=== PATIENT | female | born 1950 | race Caucasian/White ===

== ENCOUNTER 2020-12-26 09:36 | Outpatient (CLI) | payer MEDICARE, OTHER, SELFPAY ==
--- NOTE | ~2020-12-26 | NM_ITS ---
EXAMINATION: NM stress w perf spect multi DATE: 12/26/2020 13:14 INDICATION: Atypical chest pain. TECHNIQUE: Rest images were obtained following intravenous administration of 11.22 mCi Tc99m tetrofos min (Myoview). The patient performed an exercise activity. At peak exercise, 33.1 mCi Tc99m tetrofosm in (Myoview) was administered intravenously, and stress images were obtained. Data was reconstructed into short axis and horizontal and vertical long axis SPECT images. Gated SPECT images were also obta ined. COMPARISON: None. FINDINGS: There is no definite reversible or fixed perfusion abnormality to suggest ischemia or infar ction. There is no segmental wall motion abnormality. Left ventricular ejection fraction measures > 70%. IMPRESSION: 1. No definite ischemia or infarct. 2. Normal left ventricular ejection fraction measuring >70%. Reviewed, dictated and finalized at location B.
--- NOTE | 2020-12-26 10:55 | EST_ITS ---
Patient Info Name: Terri Zheng Age: 70 years : 1950 Gender: Female Ht: 68 in Wt: 195 lbs BSA: 2.08 m2 HR: 67 bpm BP: 150 / 78 mmHg Heart Rhythm: Sinus Rhythm Exam Date: 12/26/2020 11:11 AM Exam Location: [facility] Stress Patient Status: Outpatient Admit Date: 12/26/2020 Staff Ordering Physician: Skinny Zarate DO Attending Provider: Skinny Zarate DO Exercise Technologist: Nando Cartagena RDCS, RT Exercise Physician: Turner Tomlinson DO Exam Type: CA stress test treadmill w NM Study Info Indications - ATYPICAL CHEST PAIN, [place] A nuclear stress test was performed. Summary 1. 1. Negative Phil exercise stress test for ischemic ST changes by ECG criteria. 2. 2. Reduced functional capacity, achieving 4.7 METs of workload. 3. 3. Baseline hypertension with hypertensive response to exercise. 4. 4. Rapid HR response to exercise. 5. 5. Appropriate HR recovery at 1 minute post exercise. 6. 6. Nuclear scan to follow and will be reported separately. Please correlate with it. 7. 7. Patient informed of the above results. Protocol: Phil Stress ECG Details Stage: REST Duration (min): 4 min : 56 sec Speed (mph): 0.0 Grade (%): 0 HR (bpm): 67 SBP (mmHg): 150 DBP (mmHg): 78 METS: --- Stage: REST Duration (min): 5 min : 16 sec Speed (mph): 0.0 Grade (%): 0 HR (bpm): 74 SBP (mmHg): 150 DBP (mmHg): 78 METS: --- Stage: STAGE 1 Duration (min): 1 min : 0 sec Speed (mph): 1.7 Grade (%): 10 HR (bpm): 118 SBP (mmHg): 150 DBP (mmHg): 78 METS: --- Stage: STAGE 1 Duration (min): 2 min : 0 sec Speed (mph): 1.7 Grade (%): 10 HR (bpm): 136 SBP (mmHg): 150 DBP (mmHg): 78 METS: --- Stage: STAGE 1 Duration (min): 2 min : 59 sec Speed (mph): 1.7 Grade (%): 10 HR (bpm): 143 SBP (mmHg): 204 DBP (mmHg): 103 METS: --- Stage: RECOVERY Duration (min): 1 min : 0 sec Speed (mph): 0.0 Grade (%): 0 HR (bpm): 109 SBP (mmHg): 204 DBP (mmHg): 103 METS: --- Stage: RECOVERY Duration (min): 2 min : 0 sec Speed (mph): 0.0 Grade (%): 0 HR (bpm): 88 SBP (mmHg): 204 DBP (mmHg): 103 METS: --- Stage: RECOVERY Duration (min): 2 min : 13 sec Speed (mph): 0.0 Grade (%): 0 HR (bpm): 78 SBP (mmHg): 204 DBP (mmHg): 103 METS: --- Rest HR: 74 bpm Peak HR: 161 bpm Rest Sys BP: 150 mmHg Peak Sys BP: 204 mmHg Max Pred HR: 150 bpm % Max Pred HR: 107 % Target HR: 128 bpm Max RPP: 32,844 bpm*mmHg Jenkins Score: -7 Termination Reason: Reached target heart rate or workload Cardiac Symptoms: Shortness of breath Max ST Seg Deviation: -2 mm Total Time: 2 min : 59 sec Rest Odonnell BP: 78 mmHg Peak Odonnell BP: 103 mmHg Angina Score: None Total METS: 4.7 Resting ECG Sinus rhythm. Stress ECG No ST changes. Arrhythmias None. Report Signatures
== END 2020-12-26 09:37 | disposition home or self-care (01) ==
LOC: ANHCARD 09:39
PROVIDERS: PCP Internal Medicine; Visit Provider Internal Medicine
DX: R07.89 Other chest pain (principal); R06.00 Dyspnea, unspecified
CPT/HCPCS: 78452; 93017; A9502

== ENCOUNTER 2021-01-28 07:32 | Outpatient (CLI) | payer MEDICARE, OTHER, SELFPAY ==
--- NOTE | 2021-01-28 07:55 | ECHO_ITS ---
Patient Info Name: Terri Zheng Age: 70 years : 1950 Gender: Female Ht: 68 in Wt: 195 lbs BSA: 2.08 m2 HR: 70 bpm BP: 163 / 90 mmHg Heart Rhythm: Sinus Rhythm Exam Date: 01/28/2021 8:09 AM Exam Location: [facility] Pulmonary Patient Status: Outpatient Admit Date: 01/28/2021 Staff Ordering Physician: Turner Tomlinson DO [employer] Aide: Nickie Duran RDCS Attending Provider: Turner Tomlinson DO Exam Type: CA echo doppler color flow Study Info Indications R06.00 - Dyspnea, unspecified Complete two-dimensional, color flow and Doppler transthoracic echocardiogram is performed. Summary 1. Complete two-dimensional, color flow and Doppler transthoracic echocardiogram is performed. 2. Left ventricular chamber dimension is normal. 3. Left ventricular systolic function is normal, estimated at 60-65%. 4. The left ventricular diastolic function is grade I diastolic dysfunction. 5. E/e' 11 is mildly elevated. 6. There is trace tricuspid valve regurgitation. 7. No pulmonary hypertension, estimated pulmonary arterial systolic pressure is 27 mmHg. Left Ventricle E/e' 11 is mildly elevated. Left ventricular chamber dimension is normal. Left ventricular systolic function is normal, estimated at 60-65%. The left ventricular diastolic function is grade I diastolic dysfunction. Right Ventricle Right ventricular chamber dimension is normal. Right ventricular systolic function is normal. Left Atria Left atrial chamber dimension is normal. Right Atria Right atrial chamber dimension is normal. Aortic Valve The aortic valve is trileaflet. There is no aortic valve stenosis. There is no aortic valve regurgitation. Pulmonic Valve There is no pulmonic regurgitation. Mitral Valve There is no mitral valve stenosis. There is no mitral valve regurgitation. Tricuspid Valve There is trace tricuspid valve regurgitation. No pulmonary hypertension, estimated pulmonary arterial systolic pressure is 27 mmHg. Pericardium/Pleural There is no pericardial effusion. Inferior Vena Cava Normal inferior vena cava with >50% collapse upon inspiration consistent with normal right atrial pressure, 5 mmHg. Aorta The aortic root size at the sinus of Valsalva is normal. Left Ventricular Outflow Tract Name Value Normal LVOT 2D LVOT Diameter 1.9 cm LVOT Doppler LVOT Peak Gradient 4 mmHg LVOT Mean Gradient 2 mmHg LVOT VTI 26 cm LVOT VTI/AV VTI Ratio 0.8 LVOT Stroke Volume 73 ml LVOT CO 4.1 l/min LVOT CI 2.0 l/min/m2 Pulmonic Valve Name Value Normal RVOT Doppler RVOT Peak Gradient 1 mmHg PV Doppler
== END 2021-01-28 07:33 | disposition home or self-care (01) ==
LOC: ANHCARD 07:34
PROVIDERS: PCP Internal Medicine; Visit Provider Internal Medicine Cardiovascular Disease
DX: R06.00 Dyspnea, unspecified (principal)
CPT/HCPCS: 93306

== ENCOUNTER 2021-07-08 09:58 | Outpatient (CLI) | payer MEDICARE, OTHER, SELFPAY ==
--- NOTE | 2021-07-08 | ECG_ITS ---
Measurements Intervals [place] Rate: 53 P: 67 TX: 158 QRS: 20 QRSD: 90 T: 36 QT: 436 QTc: 410 Interpretive Statements SINUS BRADYCARDIA BORDERLINE ECG Electronically Signed On 07-08-2021 11:02:05 CDT by Turner Tomlinson D.O.
--- NOTE | ~2021-07-08 | XR_ITS ---
EXAMINATION: XR chest 2V DATE: 07/08/2021 11:06 INDICATION: Fatigue and chest pain TECHNIQUE: PA and lateral views of the chest are obtained. COMPARISON: 02/01/2019 FINDINGS: The lungs are free of acute opacities. There is no pleural effusion or pneumothorax. The ca rdiomediastinal silhouette is normal. There is moderate thoracic spondylosis. An old healed fracture of the left proximal humerus is noted. Surgical clips in the right upper quadrant are likely from nancy or cholecystectomy. IMPRESSION: 1. No acute cardiopulmonary abnormality. Reviewed, dictated and finalized at location B.
[2021-07-08 10:31] LABS: Basophils Absolute Auto 0.1 K/mm3 (0.0-0.1); Basophils Percent Auto 1.5 % (0.2-1.2); Eosinophils Absolute Auto 0.1 K/mm3 (0-0.3); Eosinophils Percent Auto 3.9 % (0-4.4); Hematocrit 42.7 % (37.0-47.0); Immature Granulocyte Absolute 0.01 K/mm3 (0.00-0.031); Immature Granulocyte Percent A 0.3 % (0-0.5); Lymphocytes Absolute Auto 0.84 K/mm3 (0.9-3.2); Lymphocytes Percent Auto 25.3 % (18.3-44.2); Mean Corpuscular HGB Conc 32.8 g/dl (32-36); Mean Corpuscular Hemoglobin 30.6 pg (26-34); Mean Corpuscular Volume 93.2 fl (80-100); Mean Platelet Volume 9.2 fl (7.4-10.4); Monocytes Absolute Auto 0.4 K/mm3 (0.1-0.6); Monocytes Percent Auto 12.3 % (2.6-8.5); Neutrophils Absolute Auto 1.9 K/mm3 (1.3-6.7); Neutrophils Percent Auto 56.7 % (45.5-73.1); Platelet Count Result 216 k/mm3 (150-375); Red Blood Count 4.58 M/mm3 (4.2-5.4); Red Cell Distribution Width 11.7 % (11.5-14.5); White Blood Count 3.3 K/mm3 (4.5-10.0)
[2021-07-08 12:48] LABS: INR 0.9; Prothrombin Time 12.1 Seconds (11.1-14.7)
[2021-07-08 12:49] LABS: Partial Thromboplastin Time 29.2 SECONDS (22.3-36.8)
[2021-07-08 14:24] LABS: Alanine Aminotransferase 16 U/L (4-35); Albumin Level 4.5 g/dL (3.5-5.1); Alkaline Phosphatase 90 U/L (38-126); Anion Gap 8 mmol/L (8-16); Aspartate Amino Transferase 34 U/L (14-36); Bilirubin,Total 0.8 mg/dL (0.2-1.3); Blood Urea Nitrogen 17 mg/dL (7-17); Calcium 9.7 mg/dL (8.4-10.2); Carbon Dioxide 32 mmol/L (22-30); Chloride 100 mmol/L (98-107); Estimated Glomerular Filt Rate > 60; Glucose 110 mg/dL (65-110); Potassium 3.2 mmol/L (3.4-5.0); Sodium 140 mmol/L (137-145)
== END 2021-07-08 09:59 | disposition home or self-care (01) ==
PROVIDERS: PCP Internal Medicine
DX: Z01.818 Encounter for other preprocedural examination (principal); Z79.01 Long term (current) use of anticoagulants
CPT/HCPCS: 36415; 71046; 80053; 85025; 85610; 85730; 93005

== ENCOUNTER 2022-10-06 09:26 | Outpatient (CLI) | payer MEDICARE, OTHER, SELFPAY ==
--- NOTE | 2022-10-06 10:56 | ECG_ITS ---
Measurements Intervals [place] Rate: 66 P: 51 WI: 150 QRS: 16 QRSD: 84 T: 34 QT: 400 QTc: 421 Interpretive Statements SINUS RHYTHM ATRIAL PREMATURE COMPLEX BASELINE ARTIFACT- I, III, AVR, AVL, AVF, V1-V6 BORDERLINE ECG COMPARED TO ECG 07/08/2021 10:44:37 SINUS RHYTHM NOW PRESENT Electronically Signed On 10-06-2022 12:06:57 INSURANCE AUDITOR by Turner Tomlinson D.O.
[2022-10-06 11:59] LABS: Basophils Absolute Auto 0.1 K/mm3 (0.0-0.1); Basophils Percent Auto 1.1 % (0.2-1.2); Eosinophils Absolute Auto 0.1 K/mm3 (0-0.3); Hematocrit 44.1 % (37.0-47.0); Lymphocytes Absolute Auto 1.03 K/mm3 (0.9-3.2); Lymphocytes Percent Auto 23.6 % (18.3-44.2); Mean Corpuscular HGB Conc 31.7 g/dl (32-36); Mean Corpuscular Hemoglobin 30.2 pg (26-34); Mean Corpuscular Volume 95.2 fl (80-100); Mean Platelet Volume 10.1 fl (7.4-10.4); Monocytes Absolute Auto 0.5 K/mm3 (0.1-0.6); Monocytes Percent Auto 11.5 % (2.6-8.5); Neutrophils Absolute Auto 2.7 K/mm3 (1.3-6.7); Neutrophils Percent Auto 60.8 % (45.5-73.1); Platelet Count Result 266 k/mm3 (150-375); Red Blood Count 4.63 M/mm3 (4.2-5.4); Red Cell Distribution Width 12.2 % (11.5-14.5); White Blood Count 4.4 K/mm3 (4.5-10.0)
[2022-10-06 12:07] LABS: Urine Cotinine NEGATIVE
[2022-10-06 12:10] LABS: Albumin Level 4.3 g/dL (3.5-5.1); Anion Gap 6 mmol/L (8-16); Blood Urea Nitrogen 21 mg/dL (7-17); Calcium 9.4 mg/dL (8.4-10.2); Carbon Dioxide 32 mmol/L (22-30); Chloride 101 mmol/L (98-107); Estimated Glomerular Filt Rate > 60; Glucose 95 mg/dL (65-110); Potassium 4.7 mmol/L (3.4-5.0); Sodium 139 mmol/L (137-145)
[2022-10-06 12:13] LABS: Hemoglobin A1C 5.3 % (<5.7)
== END 2022-10-06 09:27 | disposition home or self-care (01) ==
LOC: ANHSURGERY 09:34
PROVIDERS: PCP Internal Medicine; Visit Provider Orthopaedic Surgery
DX: M17.12 Unilateral primary osteoarthritis, left knee (principal); Z01.818 Encounter for other preprocedural examination; R94.31 Abnormal electrocardiogram [ECG] [EKG]
CPT/HCPCS: 80048; 80307; 82040; 83036; 85025; 87081; 93005

== ENCOUNTER 2022-10-22 01:25 | Day surgery (SDC) | payer MEDICARE, OTHER, SELFPAY ==
[2022-10-06 09:56] VITALS: BMI 31.5
--- NOTE | 2022-10-06 10:29 | PC.NURSE ---
Addendum entered by Meseret Edmonds RN 10/06/22 10:35: TOTAL JOINT CLASS 10/08/22 AT 10 AM Original Note: Report to the Outpatient Waiting Room, entrance under the green pavilion located off [address], at time _1000 on date _10/22/22 . Planned Procedure Time: __1200 . Time changes happen often and if your time is changed the preop area will call you the afternoon before. - You and your visitor will be asked to self-screen and do not enter if you have any COVID symptoms. - Only one visitor is requested with a max of two and NO children visitors are allowed at this time. - The patient visitor may be requested to leave or wait in car when not with patient due to distancing restrictions. - A mask is optional within the hospital at this time. Patients may have clear liquids (water, carbonated beverages, clear teas, apple juice) until 3 hours prior to surgery with a maximum of 20 ounces. - No food from midnight until time of surgery - Infants may have breast milk until 4 hours before surgery, formula 6 hours prior to surgery. - Children will be allowed to drink immediately following surgery. If applicable, please bring a bottle or sippy cup to assist with drinking. Juice, water, soda, and popsicles are readily available. For infants on formula, please bring formula the day of surgery. Pacifiers are allowed. Take the following medications with a SIP of water the morning of surgery: ___NONE DO NOT STOP ANY OF YOUR OTHER PRESCRIPTION MEDICATIONS PRIOR TO SURGERY ?EXCEPT THE FOLLOWING Medications to discontinue per physician _ASPIRIN AND NAPROXEN 7 DAYS PRE OP PER DR MIMS .LAST DOSE 10/14/22. ALL VITAMINS AND SUPPLEMENTS 3 DAYS PRE OP. LAST DOSE 10/18/22 Please no make-up, nail central african, hairspray, perfume, deodorant, or body powder the day of surgery. No jewelry (including any body piercings) or valuables the day of surgery, leave them at home. Please take a shower or bath the night before, or the morning of, surgery with an antibacterial soap. Wear comfortable, loose fitting clothing. Children are encouraged to wear pajamas. - Jewelry must be removed prior to entering the operating room. Rings and piercings that are not removed may be cut off. - The hospital will not accept responsibility for valuables. - Please leave all valuables, including medications, at home the day of surgery. If you are going home after surgery, a licensed backhaul driver must drive you home. - NO public transportation without another adult if you receive anesthesia. - We recommend that an adult stay with you for 24 hours following discharge. - We also recommend that you do not drive, make important decision, drink alcoholic beverages, or take any drugs that were not prescribed by your health care provider for at least 24 hours after your discharge time. Follow any additional instructions given to you from your surgeon. If you or anyone in your household have experienced Covid symptoms in the past week, please notify your surgeon or the nurse liaison at the phone number below for possible testing. VERBAL AND WRITTEN instructions given to __PATIENT AND SPOUSE AL and asked if any additional questions and then verbalized understanding. Patient advised to call surgeon office or pre surgery nurse liaison [phone] if any additional questions.
[2022-10-06 10:49] VITALS: BP 132/73; PULSE 67; RESP 18; TEMP 37.3; O2SAT 99
--- NOTE | 2022-10-20 12:32 | PM.IMHP ---
H&P: HPI History of Present Illness Date/Time: 10/20/22 12:32 Chief Complaint: Left knee DJD Narrative: 71-year-old female who presents today for left total knee arthroplasty. She had her right knee replaced in 2019. She is very happy with the results. 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 He has been treating this nonsurgically at this point she is having symptoms on regular basis. She feels this point she is ready proceed with total knee arthroplasty. Review of Systems Review of Systems: All systems reviewed & are unremarkable except as noted in HPI and below PMFSH Past Medical History Medical History Drop foot gait Neuropathy Surgical History Surgical History (Updated 10/22/22 @ 11:33 by Braden Patel MD) History of total knee arthroplasty Family History Family History Father Family history of malignant neoplasm Patient's father is Mother Family history of malignant neoplasm Patient's mother is Other Depression Family history of alcoholism Family history of atrial fibrillation Family history of chronic obstructive pulmonary disease Family history of congestive heart failure Family history of elevated blood lipids Family history of lung disease Family history of malignant neoplasm of breast in first degree relative Family history of mental disorder Family history of obesity Hypertension Social History Social History Years smoked: 2 Smoking status: Former smoker Tobacco type: cigarettes Second hand tobacco smoke exposure: No Smoking end date: 09/07/74 Additional smoking assessment comments: DENIES ANY FORM OF TOBACCO USE Alcohol intake: current Lack of Transportation: No Lack of Food: Never True Current Housing: I Have Housing Concerned About Future Housing: No Difficulty Paying Gas/Electric Bills: No Difficulty Paying for Meds: No Currently Unemployed: No Education: Master's Degree or Higher Difficulty w/ Childcare or Family Care: No Living arrangements: with family Spiritual care concerns: No Meds Home Medications and Allergies Home Medications Medication Instructions Recorded Confirmed Type ascorbic acid (vitamin C) 1,000 mg 1 gm PO DAILY 12/20/19 10/22/22 History tablet glucosamine [id number] 1 tablet PO DAILY 12/20/19 10/22/22 History miles 1,500 mg-400 unit-100 mg tablet (Osteo Bi-Flex (5-Loxin)) diphenhydramine HCl 25 mg tablet 25 mg PO QID PRN Allergy Symptoms 06/20/20 10/22/22 History (Benadryl Allergy) aspirin 325 mg tablet 325 mg PO DAILY PRN Pain 01/08/21 10/22/22 History famotidine 20 mg tablet (Pepcid) 20 mg PO DAILY PRN Heartburn 01/08/21 10/22/22 History naproxen sodium 220 mg capsule 220 mg PO BID PRN Pain 01/08/21 10/22/22 History (Aleve) indapamide 1.25 mg tablet 1.25 mg PO DAILY #90 tabs 08/09/22 10/22/22 Rx olmesartan 20 mg tablet 20 mg PO DAILY #90 tabs 08/25/22 10/22/22 Rx alpha lipoic acid 600 mg tablet 1,200 mg PO DAILY 10/06/22 10/22/22 History zvma-dwoxmcebv-slpjfjbcdneyi-aldioxa 1 ea topical PRN PRN FUNGAL 10/06/22 10/22/22 History topical powder ergocalciferol (vitamin D2) 1,250 1,250 mcg PO WEEKLY #13 caps 10/21/22 10/22/22 Rx mcg (50,000 unit) capsule (Vitamin D2) simvastatin 40 mg tablet 40 mg PO DAILY #90 tabs 10/21/22 10/22/22 Rx Allergies Allergy/AdvReac Type Severity Reaction Status Date / Time amlodipine Allergy Mild headache Verified 10/06/22 09:57 and tachycardia lisinopril Allergy Mild Cough Verified 10/06/22 09:57 nickel AdvReac Severe RASH Verified 10/22/22 09:52 omega-3 acid ethyl esters AdvReac Severe HEADACHES Verified 10/22/22 09:52 watermelon AdvReac Severe HEADACHES Verified 10/22/22 09:52 guaifen
[2022-10-22] VITALS (12 sets, daily range): BP systolic 122–135; BP diastolic 56–66; PULSE 71–104; RESP 12–20; TEMP 36.2–37.4; O2SAT 94–100
--- NOTE | ~2022-10-22 | XR_ITS ---
EXAMINATION: XR knee LT 2V DATE: 10/22/2022 15:55 INDICATION: Left knee arthroplasty. Postop. TECHNIQUE: 2 views of left knee were obtained. COMPARISON: None. FINDINGS: There is a total left knee arthroplasty without patellar resurfacing in near-anatomic align ment. No fracture. There are tiny osteophytes of the patella. There is gas in the knee joint and soft tissues, consistent with recent surgery. IMPRESSION: 1. Total left knee arthroplasty in near-anatomic alignment. Reviewed, dictated and finalized at location A. OR [employer] DIRECT[employer]
[2022-10-22] MEDS: ACETAMINOPHEN 500 MG TABLET 1000 MG PO ×2 (10:13→17:46)
[2022-10-22] MEDS: LACTATED RINGERS 1,000 ML 30 ML IV CONT ×2 (10:20→15:55)
--- NOTE | 2022-10-22 11:33 | WPDANESEPPF ---
Anes - Initial Pre Proc Eval Procedure: Operation Date: 10/22/22 12:00 Proposed Procedures p Left Total Knee Arthroplasty - Sarabjit Sims MD Date/Time: 10/22/22 11:33 Surgeon: Sarabjit Sims MD Pre Op Diagnosis: O.A. Lt Knee Patient Data Age: 71 Gender: F Height: 1.73 m Weight: 92 kg Last Vital Signs Temp 36.5 C 10/22/22 09:48 Pulse 71 10/22/22 09:48 Resp 20 10/22/22 09:48 BP 128/62 10/22/22 09:48 Pulse Ox 100 10/22/22 09:48 O2 Del Method Room Air 10/22/22 09:48 Allergies Allergy/AdvReac Type Severity Reaction Status Date / Time amlodipine Allergy Mild headache Verified 10/06/22 09:57 and tachycardia lisinopril Allergy Mild Cough Verified 10/06/22 09:57 nickel AdvReac Severe RASH Verified 10/22/22 09:52 omega-3 acid ethyl esters AdvReac Severe HEADACHES Verified 10/22/22 09:52 watermelon AdvReac Severe HEADACHES Verified 10/22/22 09:52 guaifenesin AdvReac Intermediate GETS Verified 10/06/22 09:57 SEVERELY DEPRESSED hydrocodone AdvReac Intermediate Hallucinati Verified 10/06/22 09:57 ng morphine AdvReac Intermediate Hallucinati Verified 10/06/22 09:57 ng erythritol AdvReac Mild Diarrhea Verified 10/22/22 09:52 spironolactone AdvReac Mild Leg pain Verified 10/22/22 09:52 CARDAMOM Allergy Severe THROAT Uncoded 10/06/22 09:57 SWELLING. Home Medications Medication Instructions Recorded Confirmed Type ascorbic acid (vitamin C) 1,000 mg 1 gm PO DAILY 12/20/19 10/22/22 History tablet glucosamine [id number] 1 tablet PO DAILY 12/20/19 10/22/22 History miles 1,500 mg-400 unit-100 mg tablet (Osteo Bi-Flex (5-Loxin)) diphenhydramine HCl 25 mg tablet 25 mg PO QID PRN Allergy Symptoms 06/20/20 10/22/22 History (Benadryl Allergy) aspirin 325 mg tablet 325 mg PO DAILY PRN Pain 01/08/21 10/22/22 History famotidine 20 mg tablet (Pepcid) 20 mg PO DAILY PRN Heartburn 01/08/21 10/22/22 History naproxen sodium 220 mg capsule 220 mg PO BID PRN Pain 01/08/21 10/22/22 History (Aleve) indapamide 1.25 mg tablet 1.25 mg PO DAILY #90 tabs 08/09/22 10/22/22 Rx olmesartan 20 mg tablet 20 mg PO DAILY #90 tabs 08/25/22 10/22/22 Rx alpha lipoic acid 600 mg tablet 1,200 mg PO DAILY 10/06/22 10/22/22 History ishj-biituhwtz-qwaztoboyiddc-aldioxa 1 ea topical PRN PRN FUNGAL 10/06/22 10/22/22 History topical powder ergocalciferol (vitamin D2) 1,250 1,250 mcg PO WEEKLY #13 caps 10/21/22 10/22/22 Rx mcg (50,000 unit) capsule (Vitamin D2) simvastatin 40 mg tablet 40 mg PO DAILY #90 tabs 10/21/22 10/22/22 Rx Laboratory Tests 10/22/22 10:17 Blood Type O Positive Antibody Screen Negative Patient hx anesthesia problems: none Family hx anesthesia problems: none Results Review: All pre-operative results and documents have been reviewed as part of the pre-operative evaluation. [facility] Past Medical History Medical History Drop foot gait Neuropathy Surgical History Surgical History (Updated 10/22/22 @ 11:33 by Braden Patel MD) History of total knee arthroplasty Family History Family History Father Family history of malignant neoplasm Patient's father is Mother Family history of malignant neoplasm Patient's mother is Other Depression Family history of alcoholism Family history of atrial fibrillation Family history of chronic obstructive pulmonary disease Family history of congestive heart failure Family history of elevated blood lipids Family history of lung disease Family history of malignant neoplasm of breast in first degree relative Family history of mental disorder Family history of obesity Hypertension Social History Social History Years smoked: 2 Smoking status: Former smoker T
[2022-10-22] MEDS: TRANEXAMIC ACID 1,000MG/ISO100 1,000 MG/100 ML BAG 200 MG IVPB (11:46)
--- NOTE | 2022-10-22 12:05 | WPDHPUPDATE1 ---
History and Physical Update Update Date/Time: 10/22/22 12:05 History and Physical has been reviewed, including an updated exam of the patient. There are NO changes in the patient's condition. Risks, benefits, and alternatives have been discussed and questions answered. Patient agrees to proceed with procedure.
[2022-10-22] MEDS: ceFAZolin 2 GM/D5W 50 ML 2 GM/50 ML BAG IVPB (12:18)
[2022-10-22] MEDS: ceFAZolin SODIUM 1 GM VIAL 3 GM (12:49)
[2022-10-22] MEDS: GENTAMICIN BONE CEMENT REFOBACIN 1 EACH TOPICAL (14:12)
[2022-10-22] MEDS: ceFAZolin SODIUM 1 GM VIAL 2 GM IV PUSH (14:58)
[2022-10-22] MEDS: TRANEXAMIC ACID 1,000 MG/10 ML AMPUL 1000 MG IV PUSH (14:58)
--- NOTE | 2022-10-22 16:02 | PM.OP ---
Procedure Note - Brief Procedure Note - Brief Date of procedure: 10/22/22 Pre-op diagnosis: O.A. Lt Knee Left knee DJD Procedure performed: Left total knee arthroplasty Description of procedure: 71-year-old female who underwent left total knee arthroplasty on 10/22. I was involved in the procedure including positioning the patient on the OR table. First assisting through the time of surgery and wound closure. I also assisted in getting patient to recovery. Total time spent was 4 hours Surgeon: IWONA Buck
--- NOTE | 2022-10-22 16:17 | W.PM.PROC2 ---
Procedure Note - Detailed Date of Procedure 10/22/22 Pre-op Diagnosis O.A. Lt Knee Post-op Diagnosis Same Procedure Performed Left total knee arthroplasty Surgeon Sarabjit Sims MD [employer] Denia Anesthesia General Description of Procedure patient was brought to the operating room and general anesthesia was administered. She received 2 g of Ancef weight based vancomycin 1 g of tranexamic acid preoperatively. Left knee was prepped draped usual fashion. Under anesthesia she still had a 10 degree flexion contracture. Flexion was to 130. Limb was exsanguinated and tourniquet was elevated to 300 mmHg. The lower this to 250 at the 30 minute sofia we saw that her blood pressure remained in the 120 systolic. An 8 in longitudinal midline incision was used a vastus medialis splitting approach utilized. Infrapatellar and suprapatellar fat pads were excised a quadriceps synovectomy carried out. There were prominent patellar osteophytes which were debrided I nose the bone was very soft. She had intact cartilage over the patella otherwise and I thought this was most suitable for non resurfacing. A guide chiki was inserted down the femoral canal after aspiration of canal contents using the 5 degree valgus cutting bushing 10 mm of bone removed the distal femur. This removed about 6 from the lateral side. Next the tibial plateau was cut. This removed 2 mm and a low point lateral tibial plateau and was a skim cut the posterior aspect the medial tibial plateau which left a little bit of cartilage on the posterior 1/4 of the medial tibial plateau. Cut was made perpendicular to the axis of the tibia. Meniscal remnants were excised the PCL recessed. Flexion gap was assessed it was 6 mm medially 10 mm laterally. I felt we would need additional tibial plateau bone removed an additional 2 mm of bone was removed at this time we confirmed alignment of the cut and found medial gap of about 8.5 mm lateral gap 12 mm. Femoral sizing guide was applied to the distal femur set at 5? of external rotation and this was appropriate relative to Whitesides line as well. Posterior referencing pinholes were placed and the 67.5 vanguard cutting block applied AP and chamfer cuts were made this fit the anterior cortex nicely and was line to line medial to lateral. Her bone was quite soft particularly in the medial distal femur anteriorly and central tibial plateau. We will plan to check her bone density in the next several weeks. The knee was trialed and there was ample plate medially but it was too tight laterally with the 10 insert tendon to book open the medial side. The IT band was lengthened and the posterolateral capsule released from the posterolateral margin of the tibial plateau. The IT band was released using a pie crusting technique. We did not perform a lateral retinacular release. On repeat trialing with the 11, the knee was still just a little bit loose in flexion with the 11 opening up 2 mm laterally 3 mm medially. We still had a fairly positive bounce. Residual posterior femoral osteophytes were removed and a very conservative central posterior capsule release performed. We trialed with the 12 which gave I felt optimal stability at 90? with 1-2 medial opening 1 lateral opening and gravity flexion to 130 with central patellar tracking. However still had a barely positive bounce with no play laterally on varus stress 2-3 mm opening medially with valgus stress. We examined the distal femoral cut with 5 degree chiki again and I felt that our distal femoral cut relative to the axis of the tibia was at closer to 4? valgus therefore we reapplied the distal femoral cutting guide to remove an additional 1 mm of bone from the lateral femoral condyle but none medially and with this the distal femoral cutting guide set flush both surfaces a 5 degree Robbins. On read trialing the knee came out just to full extension a negative bounce 1 mm lateral opening and 2 mm medial opening at 5? of fl
--- NOTE | 2022-10-22 16:48 | SUR.PHASEI ---
1332 - dr. copeland at bedside talking with pt
--- NOTE | 2022-10-22 17:10 | ADMGEN ---
This patient, Terri Zheng, was admitted to Medical Room 250-01. Patient/family oriented to hospital policies and general routines including ID bracelet, bed and alarms, visiting hours, pain management, procedures, bathroom and other care routines, personal items, smoking policy, room service/diet, and visiting hours. Information on how to activate the Rapid Response Team has been discussed. Patient/Family are encouraged to report perceived risks to care and to ask questions if they do not understand what they are told or what they should do.
[2022-10-22] MEDS: FAMOTIDINE 20 MG TABLET PO (21:03)
[2022-10-22] MEDS: oxyCODONE HCL (*CRX) 5 MG TAB IR PO (21:03)
[2022-10-23 02:45] VITALS: BP 114/42; PULSE 101; RESP 18; TEMP 36.3; O2SAT 97
[2022-10-23 06:16] LABS: Basophils Percent Auto 0.1 % (0.2-1.2); Hematocrit 34.6 % (37.0-47.0); Hemoglobin 11.3 g/dL (12.0-15.0); Immature Granulocyte Absolute 0.05 K/mm3 (0.00-0.031); Immature Granulocyte Percent A 0.4 % (0-0.5); Lymphocytes Absolute Auto 0.56 K/mm3 (0.9-3.2); Lymphocytes Percent Auto 4.4 % (18.3-44.2); Mean Corpuscular HGB Conc 32.7 g/dl (32-36); Mean Corpuscular Hemoglobin 29.9 pg (26-34); Mean Corpuscular Volume 91.5 fl (80-100); Mean Platelet Volume 9.9 fl (7.4-10.4); Monocytes Absolute Auto 0.8 K/mm3 (0.1-0.6); Monocytes Percent Auto 6.3 % (2.6-8.5); Neutrophils Absolute Auto 11.3 K/mm3 (1.3-6.7); Neutrophils Percent Auto 88.8 % (45.5-73.1); Platelet Count Result 231 k/mm3 (150-375); Red Blood Count 3.78 M/mm3 (4.2-5.4); Red Cell Distribution Width 11.8 % (11.5-14.5); White Blood Count 12.7 K/mm3 (4.5-10.0)
[2022-10-23 06:25] LABS: Anion Gap 6 mmol/L (8-16); Blood Urea Nitrogen 19 mg/dL (7-17); Calcium 8.3 mg/dL (8.4-10.2); Carbon Dioxide 27 mmol/L (22-30); Chloride 94 mmol/L (98-107); Estimated CRCL calculation 75 ml/min; Estimated Glomerular Filt Rate > 60; Glucose 134 mg/dL (65-110); Potassium 3.7 mmol/L (3.4-5.0); Sodium 127 mmol/L (137-145)
[2022-10-23 06:45] VITALS: BP 140/56; PULSE 101; RESP 20; TEMP 36.8; O2SAT 98
--- NOTE | 2022-10-23 06:59 | PM.PNORT ---
Subjective Subjective Date/Time Seen: 10/23/22 06:59 Postop day 1 patient is alert. She is afebrile vital signs are stable. Morning labs are noted. Sodium is 127. Patient is asymptomatic from this. She has been up to the restroom overnight. Overall pain is very well controlled. Dressing is dry and intact. She is able do straight leg raise in the bed. Overall patient feels very good and is anxious to go home. She work with physical therapy this morning and this afternoon and once IV antibiotics have been completed we will discharge her home this afternoon. Objective Data Vital Signs Vital Signs: Vital Signs - 24 hr 10/22/22 09:48 10/22/22 15:55 10/22/22 16:10 Temperature 36.5 C 37.4 C Pulse Rate 71 102 H 92 Respiratory Rate 20 16 14 Blood Pressure 128/62 128/58 L 127/56 L Pulse Oximetry 100 100 100 Oxygen Delivery Room Air Simple Face Mask Simple Face Mask Oxygen Flow Rate 8 8 10/22/22 16:25 10/22/22 16:40 10/22/22 16:55 Temperature Pulse Rate 88 98 98 Respiratory Rate 12 16 12 Blood Pressure 122/61 131/64 131/62 Pulse Oximetry 100 95 98 Oxygen Delivery Simple Face Mask Room Air Room Air Oxygen Flow Rate 8 10/22/22 17:15 10/22/22 17:00 10/22/22 17:15 Temperature 36.2 C L 36.3 C L Pulse Rate 96 94 Respiratory Rate 14 18 18 Blood Pressure 135/66 129/56 L Pulse Oximetry 98 94 98 Oxygen Delivery Room Air Oxygen Flow Rate 10/22/22 17:45 10/22/22 18:40 10/22/22 22:51 Temperature 36.2 C L 36.4 C 36.9 C Pulse Rate 96 93 104 H Respiratory Rate 18 18 20 Blood Pressure 127/66 122/57 L 126/66 Pulse Oximetry 97 98 99 Oxygen Delivery Oxygen Flow Rate 10/22/22 20:00 Temperature Pulse Rate Respiratory Rate Blood Pressure Pulse Oximetry 99 Oxygen Delivery Room Air Oxygen Flow Rate Intake/Output Intake/Output: Intake & Output 10/20/22 10/21/22 10/22/22 10/23/22 23:59 23:59 23:59 23:59 Intake Total 1170 50 Balance 1170 50 Meds/Results Medications: Active Medications Generic Name Dose Route Start Last Admin Trade Name Freq PRN Reason Stop Dose Admin Acetaminophen 1,000 mg 10/22/22 18:00 10/23/22 04:44 Acetaminophen 500 Mg Tablet PO Not Given Q6HR [facility] Apixaban 2.5 mg 10/23/22 09:00 Apixaban 2.5 Mg Tablet PO 11/03/22 21:01 Q12HR [facility] Calcium Citrate 1 tablet 10/22/22 17:00 10/22/22 17:40 Calcium Citrate 315 Mg/Vitamin D 250 Units Tab PO Not Given BID [facility] Celecoxib 200 mg 10/23/22 08:00 Celecoxib 200 Mg Capsule PO DAILY@0800 [facility] Diphenhydramine HCl 25 mg 10/22/22 17:00 Diphenhydramine Hcl Inj 50 Mg/Ml Vial IV PUSH Q6H PRN Itching Ergocalciferol 50,000 units 10/26/22 09:00 Ergocalciferol 50,000 Units Capsule PO WEEKLY [facility] Famotidine 20 mg 10/22/22 21:00 10/22/22 21:03 Famotidine 20 Mg Tablet PO 20 mg Q12HR KATHERINE Administration Vancomycin HCl 1,000 mg in 250 mls @ 250 mls/hr 10/22/22 22:00 10/22/22 22:41 Vancomycin 1,000 Mg/D5w 250 Ml IVPB 10/23/22 10:59 Infused Q12H [facility] Infusion Cefazolin Sodium 1 gm in 50 mls @ 100 mls/hr 10/22/22 20:00 10/23/22 05:15 Ancef 1 Gm/D5w 50 Ml Pm IVPB 10/23/22 12:29 Infused Q8H [facility] Infusion Indapamide 1.25 mg 10/23/22 09:00 Indapamide 1.25 Mg Tablet PO DAILY KATHERINE Naloxone HCl 0.1 mg 10/22/22 17:00 Naloxone Hcl 0.4 Mg/Ml Vial IV PUSH Q2M PRN Opiate Reversal Olmesartan 20 mg 10/23/22 09:00 Olmesartan Medoxomil 20 Mg Tablet PO DAILY [facility] Ondansetron HCl 4 mg 10/22/22 17:00 Ondansetron Inj 4 Mg/2 Ml Vial IV PUSH Q4H PRN Nausea And Vomiting Oxycodone HCl 5 mg 10/22/22 17:00 Oxycodone Hcl (*Crx) 5 Mg Tab Ir PO Q4H PRN Pain Rated 4-6 Oxycodone HCl 5 mg 10/22/22 21:00 10/23/22 04:44 Oxycodone Hcl (*Crx) 5 Mg Tab Ir PO Not Given Q4HR KATHERINE Polyethylene Glycol 17 gm 10/23/22 09:00 Polyethylene Glycol 3350 17 Gm Powd.Pack PO QAM
--- NOTE | 2022-10-23 07:04 | PM.DS ---
DS: Admitting Diagnosis Discharge Date 10/23 Admitting Diagnosis left knee DJD DS: Discharge Diagnosis Discharge Diagnosis (1) Left knee DJD: Code(s): M17.12 - Unilateral primary osteoarthritis, left knee Status: Acute DS: Summary Hospital Course Hospital Course: 1-year-old female who underwent left total knee arthroplasty on 10/22. Underwent the procedure without complications. Postoperatively she has been afebrile vital signs are stable. Dressing is dry and intact. Patient has neuropathy in both lower extremities. There has been no change in that status since surgery. Patient has been up to the restroom overnight the day of surgery. She is on Eliquis for DVT prophylaxis for 2 weeks. Pain is well controlled with scheduled Tylenol as well as oxycodone 5 mg. She is also on Celebrex 200 mg daily. She is on no extended antibiotics. Patient will also go home on Senokot and MiraLax for constipation. Patient will be discharged home on 10/23. She has outpatient therapy starting next Thursday. Patient was advised to keep the leg elevated at home to prevent swelling but do her exercises on an hourly basis. She has any questions or concerns she is to call the office otherwise we will see her at her point to date. Time Spent with Patient Time attestation: Total time spent providing and/or coordinating discharge services: DS: Data Data Completed and Pending Labs on day of discharge: Labs from last 24 hours 10/23/22 10/23/22 10/22/22 05:47 05:47 10:17 WBC 12.7 H RBC 3.78 L Hgb 11.3 L Hct 34.6 L MCV 91.5 MCH 29.9 MCHC 32.7 RDW 11.8 Plt Count 231 MPV 9.9 Immature Gran % (Auto) 0.4 Neut % (Auto) 88.8 H Lymph % (Auto) 4.4 L Miner % (Auto) 6.3 Eos % (Auto) 0.0 Baso % (Auto) 0.1 L Lymph # (Auto) 0.56 L Miner # (Auto) 0.8 H Eos # (Auto) 0.0 Baso # (Auto) 0.0 Abs Immat Gran (auto) 0.05 H Absolute Neuts (auto) 11.3 H Absolute Nucleated RBC 0.0 Nucleated RBC % 0.0 Sodium 127 L Potassium 3.7 Chloride 94 L Carbon Dioxide 27 Anion Gap 6 L BUN 19 H Creatinine 0.70 Estim Creat Clear Calc 75 Estimated GFR > 60 Glucose 134 H Calcium 8.3 L Blood Type O Positive Antibody Screen Negative Discharge Plan Discharge Patient Disposition: Home, Self-Care Discharge Instructions: SARABJIT SIMS M.D [facility], [facility] [address] [place] [address] POST-OPERATIVE DISCHARGE INSTRUCTIONS ANTERIOR TOTAL HIP ARTHROPLASTY 1. Move toes/feet up and down every hour while awake. 2. Be up walking every hour while awake. 3. Use cane in hand opposite of side of hip surgery or walker as comfort allows. Avoid sitting in a chair unless eating, receiving visitors or using the toilet. 4. When resting, lie on back with leg elevated above heart to minimize swelling. Significant swelling could indicate a blood clot and if this occurs, call the office (or go to the ER) to have a venous ultrasound performed. 5. Wound Care: Keep dry sponge on wound for 2 weeks. Use minimal tape. 6. Follow weight bearing status as instructed. 7. May shower with dressing off. Stand Alone Forms: General Discharge Instructions Follow-up/Referrals: Sarabjit Sims MD [Physician] - Keep Reg. Scheduled Appt. Discharge Medications: New acetaminophen 500 mg Tablet 1,000 mg PO Q6HR Qty: 90 0RF Eliquis 2.5 mg Tablet 2.5 mg PO Q12HR Qty: 28 0RF celecoxib [Celebrex] 200 mg Capsule 200 mg PO DAILY@0800 Qty: 60 0RF sennosides-docusate sodium [Senokot-S] 8.6-50 mg Tablet 2 tab-cap PO BID Qty: 60 0RF polyethylene glycol 3350 [Miralax] 17 gram Powder In Packet 17 g PO QAM Qty: 30 0RF oxycodone 5 mg Tablet 5 mg PO Q4HR Qty: 40 0RF Continued diphenhydramine HCl [Benadryl Allergy] 25 mg tablet 25 mg PO QID PRN (Reason: Allergy
[2022-10-23] MEDS: SENNA/DOCUSATE SODIUM TABLET 2 TAB PO (08:27)
[2022-10-23] MEDS: CELECOXIB 200 MG CAPSULE PO (08:27)
[2022-10-23] MEDS: polyethylene glycoL 3350 17 GM POWD.PACK PO (08:28)
[2022-10-23] MEDS: APIXABAN 2.5 MG TABLET PO (08:28)
[2022-10-23] MEDS: oxyCODONE HCL (*CRX) 5 MG TAB IR PO ×2 (08:29→12:41)
[2022-10-23] MEDS: SIMVASTATIN 20 MG TABLET 40 MG PO (08:29)
[2022-10-23] MEDS: FAMOTIDINE 20 MG TABLET PO (08:30)
[2022-10-23] MEDS: OLMESARTAN MEDOXOMIL 20 MG TABLET PO (08:30)
[2022-10-23] MEDS: INDAPAMIDE 1.25 MG TABLET PO (08:32)
[2022-10-23 08:34] VITALS: RESP 20; O2SAT 98
--- NOTE | 2022-10-23 09:27 | P.PNAN_ITS ---
Anes - Prog Note Post-Op Date/Time: 10/23/22 09:27 Cardiovascular status: normal Respiratory status: normal Airway patency: baseline Mental status: baseline Post-Op hydration status: normal Vital Signs: Last Vital Signs Temp 98.3 F 10/23/22 06:45 Pulse 101 H 10/23/22 06:45 Resp 20 10/23/22 08:34 BP 140/56 L 10/23/22 06:45 Pulse Ox 98 10/23/22 08:34 O2 Del Method Room Air 10/23/22 08:34 O2 Flow Rate 8 10/22/22 16:25 Pain Score (VAS): 2 I/O: Intake & Output 10/22/22 10/23/22 10/23/22 23:59 07:59 15:59 Intake Total 520 650 Balance 520 650 Laboratory Tests 10/23/22 05:47 10/23/22 05:47 10/22/22 10/23/22 10/23/22 10:17 05:47 05:47 WBC 12.7 H RBC 3.78 L Hgb 11.3 L Hct 34.6 L MCV 91.5 MCH 29.9 MCHC 32.7 RDW 11.8 Plt Count 231 MPV 9.9 Immature Gran % (Auto) 0.4 Neut % (Auto) 88.8 H Lymph % (Auto) 4.4 L Murray % (Auto) 6.3 Eos % (Auto) 0.0 Baso % (Auto) 0.1 L Lymph # (Auto) 0.56 L Murray # (Auto) 0.8 H Eos # (Auto) 0.0 Baso # (Auto) 0.0 Abs Immat Gran (auto) 0.05 H Absolute Neuts (auto) 11.3 H Absolute Nucleated RBC 0.0 Nucleated RBC % 0.0 Sodium 127 L Potassium 3.7 Chloride 94 L Carbon Dioxide 27 Anion Gap 6 L BUN 19 H Creatinine 0.70 Estim Creat Clear Calc 75 Estimated GFR > 60 Glucose 134 H Calcium 8.3 L Blood Type O Positive Antibody Screen Negative Post-procedural complaints: none Patient Feedback: Patient satisfied with anesthetic care.
[2022-10-23 10:09] VITALS: BP 110/54; PULSE 92; RESP 16; TEMP 36.7; O2SAT 96
[2022-10-23] MEDS: ACETAMINOPHEN 500 MG TABLET 1000 MG PO (11:40)
== END 2022-10-23 14:00 | disposition home or self-care (01) ==
LOC: ANHSURGERY 09:38 → ANH2MED 17:01
PROVIDERS: Physician Assistant Surgical; PCP Internal Medicine; Visit Provider Orthopaedic Surgery
PROC: (CPT 27447; principal; 2022-10-22 12:00)
DX: M17.12 Unilateral primary osteoarthritis, left knee (principal); Z79.82 Long term (current) use of aspirin; Z87.891 Personal history of nicotine dependence; E66.9 Obesity, unspecified; Z68.30 Body mass index [BMI] 30.0-30.9, adult
CPT/HCPCS: 27447; 36415; 73560; 80048; 85025; 86850; 86900; 86901; 97110; 97161; 97165; A9270; C1713; C1776; J0171; J0330; J0690; J1100; J1170; J1885; J2250; J2370; J2405; J2704; J2795; J3010; J3370; J7120

== ENCOUNTER 2024-09-15 11:09 | Outpatient (CLI) | payer MEDICARE, OTHER, SELFPAY ==
[2024-09-15 11:26] LABS: Basophils Absolute Auto 0.1 K/mm3 (0.0-0.1); Basophils Percent Auto 1.5 % (0.2-1.2); Eosinophils Absolute Auto 0.1 K/mm3 (0-0.3); Eosinophils Percent Auto 1.3 % (0-4.4); Hematocrit 44.8 % (37.0-47.0); Hemoglobin 14.7 g/dL (12.0-15.0); Immature Granulocyte Absolute 0.01 K/mm3 (0.00-0.031); Immature Granulocyte Percent A 0.3 % (0-0.5); Lymphocytes Absolute Auto 0.73 K/mm3 (0.9-3.2); Lymphocytes Percent Auto 18.5 % (18.3-44.2); Mean Corpuscular HGB Conc 32.8 g/dl (32-36); Mean Corpuscular Hemoglobin 29.9 pg (26-34); Mean Corpuscular Volume 91.2 fl (80-100); Mean Platelet Volume 11.3 fl (7.4-10.4); Monocytes Absolute Auto 0.4 K/mm3 (0.1-0.6); Monocytes Percent Auto 9.4 % (2.6-8.5); Neutrophils Absolute Auto 2.7 K/mm3 (1.3-6.7); Platelet Count Result 109 k/mm3 (150-375); Red Blood Count 4.91 M/mm3 (4.2-5.4); Red Cell Distribution Width 11.5 % (11.5-14.5)
[2024-09-15 14:35] LABS: Iron 154 ug/dL (37-170)
[2024-09-15 14:45] LABS: Percent Iron Saturation 38 % (20-50)
[2024-09-15 16:44] LABS: Alanine Aminotransferase 12 U/L (6-35); Albumin Level 4.5 g/dL (3.5-5.1); Alkaline Phosphatase 101 U/L (38-126); Anion Gap 7 mmol/L (4-12); Aspartate Amino Transferase 26 U/L (14-36); Bilirubin,Total 0.8 mg/dL (0.2-1.3); Blood Urea Nitrogen 16 mg/dL (7-17); Calcium 9.8 mg/dL (8.4-10.2); Carbon Dioxide 29 mmol/L (22-30); Chloride 103 mmol/L (98-107); Estimated Glomerular Filt Rate > 60; Glucose 96 mg/dL (65-110); Potassium 4.3 mmol/L (3.4-5.0); Sodium 139 mmol/L (137-145)
[2024-09-15 17:47] LABS: Folic Acid 10.3 ng/mL (2.76->20)
[2024-09-18 21:48] LABS: Platelet Antibody, Direct NEGATIVE (NEGATIVE)
[2024-09-19 05:34] LABS: Methylmalonic Acid 314 nmol/L (69-390)
[2024-09-19 14:38] LABS: Soluble Transferrin Receptor 1.08 mg/L (0.76-1.76)
== END 2024-09-15 11:10 | disposition home or self-care (01) ==
LOC: ANHLAB 11:10
PROVIDERS: PCP Internal Medicine; Visit Provider Internal Medicine Hematology & Oncology
DX: D64.9 Anemia, unspecified (principal); D69.59 Other secondary thrombocytopenia
CPT/HCPCS: 36415; 80053; 82607; 82728; 82746; 83540; 83550; 83921; 84238; 85025; 86023

== ENCOUNTER 2024-10-04 08:47 | Outpatient (CLI) | payer MEDICARE, OTHER, SELFPAY ==
--- NOTE | ~2024-10-04 | US_ITS ---
Abdominal Sonogram: Real-time sonographic imaging of the abdomen was performed. Clinical History: Secondary thrombocytopenia Findings: The liver appears normal with no evidence of mass lesion or bile duct dilatation. Main por augie vein demonstrates normal direction of flow. The spleen is normal in size without evidence of foca l lesion. The gallbladder is absent, compatible prior cholecystectomy. The common bile duct measures 3 mm. The visualized pancreas, aorta, and IVC are unremarkable. The right kidney measures 11.2 cm in length and the left kidney measures 10.7 cm. There is no hydronephrosis or renal calculus. Impression: Status post cholecystectomy, otherwise unremarkable exam. Reviewed, dictated and finalized at location [facility] Impression: Status post cholecystectomy, otherwise unremarkable exam.
--- OUTSIDE RECORDS SUMMARY | 2024-10-04 09:05 | XMS_ITS ---
Author Organization [facility] Address [address] [place] [address] Phone Care Team Providers Care Log Handler Name Role Phone Unavailable Unavailable Unavailable Problems Includes: Active, inactive, and resolved Problems All Visits Onset Date Resolved Date Provider Condition S tatus HYPERLIPIDEMIA NEC/NOS 08/28/2010 BARRETT KEITH M.D. Active Last Documented On 0 3:46PM ; [facility] HYPERTENSION NOS 08/28/2010 ARMINDA KEITH M.D. Active Last Documented On 0 3:47PM ; [facility] Plan of Treatment Instructions to patient Instructions for patient : B reast Self Exam discussed. Reviewed monthly self breast examination and technique Last Documented On 1 9:45AM ; [facility] Recommend diet and exercise at least 30 min three times per week Last Documented On 1 9:45AM ; [facility] Discussed Gardasil vaccinati on and recommend vaccination for HPV prevention. Handout given. Patient undertsands sexual transmission of high-risk HPV and association with abnormal pap smear and cervical cancer. recommend to decrease high risk behaviors such as: number of sexual partners, smoking, and contraceptive use Last Documented On 1 9:45AM ; [facility] Recommend preventative vacci nation including but not limited to influenza/flu vaccine, DTP, Rubella, Hepatitis B vaccination series Last Documented On 1 9:45AM ; [facility] Recommend annual pap smear e xamination or every three year if high risk hpv negative and 3 consecutive normal pap examination during preceding three years Last Documented On 1 9:45AM ; [facility] Recommend TSH, fasting gluco se, fasting lipid panel, CBC, BMP Last Documented On 1 9:45AM ; [facility] Recommend Calcium supplement ation and weight bearing exercise Last Documented On 1 9:45AM ; [facility] Recommended Bone Density Last Documented On 1 9:45AM ; [facility] Recommended Colonoscopy Pt r eferred to Gastroenetrologist. Pt understands that recommendation for colonoscopy is every 10 years after the age of 50 or age of 40 if first degree relative with history of colon cancer. Patient understands that failure to follow recommendation can lead to delayed diagnosis of colon cancer and patient accepts all responsibility regarding scheduling and follow up with data center operator Last Documented On 1 9:45AM ; [facility] Instructions for patient : B reast Self Exam discussed. Reviewed monthly self breast examination and technique Last Documented On 0 4:06PM ; [facility] Recommend diet and exercise at least 30 min three times per week Last Documented On 0 4:06PM ; [facility] Discussed Gardasil vaccinati on and recommend vaccination for HPV prevention. Handout given. Patient undertsands sexual transmission of high-risk HPV and association with abnormal pap smear and cervical cancer. recommend to decrease high risk behaviors such as: number of sexual partners, smoking, and contraceptive use Last Documented On 0 4:06PM ; [facility] Recommend preventative vacci nation including but not limited to influenza/flu vaccine, DTP, Rubella, Hepatitis B vaccination series Last Documented On 0 4:06PM ; [facility] Recommend annual pap smear e xamination or every three year if high risk hpv negative and 3 consecutive normal pap examination during preceding three years Last Documented On 0 4:06PM ; [facility] Recommend TSH, fasting gluco se, fasting lipid panel, CBC, BMP Last Documented On 0 4:06PM ; [facility] Recommend Calcium supplement ation and weight bearing exercise Last Documented On 0 4:06PM ; [facility] Recommended Bone Density Last Documented On 0 4:06PM ; [facility] Recommended Colonoscopy Pt r eferred to Gastroenetrologist. Pt understands that recommendation for colonoscopy is every 10 years after the age of 50 or age of 40 if first degree relative with history of colon cancer. Patient understands that failure to follow recommendation can lead to delayed diagnosis of colon cancer and patient accepts all responsibility regarding scheduling and follow up with data center operator Last Documented On 0 4:06PM ; [facility] Assessments Includes: Assessments for all patient encounters Findings Encounter Date Asymptomatic postmenopausal status ANNUA L ELECTRICIAN RESEARCH EXAM with ARMINDA KEITH M.D. 09/03/2011 Last Documented On 1 9:47AM ; [facility] MAMMOGRAM SCREENING ANNUAL ELECTRICIAN RESEARCH EXAM with ARMINDA KEITH M.D. 09/03/2011 Last Documented On 1 9:47AM ; [facility] NORMAL FEMALE EXAM ANNUAL ELECTRICIAN RESEARCH EXAM with ARMINDA KEITH M.D. 09/03/2011 Last Documented On 1 9:47AM ; [facility] Screening Malig. Neoplasm Rectum ANNUAL ELECTRICIAN RESEARCH EXAM with ARMINDA KEITH M.D. 09/03/2011 Last Documented On 1 9:47AM ; [facility] Abnormal Pap Smear ENDOMETRIAL BIOPSY with BARRETT KEITH M.D. 09/16/2010 Last Documented On 1 3:39PM ; [facility] Asymptomatic postmenopausal status NEW G YN EXAM with ARMINDA KEITH M.D. 08/28/2010 Last Documented On 0 4:19PM ; [facility] MAMMOGRAM SCREENING NEW FIELD CANE SCALER EXAM with ARMINDA KEITH M.D. 08/28/2010 Last Documented On 0 4:19PM ; [facility] NORMAL FEMALE EXAM NEW FIELD CANE SCALER EXAM with ARMINDA LOZADA M.D. 08/28/2010 Last Documented On 0 4:19PM ; [facility] Screening Malig. Neoplasm Rectum NEW FIELD CANE SCALER EXAM wi th ARMINDA KEITH M.D. 08/28/2010 Last Documented On 0 4:19PM ; [facility] Instructions Includes: Instructions for all patient encounters Instructions to patient Instructions for patient : B reast Self Exam discussed. Reviewed monthly self breast examination and technique Last Documented On 1 9:45AM ; [facility] Recommend diet and exercise at least 30 min three times per week Last Documented On 1 9:45AM ; [facility] Discussed Gardasil vaccinati on and recommend vaccination for HPV prevention. Handout given. Patient undertsands sexual transmission of high-risk HPV and association with abnormal pap smear and cervical cancer. recommend to decrease high risk behaviors such as: number of sexual partners, smoking, and contraceptive use Last Documented On 1 9:45AM ; [facility] Recommend preventative vacci nation including but not limited to influenza/flu vaccine, DTP, Rubella, Hepatitis B vaccination series Last Documented On 1 9:45AM ; [facility] Recommend annual pap smear e xamination or every three year if high risk hpv negative and 3 consecutive normal pap examination during preceding three years Last Documented On 1 9:45AM ; [facility] Recommend TSH, fasting gluco se, fasting lipid panel, CBC, BMP Last Documented On 1 9:45AM ; [facility] Recommend Calcium supplement ation and weight bearing exercise Last Documented On 1 9:45AM ; [facility] Recommended Bone Density Last Documented On 1 9:45AM ; [facility] Recommended Colonoscopy Pt r eferred to Gastroenetrologist. Pt understands that recommendation for colonoscopy is every 10 years after the age of 50 or age of 40 if first degree relative with history of colon cancer. Patient understands that failure to follow recommendation can lead to delayed diagnosis of colon cancer and patient accepts all responsibility regarding scheduling and follow up with data center operator Last Documented On 1 9:45AM ; [facility] Instructions for patient : B reast Self Exam discussed. Reviewed monthly self breast examination and technique Last Documented On 0 4:06PM ; [facility] Recommend diet and exercise at least 30 min three times per week Last Documented On 0 4:06PM ; [facility] Discussed Gardasil vaccinati on and recommend vaccination for HPV prevention. Handout given. Patient undertsands sexual transmission of high-risk HPV and association with abnormal pap smear and cervical cancer. recommend to decrease high risk behaviors such as: number of sexual partners, smoking, and contraceptive use Last Documented On 0 4:06PM ; [facility] Recommend preventative vacci nation including but not limited to influenza/flu vaccine, DTP, Rubella, Hepatitis B vaccination series Last Documented On 0 4:06PM ; [facility] Recommend annual pap smear e xamination or every three year if high risk hpv negative and 3 consecutive normal pap examination during preceding three years Last Documented On 0 4:06PM ; [facility] Recommend TSH, fasting gluco se, fasting lipid panel, CBC, BMP Last Documented On 0 4:06PM ; [facility] Recommend Calcium supplement ation and weight bearing exercise Last Documented On 0 4:06PM ; [facility] Recommended Bone Density Last Documented On 0 4:06PM ; [facility] Recommended Colonoscopy Pt r eferred to Gastroenetrologist. Pt understands that recommendation for colonoscopy is every 10 years after the age of 50 or age of 40 if first degree relative with history of colon cancer. Patient understands that failure to follow recommendation can lead to delayed diagnosis of colon cancer and patient accepts all responsibility regarding scheduling and follow up with data center operator Last Documented On 0 4:06PM ; [facility] Medical Equipment - Implanted Devices Includes: Current and historical Devices No Medical Equipment Recorded Medications Includes: Current and historical Medications Current Medications (continue as prescribed) Fish Oil 1000 MG OR CAPS 09/03/2011 Provider: Diagnosis: Last Documented On 1 9:09AM By EDDA XIAO MA ; [facility] Vitamin C 500 MG OR CHEW 09/03/2011 Provider: Diagnosis: Last Documented On 1 9:09AM By EDDA XIAO MA ; [facility] Calcium-Vitamin D 600-200 MG-UNIT OR CAPS 09/03/2011 Provider: Diagnosis: Last Documented On 1 9:08AM By EDDA XIAO MA ; [facility] Melatonin 3 MG OR CAPS 09/03/2011 Provider: Diagnosis: Last Documented On 1 9:07AM By EDDA XIAO MA ; [facility] Ambien 10 MG OR TABS 09/03/2011 Provider: Diagnosis: Last Documented On 1 9:06AM By EDDA XIAO MA ; [facility] Aleve 220 MG OR CAPS 09/03/2011 Provider: Diagnosis: Last Documented On 1 9:06AM By EDDA XIAO MA ; [facility] Aspir-Low 81 MG OR TBEC 09/03/2011 Provider: Diagnosis: Last Documented On 1 9:05AM By EDDA XIAO MA ; [facility] Doxycycline Hyclate 50 MG OR CAPS 08/04/2011 Provide r: TORSTEN CROOK MD Diagnosis: Last Documented On 1 9:05AM By EDDA XIAO MA ; [facility] Simvastatin 40 MG OR TABS 08/02/2011 Provider: Diagnosis: Last Documented On 1 9:05AM By EDDA XIAO MA ; [facility] Indapamide 1.25 MG OR TABS 08/02/2011 Provider: Diagnosis: Last Documented On 1 9:05AM By EDDA XIAO MA ; [facility] amLODIPine Besylate 5 MG OR TABS 07/08/2011 Provider : Diagnosis: Last Documented On 1 9:05AM By EDDA XIAO MA ; [facility] metroNIDAZOLE 0.75% EX CREA 05/14/2011 Provider: TORSTEN CROOK MD Diagnosis: Last Documented On 1 9:05AM By EDDA XIAO MA ; [facility] Simvastatin 40 MG OR TABS 08/28/2010 Provider: Diagnosis: Last Documented On 0 3:46PM By EDDA XIAO MA ; [facility] Cozaar 100 MG OR TABS 08/28/2010 Provider: Diagnosis: Last Documented On 0 3:45PM By EDDA XIAO MA ; [facility] Indapamide 1.25 MG OR TABS 08/28/2010 Provider: Diagnosis: Last Documented On 0 3:45PM By EDDA XIAO MA ; [facility] Past Medications on file miSOPROStol 200 MCG OR TABS 09/05/2010 - 09/07/2010 Provider: ARMINDA KEITH M.D. Diagnosis: Abn Glandular Pa p Smear Take one po at 8 am and 8 pm on the day prior to procedure Last Documented On 0 8:55AM By DR. ARMINDA KEITH ; [facility] Medications Administered Includes: Administered Medications in patient's chart No Administered Medications Recorded Results Includes: Results from 10/04/2023 through 10/04/2024 No Results Recorded For Specified Dates History of Present Illness History of Present Illness not supported for this document type No History of Present Illness Recorded Social History Description Last Updated Age of 1st intercourse was was 21 2009 Last Documented On 0 4:19PM ; [facility] In monogamous relationship 08/28/2010 Last Documented On 0 4:19PM ; [facility] Non-smoker 08/28/2010 Last Documented On 0 4:19PM ; [facility] Not using alcohol 08/28/2010 Last Documented On 0 4:19PM ; [facility] Not using drugs 08/28/2010 Last Documented On 0 4:19PM ; [facility] Sexually active 08/28/2010 Last Documented On 0 4:19PM ; [facility] Sexually active with 1 partners in the l ast year 08/28/2010 Last Documented On 0 4:19PM ; [facility] Smoking Status Unknown Procedures and Surgical History Surgical History Last Updated Tonsillectomy 09/03/2011 Last Documented On 1 9:47AM ; [facility] Dilation + Curettage 08/28/2010 Last Documented On 0 4:19PM ; [facility] History of cholecystectomy 08/28/2010 Last Documented On 0 4:19PM ; [facility] No Bilateral salpingo-oophorectomy 08/28 Last Documented On 0 4:19PM ; [facility] No Breast Biopsy 08/28/2010 Last Documented On 0 4:19PM ; [facility] No Ectopic surgery 08/28/2010 Last Documented On 0 4:19PM ; [facility] No Endometrial Ablation 08/28/2010 Last Documented On 0 4:19PM ; [facility] No history of appendectomy 08/28/2010 Last Documented On 0 4:19PM ; [facility] No history of Loop electrode excision of cervix (LEEP) 08/28/2010 Last Documented On 0 4:19PM ; [facility] No history of total abdominal hysterecto my 08/28/2010 Last Documented On 0 4:19PM ; [facility] No history of vaginal hysterectomy 08/28 Last Documented On 0 4:19PM ; [facility] No Laparoscopic Hysterectomy 08/28/2010 Last Documented On 0 4:19PM ; [facility] No Ovarian Cystectomy 08/28/2010 Last Documented On 0 4:19PM ; [facility] Previous colposcopy 08/28/2010 Last Documented On 0 4:19PM ; [facility] History of tubal ligation 08/28/2010 Last Documented On 0 4:19PM ; [facility] Medical History Includes: Medical History in patient's chart Description Last Updated Last mammogram date: 05/04/2011 1 Last Documented On 1 9:47AM ; [facility] Last pap smear date 09/03/2010 1 Last Documented On 1 9:47AM ; [facility] Result: abnormal 09/16/2010 Last Documented On 1 3:39PM ; [facility] Vaginal delivery 08/28/2010 Last Documented On 0 4:19PM ; [facility] History of benign essential hypertension 08/28/2010 Last Documented On 0 4:19PM ; [facility] History of hyperlipidemia 08/28/2010 Last Documented On 0 4:19PM ; [facility] A colonoscopy was performed 08/28/2010 Last Documented On 0 4:19PM ; [facility] 2 08/28/2010 Last Documented On 0 4:19PM ; [facility] LMP: 2004 08/28/2010 Last Documented On 0 4:19PM ; [facility] Para 2 08/28/2010 Last Documented On 0 4:19PM ; [facility] Patient recently had a dexa scan 010 Last Documented On 0 4:19PM ; [facility] Family History Includes: Family History in patient's chart Description Last Updated Spouse name: [place] 08/28/2010 Last Documented On 0 4:19PM ; [facility] Family history of hypertension 0 Last Documented On 0 4:19PM ; [facility] Family history of malignant female breas t neoplasm 08/28/2010 Last Documented On 0 4:19PM ; [facility] No family history of diabetes mellitus 1 10/29/2009 Last Documented On 0 4:19PM ; [facility] No family history of hypercholesterolemi a 08/28/2010 Last Documented On 0 4:19PM ; [facility] No family history of malignant neoplasm of the large intestine 08/28/2010 Last Documented On 0 4:19PM ; [facility] No family history of malignant neoplasm of the ovary 08/28/2010 Last Documented On 0 4:19PM ; [facility] No family history of uterine cancer 08/08 Last Documented On 0 4:19PM ; [facility] No heart disease 08/28/2010 Last Documented On 0 4:19PM ; [facility] Review of Systems Review of Systems not supported for this document type No Review of Systems Recorded Mental Status Description Oriented to time, place, and person A desire to continue living Functional Status No Functional Status Recorded Physical Exam Physical Exam not supported for this document type No Physical Exam Recorded Immunizations Includes: Immunizations in patient's chart Vaccine Dose # Date Site Reaction(s) Status Source DTaP 1 Complete (Reported) Cally ent Last Documented On 0 4:04PM ; [facility] Influenza (Quadrivalent)36 m o.& older PF 0.5ml (SD) 1 Complete (Reported) Patient Last Documented On 0 4:04PM ; [facility] Td 1 Complete (Reported) Cally ent Last Documented On 0 4:04PM ; [facility] Allergies Includes: Active, inactive, and resolved Allergies No Known Allergies Clinical Notes Includes: Signed Clinical Notes starting from 09/26/2022 No Clinical Notes Recorded
--- OUTSIDE RECORDS SUMMARY | 2024-10-04 09:05 | XMS_ITS | Data Portability ---
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 She is now 15 days out from left total knee arthroplasty. Overall she feels she is doing very well. Pain is very tolerable. She is starting to wean down off of the narcotics. She is doing outpatient therapy At our [place] office. Physical exam: Patient's incision is well healed. minimal swelling in the knee. No swelling in either lower extremity. She has ecchymosis in the calf as well as the thigh. Range of motion is from 2-115 degrees. Impression: Patient is doing well 15 days out left total arthroplasty. She took her last Eliquis this morning and will now transition of the baby aspirin twice a day. She remains on Celebrex daily and is tolerating this well. Again she is weaning off of the narcotics but is taking Tylenol regularly. Overall she is doing well. We will see her back in 2 weeks for re-evaluation. Not available 11/06/2022 11:37:49 11/20/2022 11/20/2022 HPI: Patient returns. She is a month out from left total knee arthroplasty. She continues do very well. She is having minimal discomfort in the knee. She will use occasional Tylenol. She is taking baby aspirin twice a day as well as the Celebrex. Physical exam: Patient's incisions well healed. Range motion is from 0-130 degrees today. She is walking very well without assistance or limp. There is no increased swelling in either lower extremity. Impression: Patient is doing well 1 month out left total knee arthroplasty. She will continue the baby aspirin for the next 2 weeks. Her bones were a little soft at the time surgery aware going to order a bone density at this point. We will see her back in 2 weeks with x-rays of the knee at that time. Not available 11/20/2022 12:53:32 12/04/2022 12/04/2022 HPI: Patient returns. She is 6 weeks out from left total knee arthroplasty. She is doing very well. She is very happy with her knee replacement. She is having no real symptoms in leg for the knee. Physical exam: 72-year-old female she is walking well today. Incisions well healed. She has 2 sutures pits noted that were very benign. Range of motion is from 0-135 degrees. Excellent stability in both flexion extension. No swelling in either lower extremity. Impression: Patient is doing very well 6 weeks out left total knee arthroplasty. She can stop the baby aspirin at this point resume any medications at we stopped prior surgery. Long-term risk of infection was discussed. This point plan on seeing her back at her 1 year anniversary or sooner if she has problems. Not available 12/04/2022 11:32:17 10/22/2023 10/22/2023 Impression: Patient has done well following her left total knee arthroplasty. She still has there are problems with numbness and weakness in the lower extremities due to her severe peripheral neuropathy with indeterminate etiology. I did point out to her that she has less motion today than she did at 6 weeks. She has not been doing daily stretching exercises I would recommend she do that. Specifically I would recommend that she do the chair flexion stretch for a few minutes every day think she should be able to regain her flexion without too much difficulty. I recommended that she have routine radiographic surveillance x-rays in 5 years I am happy to see her at that time. If she has any problems in the meantime she will call. 20 minutes were spent total care this patient more than half the time spent in dlvy-di-gzlw care. [email or web address] Not available 10/24/2023 13:13:24 Plan of Treatment Reminders Order Date Submit Date Provider Last Modified By Organization Details Last Modified Time Details Appointments None record ed. Lab None record ed. Referral None record ed. Procedures None record ed. Surgeries None record ed. Imaging XR, knee 023 12/05/19 23 [email or web address] s_gmg [facility], [address], [place], [address], 3 13:34:52 XR, knee 024 10/22/19 24 [email or web address] s_gmg [facility], [address] [place] [address], [place], [address], 4 12:29:27 Medication Orders None record ed. Patient TargetsNo targets recorded. Patient InstructionsNo instructions recorded. Reason for Referral None Reported. Results Created Date Observation Date Name Description Value Unit Range Abnormal Flag Note LastModifiedBy Organization Detail LastModifiedTime 08/28/20 22 XR, pelvi s No observ ation record ed. [id number] Z_hrgmc_g[facility] [address], [place], [address], 11/05/2022 10:47:53 08/28/20 22 XR, knee No observ ation record ed. [id number] [facility]gmc_g[facility] [address], [place], [address], 11/05/2022 10:47:53 10/15/19 23 10/06/2022 katie millard am No observ ation record ed. [id number] Not Available 11/05/2022 10:47:53 10/22/19 23 10/22/2022 XR, knee No observ ation record ed. [id number], [place], [address], 11/05/2022 10:47:53 11/25/19 23 11/24/2022 DEXA, axial skele ton [facility] [address], [place] [address] Patien t Name: TONY ZHENG Access ion #: [id number] Sex: F : 1950 8 Locati on: RAD Attend ing Physic aman: [facility]NA[facility] L[address] Orderi ng Physic aman: ANA[address] LANE Exam Date: 023 11:45 AM Exam Name: XR DEXA-H IPS PELVIS SPINE Admitt ing Diagno sis(es ): RADIOL OGY REPORT - FINAL EXAM: XR DEXA-H IPS PELVIS SPINE HISTOR Y: OSTEOP OROSIS COMPAR CLAUDIO: None. TECHNI QUE: TECHNI QUE: Dual energy x-ray of absorp tion examin ation of the left hip and left radius in AP projec tion was perfor med. FINDIN GS: Left hip: The mean bone minera l densit y is 0.921 g/cm2 hydrox yapati te, correl ating with a T-scor e of -0.7. Left radius the mean bone minera l densit y is 0.959 g/cm2 calciu m hydrox yapati te, correl ating with a T-scor e of 0.8. Page 1 of 2 [facility] Radha gonzalez Name: TONY ZHENG Access ion #: [id number] Sex: F : 1950 8 Exam Date: 023 11:45 AM Exam Name: XR DEXA-H IPS PELVIS SPINE Admitt ing Diagno sis(es ): IMPRES LIZET: 1. The patien t's left radius T-scor e is consis tent with a normal bone densit y. 2. The patien t's left hip T-scor e is consis tent with a normal bone densit y. Accord ing to the World Health Organi zation , T-scor e values greate r than -1.0 are normal , values betwee n -1.0 and -2.5 are catego rized as osteop enia, T-scor e of -2.5 or more are catego rized as osteop orosis . Create d and electr onical ly signed by: Pipo garcia MD Signed Date: 2:35 PM (CT) Dictat ed by: Pipo garcia MD DD: 023 2:35 PM (CT) DT: 023 2:35 PM (CT) Page 2 of 2 [facility] (Imaging) [address], [place], [address], 11/25/2022 12:18:15 12/05/19 23 XR, knee No observ ation record ed. s_gmg [address], [place], [address], 12/04/2022 11:31:05 10/22/19 24 XR, knee No observ ation record ed. [email or web address] s_gmg [address], [place], [address], 10/24/2023 13:12:09 Result Notes None recorded. Problems Name Problem SNOMED Code Status Onset Date Resolution Date Notes Provider Name and Address Organization Details Recorded Time Bilateral foot drop 0417499493446 9103 Active 2021 Not Available [facility] 3 11:45:48 Radiothera py follow-up 764211252 Active Not Available [facility] 3 11:45:48 Unable to cut own toenails 649650813 Active 2021 Not Available [facility] 3 11:45:48 Neuropathy 354648998 Active 2021 Not Available [facility] 3 11:45:48 Osteoarthr itis 219396373 Active Not Available [facility] 3 11:45:48 Pain of left knee joint 1902310370112 07 Active 2021 Not Available [facility] 3 11:45:48 Dystrophia unguium 41402313 Active 2021 Not Available [facility] 3 11:45:48 Osteoarthr itis of left knee joint 7002533784433 09 Active 2022 Not Available [facility] 11:45:48 Problem Notes None recorded. Procedures Surgical History Date Name Laterality Status Provider Name and Address Organization Details Recorded Time Knee Surgery completed Not Available [facility] 11/05/2022 10:41:35 Tubal Ligation completed Not Available [facility] 11/05/2022 10:41:35 procedure on gallbladder completed Not Available [facility] 11/05/2022 10:41:35 parathyroidectomy completed Not Available [facility] 11/05/2022 10:41:35 operation on vagina completed Not Available [facility] 11/05/2022 10:41:35 decompression of lumbar spine completed Not Available [facility] 11/05/2022 10:41:35 Imaging Results Imaging Date Name Status LastModified by Organization Details LastModified Time 08/28/2022 XR, pelvis completed [id number] [facility] [address], [address], 11/05/2022 10:47:53 08/28/2022 XR, knee completed [id number] [facility] [address], [place], [address], 11/05/2022 10:47:53 10/06/2022 electrocardiogram completed [id number] Information not available 11/05/2022 10:47:53 10/22/2022 XR, knee completed [id number] [facility] [address], [place], [address], 11/05/2022 10:47:53 11/24/2022 DEXA, axial skeleton completed [facility] (Imaging) [address], [place], [address], 11/25/2022 12:18:15 12/04/2022 XR, knee completed [facility] [address], [place], [address], 12/04/2022 11:31:05 10/22/2023 XR, knee completed [email or web address] [facility] [address], [place], [address], 10/24/2023 13:12:09 Procedure Notes None recorded. Medical Equipment None Reported. Allergies Allergen ID Allergen Name Allergen Category Reaction Reaction Severity Criticality Documentation Date Start Date Code Code System Note Provider Name and Address Organization Details Recorded Time 56479 watermelo n preparati on food Not available Not available Not available 11/05/2022 39189 4 RxNorm Not Available [facility] 3 10:47:35 72287 spironola ctone medicatio n Not available Not available Not available 11/05/2022 9997 RxNorm Not Available [facility] 3 10:47:35 50811 omega-3 acid ethyl esters (LONG TERM) medicatio n Not available Not available Not available 11/05/2022 97332 8 RxNorm Not Available [facility] 3 10:47:35 51233 nickel environme nt Not available Not available Not available 11/05/2022 24441 29 RxNorm Not Available [facility] 3 10:47:35 53176 Mucinex medicatio n Not available Not available Not available 11/05/2022 83094 7 RxNorm Not Available [facility] 3 10:47:35 00223 lisinopri l medicatio n cough Not available Not available 11/05/2022 45306 RxNorm Not Available [facility] 3 10:47:35 96182 erythrito l Not available Not available Not available Not available 11/05/2022 01102 63 RxNorm Not Available [facility] 3 10:47:35 73719 amlodipin e medicatio n Not available Not available Not available 11/05/2022 02554 RxNorm Not Available [facility] 3 10:47:35 Medications Name Sig Start Date Stop Date Status Note LastModified by Organization Details LastModified Time celecoxib 200 mg capsule TAKE 1 CAPSULE BY MOUTH DAILY AT 8AM 10/22 completed Not Available Not Available Not Available amoxicillin 500 mg capsule TAKE 4 CAPSULES BY MOUTH 1 HOUR PRIOR TO DENTAL APPOINTME NT 11/20 completed Not Available Not Available Not Available fluconazole 150 mg tablet TAKE 1 TABLET BY MOUTH EVERY DAY FOR 5 DAYS 05/02 completed Not Available Not Available Not Available lisinopril 20 mg tablet 05/24 completed Not Available Not Available Not Available spironolact one 100 mg tablet 11/23 completed Not Available Not Available Not Available amlodipine 5 mg tablet 05/24 completed Not Available Not Available Not Available tramadol 50 mg tablet TAKE 1 TABLET BY MOUTH EVERY 4 TO 6 HOURS FOR 7 DAYS 08/28 completed Not Available Not Available Not Available acetaminoph en 500 mg tablet TAKE 2 TABLETS BY MOUTH EVERY 6 HOURS active Not Available Not Available No t Available triamcinolo ne acetonide 0.1 % topical cream APPLY TO ARMS AND LEGS TWICE A DAY FOR 30 DAYS 05/02 completed Not Available Not Available Not Available amoxicillin 500 mg tablet TAKE 4 TABLETS BY MOUTH 1 HOUR PRIOR TO DENTAL APPOINTME NT active Not Available Not Available No t Available simvastatin 40 mg tablet active Not Available Not Available Not Available aspirin 325 mg tablet,joanne yed release TAKE 1 TABLET BY MOUTH TWICE A DAY 05/02 completed Not Available Not Available Not Available hydrocodone 7.5 mg-acetamin ophen 325 mg tablet TAKE 1 TABLET BY MOUTH EVERY 4-6 HOURS NEEDED FOR 7 DAYS 11/21 completed Not Available Not Available Not Available clotrimazol e-betametha sone 1 %-0.05 % topical cream APPLY TO AFFECTED AREA TWICE A DAY 05/02 completed Not Available Not Available Not Available indapamide 1.25 mg tablet 10/22 completed Not Available Not Available Not Available hydrocortis one 2.5 % topical cream APPLY A THIN LAYER TO THE AFFECTED AREA TOPICALLY QHS FOR 30 DAYS 05/02 completed Not Available Not Available Not Available ergocalcife rol (vitamin D2) 1,250 mcg (50,000 unit) capsule active Not Available Not Available Not Available Hibiclens 4 % topical liquid PLEASE SEE ATTACHED FOR DETAILED DIRECTION S 11/20 completed Not Available Not Available Not Available amoxicillin 500 mg-potassiu m clavulanate 125 mg tablet TAKE 1 TABLET BY MOUTH THREE TIMES A DAY FOR 1 WEEK 10/22 completed Not Available Not Available Not Available oxycodone 5 mg tablet TAKE 1 TABLET BY MOUTH EVERY 4 HOURS NEEDED FOR PAIN 10/22 completed Not Available Not Available Not Available neomycin 3.5 mg/g-polymy jeremiah B 10,000 unit/g-dexa meth 0.1 % eye oint APPLY TO RIGHT EYELID TWICE A DAY FOR 7 DAYS active Not Available Not Available No t Available olmesartan 20 mg tablet TAKE 1 TABLET BY MOUTH DAILY active Not Available Not Available No t Available valsartan 40 mg tablet 11/23 completed Not Available Not Available Not Available Vitamin C 2021 active Not Available Not Available Not Avai lable Aleve active Not Available Not Availa ble Not Available alpha lipoic acid 11/21 completed Not Available Not Available Not Available Senexon-S 8.6 mg-50 mg tablet TAKE 2 TABLETS BY MOUTH TWICE A DAY 10/22 completed Not Available Not Available Not Available [facility]o Bi-Flex 11/20 completed Not Available Not Available Not Available Eliquis 2.5 mg tablet TAKE 1 TABLET BY MOUTH EVERY 12 HOURS 11/20 completed Not Available Not Available Not Available potassium chloride ER 20 mEq tablet,exte nded release TAKE 1 TABLET BY MOUTH EVERY DAY 11/21 completed Not Available Not Available Not Available Soolantra 1 % topical cream 11/23 completed Not Available Not Available Not Available COVID-19 test specimen collection TEST DIRECTED TODAY 08/28 completed Not Available Not Available Not Available Vitals Date Recorded Body height Provider Name an d Address Organization Details Last Updated DateTime 08/28/2022 172.72 cm Not Available [facility] 10:43:54 Date Recorded Body height Provider Name an d Address Organization Details Last Updated DateTime 11/06/2022 172.72 cm YVES Guzman [facility] [employer] 11/06/2022 11:15:19 Date Recorded Body height Provider Name an d Address Organization Details Last Updated DateTime 11/20/2022 172.72 cm YVES Guzman [facility] [employer] [facility] 11/20/2022 11:58:47 Date Recorded Body height Provider Name an d Address Organization Details Last Updated DateTime 12/04/2022 172.72 cm YVES Guzman [place] [facility] [place] [employer] 12/04/2022 10:53:01 Date Recorded Body height Body mass index (BMI) Body weight Provider Name and Address Organization Details Last Updated DateTime 10/22/2023 170.18 cm 32.3 kg/m2 20219.03 g YVES Guzman [place] [facility] [employer] 10/22/2023 11:32:44 Social History Question Answer Notes LastModified by Organizat ion Details LastModified Time Tobacco Smoking Status Never Smoker Not Available [employer] 11/05/2022 10:41:21 What Is Your Level Of Alcohol Consumption? Occasional [id number] Information not available 11/05/2022 What Is Your Level Of Caffeine Consumption? Occasional [id number] Information not available 11/05/2022 What Was The Date Of Your Most Recent Tobacco Screening? 10/21/2021 [id number] Information not available 11/05/2022 Have You Ever Been Counseled For Unhealthy Alcohol Use? No [id number] 035 Information not available 11/05/2022 Do You Use Any Illicit Or Recreational Drugs? No [id number] 035 Information not available 11/05/2022 Has Tobacco Cessation Counseling Been Provided? No [id number] 035 Information not available 11/05/2022 Do You Or Have You Ever Used Any Other Forms Of Tobacco Or Nicotine? No [id number] 035 Information not available 11/05/2022 Sex: Unknown Functional Status None recorded. Mental Status None recorded. Family History Relationship Description Onset Age of this Age Resolved Age Notes LastModified by Organization Details LastModified Time Mother Heart disease [id number] Not available 11/05/2022 10:41:39 Mother Family history of malignant neoplasm [id number] Not available 11/05/2022 10:41:39 Father Family history of malignant neoplasm [id number] Not available 11/05/2022 10:41:39 Father Hypertensive disorder [id number] Not available 11/05/2022 10:41:39 Paternal Grandmother Family history of stroke [id number] Not available 11/05/2022 10:41:39 Paternal Grandmother Heart disease [id number].361 [id number] Not available 11/05/2022 10:41:39 Medical History Condition Response BLINDNESS N KIDNEY STONES N MRSA N CARPAL TUNNEL SYNDROME N LUNG DISEASE/DISORDER N HISTORY OF DRUG ABUSE N RADIATION / CHEMOTHERAPY N COPD N SPORTS INJURY N ANKLE PAIN N BLOOD DISEASES N SCHIZOPHRENIA N SHINGLES N BOWEL PROBLEMS N SHOULDER PAIN N DEPRESSION (INCLUDING POST ) N STROKE/TIA N KNEE PAIN N ULCERS N BENIGN PROSTATIC HYPERPLASIA N OBESITY Y GERD/NAUSEA N ANEURYSM N URINARY/BLADDER/KIDNEY PROBLEMS N CORONARY ARTERY DISEASE (CAD) N ADDICTION CONCERNS N USE OF BLOOD THINNERS N SKIN PROBLEMS Y EMPHYSEMA N MUSCLE,JOINT OR BONE PROBLEMS N DVT N STOMACH ULCERS N BLOOD CLOTS N USE OF NSAIDS N CONCUSSION OR SPINAL TRAUMA Y NEUROPATHY N AIDS/HIV N FRACTURES N ELBOW PAIN N HYPERTENSION Y TOURETTE'S N ANXIETY DISORDER N Metal allergy N BLOOD TRANSFUSION N ANEMIA/BLOOD DISORDER N BIPOLAR DISORDER N BRONCHITIS N OSTEOARTHRITIS N TUBERCULOSIS N FOOT PROBLEM N HEART VALVE DISORDERS N ALLERGIES/HAYFEVER Y SOFT TISSUE INJURY N INFECTIOUS DISEASE N HEART ARRHYTHMIA N INSOMNIA N RHEUMATOID ARTHRITIS N HIGH CHOLESTEROL / HYPERLIPIDEMIA Y EDEMA N CHRONIC PAIN SYNDROME N CAROTID BLOCKAGE N BACK / NECK PROBLEMS Y HAVE YOU BEEN HOSPITALIZED OR SEEN IN [facility] ER IN THE PAST YEAR ? N BURSITIS N HERNIATED DISC N DIALYSIS N FIBROMYALGIA N OSTEOPOROSIS N ARTHRITIS Y NO SIGNIFICANT PAST MEDICAL HISTORY N PERIPHERAL NEUROPATHY N DIABETES, TYPE N HEARTBURN / REFLUX N HEPATITIS / LIVER DISEASE N GOUT N SLEEP DISORDER N ALZHEIMER'S DISEASE N HERPES N SEIZURES/EPILEPSY N HEADACHES/MIGRAINES Y VASCULAR DISEASE N HIP PAIN N Blood Disorder N DIZZINESS N HEAD TRAUMA OR INJURY N HEART DISEASE/HEART PROBLEMS N MULTIPLE SCLEROSIS N CARDIAC ARRHYTHMIA N CANCER: SPECIFY N ANESTHESIA COMPLICATIONS N ATRIAL FIBRILLATION N AUTOIMMUNE DISEASE N Gynecological HistoryNo gynecological history recorded. Obstetrics History GPAL:G 0 P 0 0 0 0 Past Encounters Encounter ID Performer Location Encounter Start Date Encounter Closed Date Diagnosis/Indication Diagnosis SNOMED-CT Code Diagnosis ICD10 Code Diagnosis Note [id number] [facility] [address] [address] 04/25/2021 00:00:00 05/05/2021 20:23:20 [id number] [facility] [address] [address] 05/02/2021 00:00:00 05/18/2021 14:30:01 [id number] [facility] [address] [facility] [facility] [address] [place] [address] 10/21/2021 00:00:00 10/21/2021 13:13:14 [id number] [facility] [address] [place] [address] 11/21/2021 00:00:00 11/21/2021 17:04:01 [id number] [facility] [address] [facility] [facility] [address] [place] [address] 01/27/2022 00:00:00 01/27/2022 10:08:03 [id number] [facility] [address] [facility] [facility] [address] [place] [address] 04/28/2022 00:00:00 04/28/2022 10:13:52 [id number] [facility] [address] [place] [address] 08/28/2022 00:00:00 08/28/2022 16:39:59 [id number] IWONA Matias [facility] [address] [place] [address] 11/06/2022 11:13:13 11/06/2022 12:05:42 Osteoarthritis of left knee joint 7714049115 22808 M17.12 [id number] IWONA Matias [facility] [address] [place] [address] 11/20/2022 11:54:48 11/20/2022 12:58:24 Osteoarthritis of left knee joint 4129500929 39689 M17.12 [id number] IWONA Matias [facility] [address] [place] [address] 12/04/2022 10:50:10 12/04/2022 11:45:56 Osteoarthritis of left knee joint 8239276041 06092 M17.12 [id number] Anand Sims MD [facility] [address] [place] [address] 10/22/2023 10:43:17 10/26/2023 12:29:27 History of left total knee replacement 8148006446 054878 Z96.652 Health Concerns Section Related Observation LastModified by Organization Detai ls LastModified Time None Recorded Concern Status LastModified by Organization Details LastModified Time None Recorded Advance Directives Directive None Recorded Payers Encounter Date Sequence Insurance Name Policy Number Policy Hays Covered Member ID Hays Member ID Guarantor Name 11/06/2022 1 [place] Terri Zheng [id number] Terri Zheng 11/06/2022 2 [facility] 32 Em Zheng [id number] Terri Zheng 11/20/2022 1 [place] Terri Zheng [id number] Terri Zheng 11/20/2022 2 [facility] 32 Em Zheng [id number] Terri Zheng 12/04/2022 1 [place] Terri Zheng [id number] Terri Zheng 12/04/2022 2 [facility] 32 Em Zheng [id number] Terri Zheng 10/22/2023 1 [place] Terri Zheng [id number] Terri Zheng 10/22/2023 2 [facility] 32 Em Zheng [id number] Terri Zheng Notes Date Note Type Note Provider Name and Address Organization Details Recorded Time 10/22/2023 text/html Patient returns. She is now 1 year after her left total knee replacement. She feels that her left knee is doing very well. She still has underlying neurologic problems causing weakness in her lower extremities. 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 She feels that the knee replacement was very helpful though because it alleviated the pain left knee and she walks now 30 minutes per day for exercise. She notes a rare twinge of discomfort left knee. Anand Sims MD [address] [place] [address], [facility] [address], [place], [address], [place] [employer] 10/24/2023 13:13:39 OBGyn Episode No OBEpisode recorded.
--- OUTSIDE RECORDS SUMMARY | 2024-10-04 09:05 | XMS_ITS | Clinical Summary ---
Author Organization [facility] Address [address] [place] [address] Phone Care Team Providers Care Senior Quantity Surveyor Name Role Phone Unavailable Unavailable Unavailable Reason for Visit and Chief Complaint CHART UPDATE Problems Includes: Problems addressed during this encounter and other active Problems All Visits Onset Date Resolved Date Provider Condition S tatus HYPERLIPIDEMIA NEC/NOS 08/28/2010 BARRETT KEITH M.D. Active Last Documented On 0 3:46PM ; [facility] HYPERTENSION NOS 08/28/2010 ARMINDA KEITH M.D. Active Last Documented On 0 3:47PM ; [facility] Plan of Treatment - ABNORMAL PAP SMEAR - Last Documented On 09/05/2010 8:55AM ; [facility] Misoprostol 200 MCG TABS, as directed, 2 days, 0 refills, Take one po at 8 am and 8 pm on the day prior to procedure - Last Documented On 09/05/2010 8:55AM ; [facility] ? OTHERFollow-up PLEASE PHONE IN [facility] TO PHARMACY - Last Documented On 09/05/2010 8:55AM ; [facility] Assessments Includes: Assessments from this encounter No Assessments Recorded Medical Equipment - Implanted Devices Includes: Current Devices No Medical Equipment Recorded Medications Includes: Medications discussed during this encounter and other current Medications New / Renewed during this visit ARMINDA KEITH M.D. on 09/05/2010 miSOPROStol 200 MCG OR TABS Provider: ARMINDA KEITH M.D. 2 day supply: 2, 0 refills Diagnosis: Abn Glandular Pap Smear Take one po at 8 am and 8 pm on the day prior to procedure Last Documented On 0 8:55AM By DR. ARMINDA KEITH ; [facility] Current Medications (continue as prescribed) Fish Oil 1000 MG OR CAPS 09/03/2011 Provider: Diagnosis: Last Documented On 1 9:09AM By EDDA XIAO MA ; [facility]S Vitamin C 500 MG OR CHEW 09/03/2011 Provider: Diagnosis: Last Documented On 1 9:09AM By EDDA XIAO MA ; [facility] Calcium-Vitamin D 600-200 MG-UNIT OR CAPS 09/03/2011 Provider: Diagnosis: Last Documented On 1 9:08AM By EDDA XIAO MA ; [facility] Melatonin 3 MG OR CAPS 09/03/2011 Provider: Diagnosis: Last Documented On 1 9:07AM By EDDA XIAO MA ; [facility] Ambien 10 MG OR TABS 09/03/2011 Provider: Diagnosis: Last Documented On 1 9:06AM By EDDA XIAO MA ; [facility] Aleve 220 MG OR CAPS 09/03/2011 Provider: Diagnosis: Last Documented On 1 9:06AM By EDDA XIAO MA ; [facility] Aspir-Low 81 MG OR TBEC 09/03/2011 Provider: Diagnosis: Last Documented On 1 9:05AM By EDDA XIAO MA ; [facility] Doxycycline Hyclate 50 MG OR CAPS 08/04/2011 Provide r: TORSTEN CROOK MD Diagnosis: Last Documented On 1 9:05AM By EDDA XIAO MA ; [facility] Simvastatin 40 MG OR TABS 08/02/2011 Provider: Diagnosis: Last Documented On 1 9:05AM By EDDA XIAO MA ; [facility] Indapamide 1.25 MG OR TABS 08/02/2011 Provider: Diagnosis: Last Documented On 1 9:05AM By EDDA XIAO MA ; [facility] amLODIPine Besylate 5 MG OR TABS 07/08/2011 Provider : Diagnosis: Last Documented On 1 9:05AM By EDDA XIAO MA ; [facility] metroNIDAZOLE 0.75% EX CREA 05/14/2011 Provider: TORSTEN CROOK MD Diagnosis: Last Documented On 1 9:05AM By EDDA XIAO MA ; [facility] Simvastatin 40 MG OR TABS 08/28/2010 Provider: Diagnosis: Last Documented On 0 3:46PM By EDDA XIAO MA ; [facility] Cozaar 100 MG OR TABS 08/28/2010 Provider: Diagnosis: Last Documented On 0 3:45PM By EDDA XIAO MA ; [facility] Indapamide 1.25 MG OR TABS 08/28/2010 Provider: Diagnosis: Last Documented On 0 3:45PM By EDDA XIAO MA ; [facility] Medications Administered Includes: Administered Medications from this encounter No Administered Medications Recorded Results Includes: Results discussed during this encounter No Results Recorded For Specified Dates History of Present Illness Includes: History of Present Illness from this encounter No History of Present Illness Recorded Social History Description Last Updated Age of 1st intercourse was was 21 2009 Last Documented On 0 8:55AM ; [facility] In monogamous relationship 08/28/2010 Last Documented On 0 8:55AM ; [facility] Non-smoker 08/28/2010 Last Documented On 0 8:55AM ; [facility] Not using alcohol 08/28/2010 Last Documented On 0 8:55AM ; [facility] Not using drugs 08/28/2010 Last Documented On 0 8:55AM ; [facility] Sexually active 08/28/2010 Last Documented On 0 8:55AM ; [facility] Sexually active with 1 partners in the l ast year 08/28/2010 Last Documented On 0 8:55AM ; [facility] Smoking Status Unknown Procedures and Surgical History Surgical History Last Updated No Tonsillectomy 09/03/2011 Last Documented On 0 8:55AM ; [facility] Dilation + Curettage 08/28/2010 Last Documented On 0 8:55AM ; [facility] History of cholecystectomy 08/28/2010 Last Documented On 0 8:55AM ; [facility] No Bilateral salpingo-oophorectomy 08/28 Last Documented On 0 8:55AM ; [facility] No Breast Biopsy 08/28/2010 Last Documented On 0 8:55AM ; [facility] No Ectopic surgery 08/28/2010 Last Documented On 0 8:55AM ; [facility] No Endometrial Ablation 08/28/2010 Last Documented On 0 8:55AM ; [facility] No history of appendectomy 08/28/2010 Last Documented On 0 8:55AM ; [facility] No history of Loop electrode excision of cervix (LEEP) 08/28/2010 Last Documented On 0 8:55AM ; [facility] No history of total abdominal hysterecto my 08/28/2010 Last Documented On 0 8:55AM ; [facility] No history of vaginal hysterectomy 08/28 Last Documented On 0 8:55AM ; [facility] No Laparoscopic Hysterectomy 08/28/2010 Last Documented On 0 8:55AM ; [facility] No Ovarian Cystectomy 08/28/2010 Last Documented On 0 8:55AM ; [facility] Previous colposcopy 08/28/2010 Last Documented On 0 8:55AM ; [facility] History of tubal ligation 08/28/2010 Last Documented On 0 8:55AM ; [facility] Medical History Includes: Medical History addressed during this encounter Description Last Updated Last mammogram date: 200809/03/2011 Last Documented On 0 8:55AM ; [facility] Vaginal delivery 08/28/2010 Last Documented On 0 8:55AM ; [facility] History of benign essential hypertension 08/28/2010 Last Documented On 0 8:55AM ; [facility] History of hyperlipidemia 08/28/2010 Last Documented On 0 8:55AM ; [facility] A colonoscopy was performed 08/28/2010 Last Documented On 0 8:55AM ; [facility] 2 08/28/2010 Last Documented On 0 8:55AM ; [facility] LMP: 2004 08/28/2010 Last Documented On 0 8:55AM ; [facility] Para 2 08/28/2010 Last Documented On 0 8:55AM ; [facility] Patient recently had a dexa scan 010 Last Documented On 0 8:55AM ; [facility] Family History Includes: Family History addressed during this encounter Description Last Updated Spouse name: [place] 08/28/2010 Last Documented On 0 8:55AM ; [facility] Family history of hypertension 0 Last Documented On 0 8:55AM ; [facility] Family history of malignant female breas t neoplasm 08/28/2010 Last Documented On 0 8:55AM ; [facility] No family history of diabetes mellitus 1 10/29/2009 Last Documented On 0 8:55AM ; [facility] No family history of hypercholesterolemi a 08/28/2010 Last Documented On 0 8:55AM ; [facility] No family history of malignant neoplasm of the large intestine 08/28/2010 Last Documented On 0 8:55AM ; [facility] No family history of malignant neoplasm of the ovary 08/28/2010 Last Documented On 0 8:55AM ; [facility] No family history of uterine cancer 08/08 Last Documented On 0 8:55AM ; [facility] No heart disease 08/28/2010 Last Documented On 0 8:55AM ; [facility] Review of Systems Includes: Review of Systems from this encounter No Review of Systems Recorded Mental Status Includes: Mental Status from this encounter No Mental Status Recorded Functional Status Includes: Functional Status from this encounter No Functional Status Recorded Physical Exam Includes: Physical Exam from this encounter No Physical Exam Recorded Allergies Includes: Active Allergies No Known Allergies Encounters Encounter Provider Location Date Check-In Time Check-Out Time Diagnosis CHART UPDATE ARMINDA KEITH M.D. 09/05/2010 8:53AM 11:59PM Clinical Notes Includes: Clinical Notes from this encounter No Clinical Notes Recorded
--- OUTSIDE RECORDS SUMMARY | 2024-10-04 09:05 | XMS_ITS | Clinical Summary ---
Author Organization [facility] Address [address] [place] [address] Phone Care Team Providers Care Technical Assoc Name Role Phone Unavailable Unavailable Unavailable Reason for Visit and Chief Complaint gynecologic annual exam - The Chief Complaint is: WWE Problems Includes: Problems addressed during this encounter and other active Problems Current Visit Onset Date Resolved Date Provider Ebony walden Status HYPERLIPIDEMIA NEC/NOS 08/28/2010 BARRETT KEITH M.D. Active Last Documented On 0 3:46PM ; [facility] HYPERTENSION NOS 08/28/2010 ARMINDA KEITH M.D. Active Last Documented On 0 3:47PM ; [facility] Plan of Treatment - OTHER - Last Documented On 08/28/2010 4:19PM ; [facility] Follow-up 1 yr - Last Documented On 08/28/2010 4:19PM ; [facility] ? ROUTINE CLINICAL LAB ASSISTANT EXAMINATIONLab: SUREPATH RFX HPV - Last Documented On 08/28/2010 4:19PM ; [facility] ? SCREEN MAMMOGRAM NECRadiology/*MAMMOGRAM: Mammogram - Last Documented On 08/28/2010 4:19PM ; [facility] ? Cervical Pap SmearIn office procedures/*Clia Waived Labs: Pap Smear Taken - Last Documented On 08/28/2010 4:19PM ; [facility] ? SCREEN MAL NEOP-RECTUMIn office procedures/*Clia Waived Labs: *FIT Test (Fecal Occult Test) - Last Documented On 08/28/2010 4:19PM ; [facility] Pending Tests Order Diagnosis Results Due Ordering P rovider Radiology @ other - *MAMMOGRAPHY Mammogram SCREEN MAMMOGRAM NEC 09/11/10 ARMINDA LOZADA M.D. Last Documented On 0 4:18PM ; [facility] In office procedures - *Clia Waived Labs *FIT Test (Fecal Occult Test) SCREEN MAL NEOP-RECTUM 09/11/10 ARMINDA KEITH M.D. Last Documented On 0 4:18PM ; [facility] In office procedures - *Clia Waived Labs Pap Smear Taken SCREEN MAL NEOP-CERVIX 09/11/10 ARMINDA KEITH M.D. Last Documented On 0 4:18PM ; [facility] Lab SUREPATH PAP RFX HR HPV 09/27/10 S SHIRA KEITH M.D. Last Documented On 0 3:38PM ; [facility] Instructions to patient Instructions for patient : B reast Self Exam discussed. Reviewed monthly self breast examination and technique Last Documented On 0 4:06PM ; [facility] Recommend diet and exercise at least 30 min three times per week Last Documented On 0 4:06PM ; [facility] Discussed Gardasil vaccinati on and recommend vaccination for HPV prevention. Handout given. Patient undertsands sexual transmission of high-risk HPV and association with abnormal pap smear and cervical cancer. recommend to decrease high risk behaviors such as: number of sexual partners, smoking, and contraceptive use Last Documented On 0 4:06PM ; [facility] Recommend preventative vacci nation including but not limited to influenza/flu vaccine, DTP, Rubella, Hepatitis B vaccination series Last Documented On 0 4:06PM ; [facility] Recommend annual pap smear e xamination or every three year if high risk hpv negative and 3 consecutive normal pap examination during preceding three years Last Documented On 0 4:06PM ; [facility] Recommend TSH, fasting gluco se, fasting lipid panel, CBC, BMP Last Documented On 0 4:06PM ; [facility] Recommend Calcium supplement ation and weight bearing exercise Last Documented On 0 4:06PM ; [facility] Recommended Bone Density Last Documented On 0 4:06PM ; [facility] Recommended Colonoscopy Pt r eferred to Gastroenetrologist. Pt understands that recommendation for colonoscopy is every 10 years after the age of 50 or age of 40 if first degree relative with history of colon cancer. Patient understands that failure to follow recommendation can lead to delayed diagnosis of colon cancer and patient accepts all responsibility regarding scheduling and follow up with cpht Last Documented On 0 4:06PM ; [facility] Assessments Includes: Assessments from this encounter Findings - MAMMOGRAM SCREENING - Last Documented On 08/28/2010 4:19PM ; [facility] - NORMAL FEMALE EXAM - Last Documented On 08/28/2010 4:19PM ; [facility] - Asymptomatic postmenopausal status - Last Documented On 08/28/2010 4:19PM ; [facility] - Screening Malig. Neoplasm Rectum - Last Documented On 08/28/2010 4:19PM ; [facility] Instructions Includes: Instructions from this encounter Instructions to patient Instructions for patient : B reast Self Exam discussed. Reviewed monthly self breast examination and technique Last Documented On 0 4:06PM ; [facility] Recommend diet and exercise at least 30 min three times per week Last Documented On 0 4:06PM ; [facility] Discussed Gardasil vaccinati on and recommend vaccination for HPV prevention. Handout given. Patient undertsands sexual transmission of high-risk HPV and association with abnormal pap smear and cervical cancer. recommend to decrease high risk behaviors such as: number of sexual partners, smoking, and contraceptive use Last Documented On 0 4:06PM ; [facility] Recommend preventative vacci nation including but not limited to influenza/flu vaccine, DTP, Rubella, Hepatitis B vaccination series Last Documented On 0 4:06PM ; [facility] Recommend annual pap smear e xamination or every three year if high risk hpv negative and 3 consecutive normal pap examination during preceding three years Last Documented On 0 4:06PM ; [facility] Recommend TSH, fasting gluco se, fasting lipid panel, CBC, BMP Last Documented On 0 4:06PM ; [facility] Recommend Calcium supplement ation and weight bearing exercise Last Documented On 0 4:06PM ; [facility] Recommended Bone Density Last Documented On 0 4:06PM ; [facility] Recommended Colonoscopy Pt r eferred to Gastroenetrologist. Pt understands that recommendation for colonoscopy is every 10 years after the age of 50 or age of 40 if first degree relative with history of colon cancer. Patient understands that failure to follow recommendation can lead to delayed diagnosis of colon cancer and patient accepts all responsibility regarding scheduling and follow up with cpht Last Documented On 0 4:06PM ; [facility] Medical Equipment - Implanted Devices Includes: Current Devices No Medical Equipment Recorded Medications Includes: Medications discussed during this encounter and other current Medications Current Medications (continue as prescribed) Fish Oil 1000 MG OR CAPS 09/03/2011 Provider: Diagnosis: Last Documented On 1 9:09AM By EDDA XIAO MA ; [facility] Vitamin C 500 MG OR CHEW 09/03/2011 Provider: Diagnosis: Last Documented On 1 9:09AM By EDDA XIAO MA ; [facility] Calcium-Vitamin D 600-200 MG-UNIT OR CAPS 09/03/2011 Provider: Diagnosis: Last Documented On 1 9:08AM By EDDA XIAO MA ; [facility] Melatonin 3 MG OR CAPS 09/03/2011 Provider: Diagnosis: Last Documented On 1 9:07AM By EDDA XIAO MA ; [facility] Ambien 10 MG OR TABS 09/03/2011 Provider: Diagnosis: Last Documented On 1 9:06AM By EDDA XIAO MA ; [facility] Aleve 220 MG OR CAPS 09/03/2011 Provider: Diagnosis: Last Documented On 1 9:06AM By EDDA XIAO MA ; [facility] Aspir-Low 81 MG OR TBEC 09/03/2011 Provider: Diagnosis: Last Documented On 1 9:05AM By EDDA XIAO MA ; [facility] Doxycycline Hyclate 50 MG OR CAPS 08/04/2011 Provide r: TORSTEN CROOK MD Diagnosis: Last Documented On 1 9:05AM By EDDA XIAO MA ; [facility] Simvastatin 40 MG OR TABS 08/02/2011 Provider: Diagnosis: Last Documented On 1 9:05AM By EDDA XIAO MA ; [facility] Indapamide 1.25 MG OR TABS 08/02/2011 Provider: Diagnosis: Last Documented On 1 9:05AM By EDDA XIAO MA ; [facility] amLODIPine Besylate 5 MG OR TABS 07/08/2011 Provider : Diagnosis: Last Documented On 1 9:05AM By EDDA XIAO MA ; [facility] metroNIDAZOLE 0.75% EX CREA 05/14/2011 Provider: TORSTEN CROOK MD Diagnosis: Last Documented On 1 9:05AM By EDDA XIAO MA ; [facility] Simvastatin 40 MG OR TABS 08/28/2010 Provider: Diagnosis: Last Documented On 0 3:46PM By EDDA XIAO MA ; [facility] Cozaar 100 MG OR TABS 08/28/2010 Provider: Diagnosis: Last Documented On 0 3:45PM By EDDA XIAO MA ; [facility] Indapamide 1.25 MG OR TABS 08/28/2010 Provider: Diagnosis: Last Documented On 0 3:45PM By EDDA XIAO MA ; [facility] Past Medications on file miSOPROStol 200 MCG OR TABS 09/05/2010 - 09/07/2010 Provider: ARMINDA KEITH M.D. Diagnosis: Abn Glandular Pa p Smear Take one po at 8 am and 8 pm on the day prior to procedure Last Documented On 0 8:55AM By DR. ARMINDA KEITH ; [facility] Medications Administered Includes: Administered Medications from this encounter No Administered Medications Recorded Vital Signs Includes: Vital Signs from this encounter Vital Name 08/28/2010 04:00P Blood Pressure Sitting (mmHg) 140/80 Height (in) 69 Weight (lb) 230 Body Mass Index (kg/m2) 34.0 Body Surface Area (m2) 2.2 Last Documented: On 08/28/2010 3:51PM ; [facility] Results Includes: Results discussed during this encounter No Results Recorded For Specified Dates History of Present Illness Includes: History of Present Illness from this encounter HPI LEO HIGGINS is a 59 year old female. - No complaints. Social History Description Last Updated Age of 1st intercourse was was 21 2009 Last Documented On 0 4:19PM ; [facility] In monogamous relationship 08/28/2010 Last Documented On 0 4:19PM ; [facility] Non-smoker 08/28/2010 Last Documented On 0 4:19PM ; [facility] Not using alcohol 08/28/2010 Last Documented On 0 4:19PM ; [facility] Not using drugs 08/28/2010 Last Documented On 0 4:19PM ; [facility] Sexually active 08/28/2010 Last Documented On 0 4:19PM ; [facility] Sexually active with 1 partners in the l ast year 08/28/2010 Last Documented On 0 4:19PM ; [facility] Smoking Status Unknown Procedures and Surgical History Includes: Procedures from this encounter Procedures Code Diagnosis Performing Provider Service L ocation Service Date cervical Pap smear 06626 Last Documented On 0 4:06PM ; [facility] a fecal occult blood test was negative 21409 Last Documented On 0 4:06PM ; [facility] Surgical History Last Updated Dilation + Curettage 08/28/2010 Last Documented On 0 4:19PM ; [facility] History of cholecystectomy 08/28/2010 Last Documented On 0 4:19PM ; [facility] No Bilateral salpingo-oophorectomy 08/28 Last Documented On 0 4:19PM ; [facility] No Breast Biopsy 08/28/2010 Last Documented On 0 4:19PM ; [facility] No Ectopic surgery 08/28/2010 Last Documented On 0 4:19PM ; [facility] No Endometrial Ablation 08/28/2010 Last Documented On 0 4:19PM ; [facility] No history of appendectomy 08/28/2010 Last Documented On 0 4:19PM ; [facility] No history of Loop electrode excision of cervix (LEEP) 08/28/2010 Last Documented On 0 4:19PM ; [facility] No history of total abdominal hysterecto my 08/28/2010 Last Documented On 0 4:19PM ; [facility] No history of vaginal hysterectomy 08/28 Last Documented On 0 4:19PM ; [facility] No Laparoscopic Hysterectomy 08/28/2010 Last Documented On 0 4:19PM ; [facility] No Ovarian Cystectomy 08/28/2010 Last Documented On 0 4:19PM ; [facility] No Tonsillectomy 08/28/2010 Last Documented On 0 4:19PM ; [facility] Previous colposcopy 08/28/2010 Last Documented On 0 4:19PM ; [facility] History of tubal ligation 08/28/2010 Last Documented On 0 4:19PM ; [facility] Medical History Includes: Medical History addressed during this encounter Description Last Updated Vaginal delivery 08/28/2010 Last Documented On 0 4:19PM ; [facility] History of benign essential hypertension 08/28/2010 Last Documented On 0 4:19PM ; [facility] History of hyperlipidemia 08/28/2010 Last Documented On 0 4:19PM ; [facility] A colonoscopy was performed 08/28/2010 Last Documented On 0 4:19PM ; [facility] 2 08/28/2010 Last Documented On 0 4:19PM ; [facility] Last mammogram date: 200808/28/2010 Last Documented On 0 4:19PM ; [facility] LMP: 200308/28/2010 Last Documented On 0 4:19PM ; [facility] Para 2 08/28/2010 Last Documented On 0 4:19PM ; [facility] Patient recently had a dexa scan 010 Last Documented On 0 4:19PM ; [facility] Family History Includes: Family History addressed during this encounter Description Last Updated Spouse name: [place] 08/28/2010 Last Documented On 0 4:19PM ; [facility] Family history of hypertension 0 Last Documented On 0 4:19PM ; [facility] Family history of malignant female breas t neoplasm 08/28/2010 Last Documented On 0 4:19PM ; [facility] No family history of diabetes mellitus 1 10/29/2009 Last Documented On 0 4:19PM ; [facility] No family history of hypercholesterolemi a 08/28/2010 Last Documented On 0 4:19PM ; [facility] No family history of malignant neoplasm of the large intestine 08/28/2010 Last Documented On 0 4:19PM ; [facility] No family history of malignant neoplasm of the ovary 08/28/2010 Last Documented On 0 4:19PM ; [facility] No family history of uterine cancer 08/08 Last Documented On 0 4:19PM ; [facility] No heart disease 08/28/2010 Last Documented On 0 4:19PM ; [facility] Review of Systems Includes: Review of Systems from this encounter Systemic: Not tiring easily. No fever, no chills, and no post coital bleeding. No night sweats. Head: No headache. Neck: No neck pain and no swollen glands in the neck. Cardiovascular: No chest pain or discomfort, no palpitations, and no varicosities. Pulmonary: No dyspnea, no cough, and no wheezing. Gastrointestinal: No heartburn and no indigestion. No nausea, no vomiting, no abdominal pain, no diarrhea, and no constipation. Genitourinary: No change in urinary frequency and no incomplete emptying of bladder. Urinary loss of control. No dysuria, no pain during intercourse, no vaginal dryness, and no menorrhagia. No dysmenorrhea. No nonmenstrual bleeding. Endocrine: No polydipsia, no temperature intolerance, no hot flashes, libido has not changed, and no loss of hair from the head. Hematologic: No blood clotting problems. Musculoskeletal: No back pain and no localized joint pain. Psychological: No depression and a desire to continue living. Skin: No pruritus and no rash. No boils. Allergic and Immunologic: No hay fever. Mental Status Includes: Mental Status from this encounter Description Oriented to time, place, and person A desire to continue living Functional Status Includes: Functional Status from this encounter No Functional Status Recorded Physical Exam Includes: Physical Exam from this encounter Immunizations Includes: Immunizations addressed during this encounter Vaccine Dose # Date Site Reaction(s) Status Source DTaP 1 Complete (Reported) Cally ent Last Documented On 0 4:04PM ; [facility] Influenza (Quadrivalent)36 m o.& older PF 0.5ml (SD) 1 Complete (Reported) Patient Last Documented On 0 4:04PM ; [facility] Td 1 Complete (Reported) Cally ent Last Documented On 0 4:04PM ; [facility] Allergies Includes: Active Allergies No Known Allergies Encounters Encounter Provider Location Date Check-In Time Check-Out Time Diagnosis NEW CLINICAL LAB ASSISTANT EXAM ARMINDA KEITH M.D. [facility] MECHANICAL HANDYMAN 08/28/20 10 3:17PM 4:17PM Normal Female Exam,Other Screening For Malignant Neoplasm of Breast Z12.39,Screening Malig. Neoplasm Rectum,Asymptomat ic Postmenopausal Status Clinical Notes Includes: Clinical Notes from this encounter No Clinical Notes Recorded
--- OUTSIDE RECORDS SUMMARY | 2024-10-04 09:05 | XMS_ITS | Clinical Summary ---
Author Organization [facility] Address [address] [place] [address] Phone Care Team Providers Care Coremaker Bench Name Role Phone Unavailable Unavailable Unavailable Reason for Visit and Chief Complaint gynecologic annual exam - The Chief Complaint is: WWE Problems Includes: Problems addressed during this encounter and other active Problems All Visits Onset Date Resolved Date Provider Condition S tatus HYPERLIPIDEMIA NEC/NOS 08/28/2010 BARRETT KEITH M.D. Active Last Documented On 0 3:46PM ; [facility] HYPERTENSION NOS 08/28/2010 ARMINDA KEITH M.D. Active Last Documented On 0 3:47PM ; [facility] Plan of Treatment - OTHER - Last Documented On 09/03/2011 9:47AM ; [facility] Follow-up 1 YR (SCHEDULE TODAY) - Last Documented On 09/03/2011 9:47AM ; [facility] ? Cervical Pap SmearIn office procedures/*[facility]ia Waived Labs: Pap Smear Taken - Last Documented On 09/03/2011 9:47AM ; [facility] ? SCREEN MAL NEOP-RECTUMIn office procedures/*Clia Waived Labs: *FIT Test (Fecal Occult Test) - Last Documented On 09/03/2011 9:47AM ; [facility] Pending Tests Order Diagnosis Results Due Ordering P rovider In office procedures - *[facility]ived Labs Pap Smear Taken SCREEN MAL NEOP-CERVIX 09/17/11 ARMINDA KEITH M.D. Last Documented On 1 9:46AM ; [facility] In office procedures - *[facility]ived Labs *FIT Test (Fecal Occult Test) SCREEN MAL NEOP-RECTUM 09/17/11 ARMINDA KEITH M.D. Last Documented On 1 9:46AM ; [facility] Lab SUREPATH PAP AND HR HPV DNA 10/03/11 ARMINDA KEITH M.D. Last Documented On 10:06AM ; [facility] Instructions to patient Instructions for patient : B reast Self Exam discussed. Reviewed monthly self breast examination and technique Last Documented On 9:45AM ; [facility] Recommend diet and exercise at least 30 min three times per week Last Documented On 9:45AM ; [facility] Discussed Gardasil vaccinati on and recommend vaccination for HPV prevention. Handout given. Patient undertsands sexual transmission of high-risk HPV and association with abnormal pap smear and cervical cancer. recommend to decrease high risk behaviors such as: number of sexual partners, smoking, and contraceptive use Last Documented On 9:45AM ; [facility] Recommend preventative vacci nation including but not limited to influenza/flu vaccine, DTP, Rubella, Hepatitis B vaccination series Last Documented On 9:45AM ; [facility] Recommend annual pap smear e xamination or every three year if high risk hpv negative and 3 consecutive normal pap examination during preceding three years Last Documented On 9:45AM ; [facility] Recommend TSH, fasting gluco se, fasting lipid panel, CBC, BMP Last Documented On 9:45AM ; [facility] Recommend Calcium supplement ation and weight bearing exercise Last Documented On 9:45AM ; [facility] Recommended Bone Density Last Documented On 9:45AM ; [facility] Recommended Colonoscopy Pt r [...] responsibility regarding scheduling and follow up with chemical plant technical director Last Documented On 9:45AM ; [facility] Assessments Includes: Assessments from this encounter Findings - MAMMOGRAM SCREENING - Last Documented On 09/03/2011 9:47AM ; [facility] - NORMAL FEMALE EXAM - Last Documented On 09/03/2011 9:47AM ; [facility] - Asymptomatic postmenopausal status - Last Documented On 09/03/2011 9:47AM ; [facility] - Screening Malig. Neoplasm Rectum - Last Documented On 09/03/2011 9:47AM ; [facility] Instructions Includes: Instructions from this encounter Instructions to patient Instructions for patient : B reast Self Exam discussed. Reviewed monthly self breast examination and technique Last Documented On 9:45AM ; [facility] Recommend diet and exercise at least 30 min three times per week Last Documented On 9:45AM ; [facility] Discussed Gardasil vaccinati on and recommend vaccination for HPV prevention. Handout given. Patient undertsands sexual transmission of high-risk HPV and association with abnormal pap smear and cervical cancer. recommend to decrease high risk behaviors such as: number of sexual partners, smoking, and contraceptive use Last Documented On 9:45AM ; [facility] Recommend preventative vacci nation including but not limited to influenza/flu vaccine, DTP, Rubella, Hepatitis B vaccination series Last Documented On 9:45AM ; [facility] Recommend annual pap smear e xamination or every three year if high risk hpv negative and 3 consecutive normal pap examination during preceding three years Last Documented On 9:45AM ; [facility] Recommend TSH, fasting gluco se, fasting lipid panel, CBC, BMP Last Documented On 9:45AM ; [facility] Recommend Calcium supplement ation and weight bearing exercise Last Documented On 9:45AM ; [facility] Recommended Bone Density Last Documented On 9:45AM ; [facility] Recommended Colonoscopy Pt r [...] responsibility regarding scheduling and follow up with chemical plant technical director Last Documented On 9:45AM ; [facility] Medical Equipment - Implanted Devices Includes: Current Devices No Medical Equipment Recorded Medications Includes: Medications discussed during this encounter and other current Medications Current Medications (continue as prescribed) Fish Oil 1000 MG OR CAPS 09/03/2011 Provider: Diagnosis: Last Documented On 1 9:09AM By EDDA XIAO MA ; [facility] CVS Vitamin C 500 MG OR CHEW 09/03/2011 Provider: Diagnosis: Last Documented On 1 9:09AM By EDDA XIAO MA ; [facility] Calcium-Vitamin D 600-200 MG-UNIT OR CAPS 09/03/2011 Provider: Diagnosis: Last Documented On 1 9:08AM By EDDA XIAO MA ; [facility] Melatonin 3 MG OR CAPS 09/03/2011 Provider: Diagnosis: Last Documented On 1 9:07AM By EDDA XIAO MA ; [facility] Ambien 10 MG OR TABS 09/03/2011 Provider: Diagnosis: Last Documented On 1 9:06AM By EDDA XIAO MA ; [facility] Aleve 220 MG OR CAPS 09/03/2011 Provider: Diagnosis: Last Documented On 1 9:06AM By EDDA XIAO MA ; [facility] Aspir-Low 81 MG OR TBEC 09/03/2011 Provider: Diagnosis: Last Documented On 1 9:05AM By EDDA XIAO MA ; [facility] Doxycycline Hyclate 50 MG OR CAPS 08/04/2011 Provide r: TORSTEN CROOK MD Diagnosis: Last Documented On 1 9:05AM By EDDA XIAO MA ; [facility] Simvastatin 40 MG OR TABS 08/02/2011 Provider: Diagnosis: Last Documented On 1 9:05AM By EDDA XIAO MA ; [facility] Indapamide 1.25 MG OR TABS 08/02/2011 Provider: Diagnosis: Last Documented On 1 9:05AM By EDDA XIAO MA ; [facility] amLODIPine Besylate 5 MG OR TABS 07/08/2011 Provider : Diagnosis: Last Documented On 1 9:05AM By EDDA XIAO MA ; [facility] metroNIDAZOLE 0.75% EX CREA 05/14/2011 Provider: TORSTEN CROOK MD Diagnosis: Last Documented On 1 9:05AM By EDDA XIAO MA ; [facility] Simvastatin 40 MG OR TABS 08/28/2010 Provider: Diagnosis: Last Documented On 0 3:46PM By EDDA XIAO MA ; [facility] Cozaar 100 MG OR TABS 08/28/2010 Provider: Diagnosis: Last Documented On 0 3:45PM By EDDA XIAO MA ; [facility] Indapamide 1.25 MG OR TABS 08/28/2010 Provider: Diagnosis: Last Documented On 0 3:45PM By EDDA XIAO MA ; [facility] Past Medications on file miSOPROStol 200 MCG OR TABS 09/05/2010 - 09/07/2010 Provider: ARMINDA KEITH M.D. Diagnosis: Abn Glandular Pa p Smear Take one po at 8 am and 8 pm on the day prior to procedure Last Documented On 0 8:55AM By DR. ARMINDA KEITH ; [facility] Medications Administered Includes: Administered Medications from this encounter No Administered Medications Recorded Vital Signs Includes: Vital Signs from this encounter Vital Name 09/03/2011 09:00A Blood Pressure Sitting (mmHg) 130/80 Height (in) 69 Weight (lb) 216 Body Mass Index (kg/m2) 31.9 Body Surface Area (m2) 2.1 Last Documented: On 09/03/2011 9:11AM ; [facility] Results Includes: Results discussed during this encounter No Results Recorded For Specified Dates History of Present Illness Includes: History of Present Illness from this encounter SHREYAS HIGGINS is a 60 year old female. - No complaints. Social History Description Last Updated Age of 1st intercourse was was 21 2009 Last Documented On 1 9:11AM ; [facility] In monogamous relationship 08/28/2010 Last Documented On 1 9:11AM ; [facility] Non-smoker 08/28/2010 Last Documented On 1 9:11AM ; [facility] Not using alcohol 08/28/2010 Last Documented On 1 9:11AM ; [facility] Not using drugs 08/28/2010 Last Documented On 1 9:11AM ; [facility] Sexually active 08/28/2010 Last Documented On 1 9:11AM ; [facility] Sexually active with 1 partners in the l ast year 08/28/2010 Last Documented On 1 9:11AM ; [facility] Smoking Status Unknown Procedures and Surgical History Includes: Procedures from this encounter Procedures Code Diagnosis Performing Provider Service L ocation Service Date cervical Pap smear 49880 Last Documented On 1 9:45AM ; [facility] a fecal occult blood test was negative [id number] Last Documented On 1 9:45AM ; [facility] Surgical History Last Updated Tonsillectomy 09/03/2011 Last Documented On 1 9:47AM ; [facility] Dilation + Curettage 08/28/2010 Last Documented On 1 9:11AM ; [facility] History of cholecystectomy 08/28/2010 Last Documented On 1 9:11AM ; [facility] No Bilateral salpingo-oophorectomy 08/28 Last Documented On 1 9:11AM ; [facility] No Breast Biopsy 08/28/2010 Last Documented On 1 9:11AM ; [facility] No Ectopic surgery 08/28/2010 Last Documented On 1 9:11AM ; [facility] No Endometrial Ablation 08/28/2010 Last Documented On 1 9:11AM ; [facility] No history of appendectomy 08/28/2010 Last Documented On 1 9:11AM ; [facility] No history of Loop electrode excision of cervix (LEEP) 08/28/2010 Last Documented On 1 9:11AM ; [facility] No history of total abdominal hysterecto my 08/28/2010 Last Documented On 1 9:11AM ; [facility] No history of vaginal hysterectomy 08/28 Last Documented On 1 9:11AM ; [facility] No Laparoscopic Hysterectomy 08/28/2010 Last Documented On 1 9:11AM ; [facility] No Ovarian Cystectomy 08/28/2010 Last Documented On 1 9:11AM ; [facility] Previous colposcopy 08/28/2010 Last Documented On 1 9:11AM ; [facility] History of tubal ligation 08/28/2010 Last Documented On 1 9:11AM ; [facility] Medical History Includes: Medical History addressed during this encounter Description Last Updated Last mammogram date: 05/04/2011 1 Last Documented On 1 9:47AM ; [facility] Last pap smear date 09/03/2010 1 Last Documented On 1 9:47AM ; [facility] Result: abnormal 09/16/2010 Last Documented On 1 9:11AM ; [facility] Vaginal delivery 08/28/2010 Last Documented On 1 9:11AM ; [facility] History of benign essential hypertension 08/28/2010 Last Documented On 1 9:11AM ; [facility] History of hyperlipidemia 08/28/2010 Last Documented On 1 9:11AM ; [facility] A colonoscopy was performed 08/28/2010 Last Documented On 1 9:11AM ; [facility] 2 08/28/2010 Last Documented On 1 9:11AM ; [facility] LMP: 2004 08/28/2010 Last Documented On 1 9:11AM ; [facility] Para 2 08/28/2010 Last Documented On 1 9:11AM ; [facility] Patient recently had a dexa scan 010 Last Documented On 1 9:11AM ; [facility] Family History Includes: Family History addressed during this encounter Description Last Updated Spouse name: [place] 08/28/2010 Last Documented On 1 9:11AM ; [facility] Family history of hypertension 0 Last Documented On 1 9:11AM ; [facility] Family history of malignant female breas t neoplasm 08/28/2010 Last Documented On 1 9:11AM ; [facility] No family history of diabetes mellitus 1 10/29/2009 Last Documented On 1 9:11AM ; [facility] No family history of hypercholesterolemi a 08/28/2010 Last Documented On 1 9:11AM ; [facility] No family history of malignant neoplasm of the large intestine 08/28/2010 Last Documented On 1 9:11AM ; [facility] No family history of malignant neoplasm of the ovary 08/28/2010 Last Documented On 1 9:11AM ; [facility] No family history of uterine cancer 08/08 Last Documented On 1 9:11AM ; [facility] No heart disease 08/28/2010 Last Documented On 1 9:11AM ; [facility] Review of Systems Includes: Review of Systems [...] frequency and no incomplete emptying of bladder. 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 Neoplasm Rectum,Asymptomat ic Postmenopausal Status Clinical Notes Includes: Clinical Notes from this encounter No Clinical Notes Recorded
--- OUTSIDE RECORDS SUMMARY | 2024-10-04 09:05 | XMS_ITS ---
Care Plan - [facility] Created on: October 04, 2024 LEO HIGGINS : 1950 Sex: Female Author Organization [facility] Address [address] [place] [address] Phone Care Team Providers Care Director Loss Prevention Name Role Phone Unavailable Unavailable Unavailable
--- OUTSIDE RECORDS SUMMARY | 2024-10-04 09:05 | XMS_ITS | Clinical Summary ---
Author Organization [facility] Address [address] [place] [address] Phone Care Team Providers Care Dental Detail Representative Name Role Phone Unavailable Unavailable Unavailable Reason for Visit and Chief Complaint abnormal Pap smear endometrial cells, abnormal Pap smear - The Chief Complaint is: emb Problems Includes: Problems addressed during this encounter and other active Problems All Visits Onset Date Resolved Date Provider Condition S tatus HYPERLIPIDEMIA NEC/NOS 08/28/2010 BARRETT KEITH M.D. Active Last Documented On 0 3:46PM ; [facility] HYPERTENSION NOS 08/28/2010 ARMINDA KEITH M.D. Active Last Documented On 0 3:47PM ; [facility] Plan of Treatment - ABNORMAL PAP SMEAR - Last Documented On 09/16/2010 3:39PM ; [facility] Lab: TISSUE PATHOLOGY - Last Documented On 09/16/2010 3:39PM ; [facility] ? OTHERFollow-up prn - Last Documented On 09/16/2010 3:39PM ; [facility] Pending Tests Order Diagnosis Results Due Ordering P francy Lab TISSUE PATHOLOGY 10/16/10 ARMINDA KEITH M.D. Last Documented On 1 3:33PM ; [facility] Assessments Includes: Assessments from this encounter Findings - Abnormal Pap Smear - Last Documented On 09/16/2010 3:39PM ; [facility] Medical Equipment - Implanted Devices Includes: Current Devices No Medical Equipment Recorded Medications Includes: Medications discussed during this encounter and other current Medications Current Medications (continue as prescribed) Fish Oil 1000 MG OR CAPS 09/03/2011 Provider: Diagnosis: Last Documented On 1 9:09AM By EDDA XIAO MA ; [facility] Vitamin C 500 MG OR CHEW 09/03/2011 Provider: Diagnosis: Last Documented On 1 9:09AM By EDDA XIAO MA ; [facility] Calcium-Vitamin D 600-200 MG-UNIT OR CAPS 09/03/2011 Provider: Diagnosis: Last Documented On 1 9:08AM By EDDA XIAO MA ; [facility] Melatonin 3 MG OR CAPS 09/03/2011 Provider: Diagnosis: Last Documented On 1 9:07AM By EDDA XIAO MA ; [facility] Ambien 10 MG OR TABS 09/03/2011 Provider: Diagnosis: Last Documented On 1 9:06AM By EDDA XIAO MA ; [facility] Aleve 220 MG OR CAPS 09/03/2011 Provider: Diagnosis: Last Documented On 1 9:06AM By EDDA XIAO MA ; [facility] Aspir-Low 81 MG OR TBEC 09/03/2011 Provider: Diagnosis: Last Documented On 1 9:05AM By EDDA XIAO MA ; [facility] Doxycycline Hyclate 50 MG OR CAPS 08/04/2011 Provide r: TORSTEN CROOK MD Diagnosis: Last Documented On 1 9:05AM By EDDA XIAO MA ; [facility] Simvastatin 40 MG OR TABS 08/02/2011 Provider: Diagnosis: Last Documented On 1 9:05AM By EDDA XIAO MA ; [facility] Indapamide 1.25 MG OR TABS 08/02/2011 Provider: Diagnosis: Last Documented On 1 9:05AM By EDDA XIAO MA ; [facility] amLODIPine Besylate 5 MG OR TABS 07/08/2011 Provider : Diagnosis: Last Documented On 1 9:05AM By EDDA XIAO MA ; [facility] metroNIDAZOLE 0.75% EX CREA 05/14/2011 Provider: TORSTEN CROOK MD Diagnosis: Last Documented On 1 9:05AM By EDDA XIAO MA ; [facility] Simvastatin 40 MG OR TABS 08/28/2010 Provider: Diagnosis: Last Documented On 0 3:46PM By EDDA XIAO MA ; [facility] Cozaar 100 MG OR TABS 08/28/2010 Provider: Diagnosis: Last Documented On 0 3:45PM By EDDA XIAO MA ; [facility] Indapamide 1.25 MG OR TABS 08/28/2010 Provider: Diagnosis: Last Documented On 0 3:45PM By EDDA XIAO MA ; [facility] Past Medications on file miSOPROStol 200 MCG OR TABS 09/05/2010 - 09/07/2010 Provider: ARMINDA KEITH M.D. Diagnosis: Abn Glandular Pa p Smear Take one po at 8 am and 8 pm on the day prior to procedure Last Documented On 0 8:55AM By DR. ARMINDA KEITH ; [facility] Medications Administered Includes: Administered Medications from this encounter No Administered Medications Recorded Vital Signs Includes: Vital Signs from this encounter Vital Name 09/16/2010 03:45P Blood Pressure Sitting (mmHg) 130/80 Weight (lb) 227 Last Documented: On 09/16/2010 3:18PM ; [facility] Results Includes: Results discussed during this encounter No Results Recorded For Specified Dates History of Present Illness Includes: History of Present Illness from this encounter No History of Present Illness Recorded Social History Description Last Updated Age of 1st intercourse was was 21 2009 Last Documented On 1 3:11PM ; [facility] In monogamous relationship 08/28/2010 Last Documented On 1 3:11PM ; [facility] Non-smoker 08/28/2010 Last Documented On 1 3:11PM ; [facility] Not using alcohol 08/28/2010 Last Documented On 1 3:11PM ; [facility] Not using drugs 08/28/2010 Last Documented On 1 3:11PM ; [facility] Sexually active 08/28/2010 Last Documented On 1 3:11PM ; [facility] Sexually active with 1 partners in the l ast year 08/28/2010 Last Documented On 1 3:11PM ; [facility] Smoking Status Unknown Procedures and Surgical History Includes: Procedures from this encounter Procedures Code Diagnosis Performing Provider Service L ocation Service Date biopsy was performed Last Documented On 1 3:34PM ; [facility] endometrial biopsy was perfo rmed ~Procedure Note: Sterile speculum was placed in vaginal vault. The cervix was cleansed with Betadine. The anterior lip of the cervix was grasped with a single tooth tenaculum. The uterus was sounded to 7 cm. The endometrial biopsy pipelle was utilized to obtain specimen. The specimen was sent to pathology. The tenaculum was removed from the cervix. There was noted to be excellent hemostasis. The speculum was removed from the vaginal vault. The patient tolerated the procedure well 06118 Last Documented On 1 3:34PM ; [facility] pathology [id number] Last Documented On 1 3:34PM ; [facility] Surgical History Last Updated No Tonsillectomy 09/03/2011 Last Documented On 1 3:11PM ; [facility] Dilation + Curettage 08/28/2010 Last Documented On 1 3:11PM ; [facility] History of cholecystectomy 08/28/2010 Last Documented On 1 3:11PM ; [facility] No Bilateral salpingo-oophorectomy 08/28 Last Documented On 1 3:11PM ; [facility] No Breast Biopsy 08/28/2010 Last Documented On 1 3:11PM ; [facility] No Ectopic surgery 08/28/2010 Last Documented On 1 3:11PM ; [facility] No Endometrial Ablation 08/28/2010 Last Documented On 1 3:11PM ; [facility] No history of appendectomy 08/28/2010 Last Documented On 1 3:11PM ; [facility] No history of Loop electrode excision of cervix (LEEP) 08/28/2010 Last Documented On 1 3:11PM ; [facility] No history of total abdominal hysterecto my 08/28/2010 Last Documented On 1 3:11PM ; [facility] No history of vaginal hysterectomy 08/28 Last Documented On 1 3:11PM ; [facility] No Laparoscopic Hysterectomy 08/28/2010 Last Documented On 1 3:11PM ; [facility] No Ovarian Cystectomy 08/28/2010 Last Documented On 1 3:11PM ; [facility] Previous colposcopy 08/28/2010 Last Documented On 1 3:11PM ; [facility] History of tubal ligation 08/28/2010 Last Documented On 1 3:11PM ; [facility] Medical History Includes: Medical History addressed during this encounter Description Last Updated Last mammogram date: 200809/03/2011 Last Documented On 1 3:11PM ; [facility] Result: abnormal 09/16/2010 Last Documented On 1 3:39PM ; [facility] Vaginal delivery 08/28/2010 Last Documented On 1 3:11PM ; [facility] History of benign essential hypertension 08/28/2010 Last Documented On 1 3:11PM ; [facility] History of hyperlipidemia 08/28/2010 Last Documented On 1 3:11PM ; [facility] A colonoscopy was performed 08/28/2010 Last Documented On 1 3:11PM ; [facility] 2 08/28/2010 Last Documented On 1 3:11PM ; [facility] LMP: 2004 08/28/2010 Last Documented On 1 3:11PM ; [facility] Para 2 08/28/2010 Last Documented On 1 3:11PM ; [facility] Patient recently had a dexa scan 010 Last Documented On 1 3:11PM ; [facility] Family History Includes: Family History addressed during this encounter Description Last Updated Spouse name: [place] 08/28/2010 Last Documented On 1 3:11PM ; [facility] Family history of hypertension 0 Last Documented On 1 3:11PM ; [facility] Family history of malignant female breas t neoplasm 08/28/2010 Last Documented On 1 3:11PM ; [facility] No family history of diabetes mellitus 1 10/29/2009 Last Documented On 1 3:11PM ; [facility] No family history of hypercholesterolemi a 08/28/2010 Last Documented On 1 3:11PM ; [facility] No family history of malignant neoplasm of the large intestine 08/28/2010 Last Documented On 1 3:11PM ; [facility] No family history of malignant neoplasm of the ovary 08/28/2010 Last Documented On 1 3:11PM ; [facility] No family history of uterine cancer 08/08 Last Documented On 1 3:11PM ; [facility] No heart disease 08/28/2010 Last Documented On 1 3:11PM ; [facility] Review of Systems Includes: Review of Systems from this encounter Systemic: Not feeling poorly (malaise). No fever, no chills, no post coital bleeding, and no recent weight change. No night sweats. Head: No headache, no facial pain, and no sinus pain. Neck: No neck pain and no swollen glands in the neck. Eyes: No eye symptoms and no itching of the eyes. No pain in or around the eyes and no photophobia. Otolaryngeal: No hearing loss, no earache, no tinnitus, no nasal discharge, no epistaxis, no hoarseness, no throat pain, and no bleeding gums. No mouth sores. Cardiovascular: No chest pain or discomfort, no [...] intercourse, no vaginal dryness, and no menorrhagia. Dysfunctional uterine bleeding. No nonmenstrual bleeding. Endocrine: No polydipsia, no temperature intolerance, no hot flashes, libido has not changed, and no loss of hair from the head. Hematologic: No blood clotting problems. Musculoskeletal: No back pain and no localized joint pain. Neurological: No tingling and no numbness. Psychological: No anxiety, no depression, no sleep disturbances, and a desire to continue living. Skin: No pruritus and no rash. No boils. Mental Status Includes: Mental Status from this encounter Description Oriented to time, place, and person No anxiety A desire to continue living Functional Status Includes: Functional Status from this encounter No Functional Status Recorded Physical Exam Includes: Physical Exam from this encounter Allergies Includes: Active Allergies No Known Allergies Encounters Encounter Provider Location Date Check-In Time Check-Out Time Diagnosis ENDOMETRIAL BIOPSY ARMINDA KEITH M.D. [facility] DIRECTOR PUBLIC SERVICE 09/16/19 11 2:48PM 3:36PM Abnormal Pap Smear Clinical Notes Includes: Clinical Notes from this encounter No Clinical Notes Recorded
== END 2024-10-04 08:48 | disposition home or self-care (01) ==
LOC: ANHIMG 08:49
PROVIDERS: PCP Internal Medicine; Visit Provider Internal Medicine Hematology & Oncology
DX: D69.59 Other secondary thrombocytopenia (principal); Z90.49 Acquired absence of other specified parts of digestive tract
CPT/HCPCS: 76700

== ENCOUNTER 2025-01-03 09:29 | Outpatient (CLI) | payer MEDICARE, OTHER, SELFPAY ==
[2025-01-03 09:52] LABS: Hematocrit 43.3 % (37.0-47.0); Hemoglobin 14.2 g/dL (12.0-15.0); Immature Platelet Fraction Pct 8.3 % (0.9-11.2); Mean Corpuscular HGB Conc 32.8 g/dl (32-36); Mean Corpuscular Hemoglobin 29.6 pg (26-34); Mean Corpuscular Volume 90.2 fl (80-100); Mean Platelet Volume 11.4 fl (7.4-10.4); Platelet Count Result 126 k/mm3 (150-375); Red Cell Distribution Width 11.9 % (11.5-14.5); White Blood Count 4.1 K/mm3 (4.5-10.0)
--- OUTSIDE RECORDS SUMMARY | 2025-01-03 10:24 | XMS_ITS | Continuity of Care Document ---
Author Organization [facility] Address [address] [place] [address] Phone Care Team Providers Care Director Of Home Care Hospice Name Role Phone Unavailable Unavailable Unavailable Procedures Procedure Date Postop followup visit Knee arthscpy mnsctmy medial or lat Arthro, loose body + chondro Postop followup visit Office/outpatient visit,est, mod 2005 MRI lwr extrm joint, w/ocntrst Office/outpatient visit,est, mod 2005 X-ray exam of knee, 3 views Advance Directives Directive Yes / No Effective Date File Name No Information Encounters Encounter Description Practice Location Reason(s) For Visit Diagnoses Date Provider Providers Copied on Encounter [facility], [address], [id number], [place] tel:[phone] [facility] No Information 6 No Information [facility], [address] [facility] [address], [place], [id number], [place] tel:[phone] [facility] No Information 6 No Information [facility], [address] [facility] [address], [place], [id number], [place] tel:[phone] [facility] No Information 6 No Information [facility], [address], [id number], tel:[phone] [facility] No Information 6 No Information Office/outpat ient visit,est, [facility], [address] [facility] [facility] [address] [place], [place], [id number], [place] tel:[phone] [facility] No Information 6 No Information [facility], [address] [facility] [facility] [address], [place], [place], [id number], [place] tel:[phone] [facility] No Information 6 No Information Office/outpat ient visit,[facility], [facility], [address] [address], [place], [place], [id number], [place] tel:[phone] [facility] No Information 6 No Information Family History Family Member Type Diagnosis Age At Onset No Information Payers Payer name Insurance type Covered republican ID Authoriza tiniki(s) [facility] [id number] Social History Type Description Quantity Date Captured Comments Sex Female Smoking Status No Information Chief Complaint And Reason For Visit No Information Reason For Referral Reason For Referral No Information History Of Present Illness Encounter Date Complaint History Of Prese nt Illness No Information Functional Status Date Functional Assessmen t No Information Instructions Date Instruction Additional Infor mation No Information Assessments Type Assessment Date No Information Patient Care Teams Name Effective Dates (start - stop) Status Members No Information
--- OUTSIDE RECORDS SUMMARY | 2025-01-03 10:24 | XMS_ITS ---
Author Organization [facility] Address [address] [place] [address] Phone Care Team Providers Care Motor Adjuster Name Role Phone Unavailable Unavailable Unavailable Problems Includes: Active, inactive, and resolved Problems All Visits Onset Date Resolved Date Provider Condition S tatus HYPERLIPIDEMIA NEC/NOS 08/28/2010 BARRETT KEITH M.D. Active Last Documented On 0 3:46PM ; [facility] HYPERTENSION NOS 08/28/2010 ARMINDA KEITH M.D. Active Last Documented On 0 3:47PM ; [facility] Plan of Treatment Instructions to patient Instructions for patient : B reast Self Exam discussed. Reviewed monthly self breast examination and technique Last Documented On 1 9:45AM ; [facility] Recommend diet and exercise at least 30 min three times per week Last Documented On 1 9:45AM ; [facility] Discussed Gardasil vaccinati on and recommend vaccination for HPV prevention. Handout given. Patient undertsands sexual transmission of high-risk HPV and association with abnormal pap smear and cervical cancer. recommend to decrease high risk behaviors such as: number of sexual partners, smoking, and contraceptive use Last Documented On 1 9:45AM ; [facility] Recommend preventative vacci nation including but not limited to influenza/flu vaccine, DTP, Rubella, Hepatitis B vaccination series Last Documented On 1 9:45AM ; [facility] Recommend annual pap smear e xamination or every three year if high risk hpv negative and 3 consecutive normal pap examination during preceding three years Last Documented On 1 9:45AM ; [facility] Recommend TSH, fasting gluco se, fasting lipid panel, CBC, BMP Last Documented On 1 9:45AM ; [facility] Recommend Calcium supplement ation and weight bearing exercise Last Documented On 1 9:45AM ; [facility] Recommended Bone Density Last Documented On 1 9:45AM ; [facility] Recommended Colonoscopy Pt r [...] responsibility regarding scheduling and follow up with gum maker Last Documented On 1 9:45AM ; [facility] Instructions for patient : B reast Self Exam discussed. Reviewed monthly self breast examination and technique Last Documented On 0 4:06PM ; [facility] Recommend diet and exercise at least 30 min three times per week Last Documented On 0 4:06PM ; [facility] Discussed Gardasil vaccinati on and recommend vaccination for HPV prevention. Handout given. Patient undertsands sexual transmission of high-risk HPV and association with abnormal pap smear and cervical cancer. recommend to decrease high risk behaviors such as: number of sexual partners, smoking, and contraceptive use Last Documented On 0 4:06PM ; [facility] Recommend preventative vacci nation including but not limited to influenza/flu vaccine, DTP, Rubella, Hepatitis B vaccination series Last Documented On 0 4:06PM ; [facility] Recommend annual pap smear e xamination or every three year if high risk hpv negative and 3 consecutive normal pap examination during preceding three years Last Documented On 0 4:06PM ; [facility] Recommend TSH, fasting gluco se, fasting lipid panel, CBC, BMP Last Documented On 0 4:06PM ; [facility] Recommend Calcium supplement ation and weight bearing exercise Last Documented On 0 4:06PM ; [facility] Recommended Bone Density Last Documented On 0 4:06PM ; [facility] Recommended Colonoscopy Pt r [...] responsibility regarding scheduling and follow up with gum maker Last Documented On 0 4:06PM ; [facility] [place] Assessments Includes: Assessments for all patient encounters Findings Encounter Date Asymptomatic postmenopausal status ANNUA L SUPERINTENDENT REFUSE DISPOSAL EXAM with ARMINDA KEITH M.D. 09/03/2011 Last Documented On 1 9:47AM ; [facility] MAMMOGRAM SCREENING ANNUAL SUPERINTENDENT REFUSE DISPOSAL EXAM with ARMINDA KEITH M.D. 09/03/2011 Last Documented On 1 9:47AM ; [facility] NORMAL FEMALE EXAM ANNUAL SUPERINTENDENT REFUSE DISPOSAL EXAM with ARMINDA KEITH M.D. 09/03/2011 Last Documented On 1 9:47AM ; [facility] Screening Malig. Neoplasm Rectum ANNUAL SUPERINTENDENT REFUSE DISPOSAL EXAM with ARMINDA KEITH M.D. 09/03/2011 Last Documented On 1 9:47AM ; [facility] Abnormal Pap Smear ENDOMETRIAL BIOPSY with BARRETT KEITH M.D. 09/16/2010 Last Documented On 1 3:39PM ; [facility] Asymptomatic postmenopausal status NEW G YN EXAM with ARMINDA KEITH M.D. 08/28/2010 Last Documented On 0 4:19PM ; [facility] MAMMOGRAM SCREENING NEW INTERNAL INVESTIGATOR EXAM with ARMINDA KEITH M.D. 08/28/2010 Last Documented On 0 4:19PM ; [facility] NORMAL FEMALE EXAM NEW INTERNAL INVESTIGATOR EXAM with ARMINDA LOZADA M.D. 08/28/2010 Last Documented On 0 4:19PM ; [facility] Screening Malig. Neoplasm Rectum NEW INTERNAL INVESTIGATOR EXAM wi th ARMINDA KEITH M.D. 08/28/2010 Last Documented On 0 4:19PM ; [facility] Instructions Includes: Instructions for all patient encounters Instructions to patient Instructions for patient : B reast Self Exam discussed. Reviewed monthly self breast examination and technique Last Documented On 1 9:45AM ; [facility] Recommend diet and exercise at least 30 min three times per week Last Documented On 1 9:45AM ; [facility] Discussed Gardasil vaccinati on and recommend vaccination for HPV prevention. Handout given. Patient undertsands sexual transmission of high-risk HPV and association with abnormal pap smear and cervical cancer. recommend to decrease high risk behaviors such as: number of sexual partners, smoking, and contraceptive use Last Documented On 1 9:45AM ; [facility] Recommend preventative vacci nation including but not limited to influenza/flu vaccine, DTP, Rubella, Hepatitis B vaccination series Last Documented On 1 9:45AM ; [facility] Recommend annual pap smear e xamination or every three year if high risk hpv negative and 3 consecutive normal pap examination during preceding three years Last Documented On 1 9:45AM ; [facility] Recommend TSH, fasting gluco se, fasting lipid panel, CBC, BMP Last Documented On 1 9:45AM ; [facility] Recommend Calcium supplement ation and weight bearing exercise Last Documented On 1 9:45AM ; [facility] Recommended Bone Density Last Documented On 1 9:45AM ; [facility] Recommended Colonoscopy Pt r [...] responsibility regarding scheduling and follow up with gum maker Last Documented On 1 9:45AM ; [facility] Instructions for patient : B reast Self Exam discussed. Reviewed monthly self breast examination and technique Last Documented On 0 4:06PM ; [facility] Recommend diet and exercise at least 30 min three times per week Last Documented On 0 4:06PM ; [facility] Discussed Gardasil vaccinati on and recommend vaccination for HPV prevention. Handout given. Patient undertsands sexual transmission of high-risk HPV and association with abnormal pap smear and cervical cancer. recommend to decrease high risk behaviors such as: number of sexual partners, smoking, and contraceptive use Last Documented On 0 4:06PM ; [facility] Recommend preventative vacci nation including but not limited to influenza/flu vaccine, DTP, Rubella, Hepatitis B vaccination series Last Documented On 0 4:06PM ; [facility] Recommend annual pap smear e xamination or every three year if high risk hpv negative and 3 consecutive normal pap examination during preceding three years Last Documented On 0 4:06PM ; [facility] Recommend TSH, fasting gluco se, fasting lipid panel, CBC, BMP Last Documented On 0 4:06PM ; [facility] Recommend Calcium supplement ation and weight bearing exercise Last Documented On 0 4:06PM ; [facility] Recommended Bone Density Last Documented On 0 4:06PM ; [facility] Recommended Colonoscopy Pt r [...] responsibility regarding scheduling and follow up with gum maker Last Documented On 0 4:06PM ; [facility] Medical Equipment - Implanted Devices Includes: Current and historical Devices No Medical Equipment Recorded Medications Includes: Current and historical Medications Current Medications (continue as prescribed) Fish Oil 1000 MG OR CAPS 09/03/2011 Provider: Diagnosis: Last Documented On 1 9:09AM By EDDA XIAO MA ; [facility] Vitamin C 500 MG OR CHEW 09/03/2011 Provider: Diagnosis: Last Documented On 1 9:09AM By EDDA XIAO MA ; [facility] Calcium-Vitamin D 600-200 MG-UNIT OR CAPS 09/03/2011 Provider: Diagnosis: Last Documented On 1 9:08AM By EDDA XIAO MA ; [facility] Melatonin 3 MG OR CAPS 09/03/2011 Provider: Diagnosis: Last Documented On 1 9:07AM By EDDA XIAO MA ; [facility] Ambien 10 MG OR TABS 09/03/2011 Provider: Diagnosis: Last Documented On 1 9:06AM By EDDA XIAO MA ; [facility] Aleve 220 MG OR CAPS 09/03/2011 Provider: Diagnosis: Last Documented On 1 9:06AM By EDDA XIAO MA ; [facility] Aspir-Low 81 MG OR TBEC 09/03/2011 Provider: Diagnosis: Last Documented On 1 9:05AM By EDDA XIAO MA ; [facility] Doxycycline Hyclate 50 MG OR CAPS 08/04/2011 Provide r: TORSTEN CROOK MD Diagnosis: Last Documented On 1 9:05AM By EDDA XIAO MA ; [facility] Simvastatin 40 MG OR TABS 08/02/2011 Provider: Diagnosis: Last Documented On 1 9:05AM By EDDA XIAO MA ; [facility] Indapamide 1.25 MG OR TABS 08/02/2011 Provider: Diagnosis: Last Documented On 1 9:05AM By EDDA XIAO MA ; [facility] amLODIPine Besylate 5 MG OR TABS 07/08/2011 Provider : Diagnosis: Last Documented On 1 9:05AM By EDDA XIAO MA ; [facility] metroNIDAZOLE 0.75% EX CREA 05/14/2011 Provider: TORSTEN CROOK MD Diagnosis: Last Documented On 1 9:05AM By EDDA XIAO MA ; [facility] Simvastatin 40 MG OR TABS 08/28/2010 Provider: Diagnosis: Last Documented On 0 3:46PM By EDDA XIAO MA ; [facility] Cozaar 100 MG OR TABS 08/28/2010 Provider: Diagnosis: Last Documented On 0 3:45PM By EDDA XIAO MA ; [facility] Indapamide 1.25 MG OR TABS 08/28/2010 Provider: Diagnosis: Last Documented On 0 3:45PM By EDDA XIAO MA ; [facility] Past Medications on file miSOPROStol 200 MCG OR TABS 09/05/2010 - 09/07/2010 Provider: ARMINDA KEITH M.D. Diagnosis: Abn Glandular Pa p Smear Take one po at 8 am and 8 pm on the day prior to procedure Last Documented On 0 8:55AM By DR. ARMINDA KEITH ; [facility] [place] Medications Administered Includes: Administered Medications in patient's chart No Administered Medications Recorded Results Includes: Results from 01/04/2024 through 01/03/2025 No Results Recorded For Specified Dates History of Present Illness History of Present Illness not supported for this document type No History of Present Illness Recorded Social History Description Last Updated Age of 1st intercourse was was 21 2009 Last Documented On 0 4:19PM ; [facility] In monogamous relationship 08/28/2010 Last Documented On 0 4:19PM ; [facility] Non-smoker 08/28/2010 Last Documented On 0 4:19PM ; [facility] Not using alcohol 08/28/2010 Last Documented On 0 4:19PM ; [facility] Not using drugs 08/28/2010 Last Documented On 0 4:19PM ; [facility] Sexually active 08/28/2010 Last Documented On 0 4:19PM ; [facility] Sexually active with 1 partners in the l ast year 08/28/2010 Last Documented On 0 4:19PM ; [facility] Smoking Status Unknown Procedures and Surgical History Surgical History Last Updated Tonsillectomy 09/03/2011 Last Documented On 1 9:47AM ; [facility] Dilation + Curettage 08/28/2010 Last Documented On 0 4:19PM ; [facility] History of cholecystectomy 08/28/2010 Last Documented On 0 4:19PM ; [facility] No Bilateral salpingo-oophorectomy 08/28 Last Documented On 0 4:19PM ; [facility] No Breast Biopsy 08/28/2010 Last Documented On 0 4:19PM ; [facility] No Ectopic surgery 08/28/2010 Last Documented On 0 4:19PM ; [facility] No Endometrial Ablation 08/28/2010 Last Documented On 0 4:19PM ; [facility] No history of appendectomy 08/28/2010 Last Documented On 0 4:19PM ; [facility] No history of Loop electrode excision of cervix (LEEP) 08/28/2010 Last Documented On 0 4:19PM ; [facility] No history of total abdominal hysterecto my 08/28/2010 Last Documented On 0 4:19PM ; [facility] No history of vaginal hysterectomy 08/28 Last Documented On 0 4:19PM ; [facility] No Laparoscopic Hysterectomy 08/28/2010 Last Documented On 0 4:19PM ; [facility] No Ovarian Cystectomy 08/28/2010 Last Documented On 0 4:19PM ; [facility] Previous colposcopy 08/28/2010 Last Documented On 0 4:19PM ; [facility] History of tubal ligation 08/28/2010 Last Documented On 0 4:19PM ; [facility] Medical History Includes: Medical History in patient's chart Description Last Updated Last mammogram date: 05/04/2011 1 Last Documented On 1 9:47AM ; [facility] Last pap smear date 09/03/2010 1 Last Documented On 1 9:47AM ; [facility] Result: abnormal 09/16/2010 Last Documented On 1 3:39PM ; [facility] Vaginal delivery 08/28/2010 Last Documented On 0 4:19PM ; [facility] History of benign essential hypertension 08/28/2010 Last Documented On 0 4:19PM ; [facility] History of hyperlipidemia 08/28/2010 Last Documented On 0 4:19PM ; [facility] A colonoscopy was performed 08/28/2010 Last Documented On 0 4:19PM ; [facility] 2 08/28/2010 Last Documented On 0 4:19PM ; [facility] LMP: 2004 08/28/2010 Last Documented On 0 4:19PM ; [facility] Para 2 08/28/2010 Last Documented On 0 4:19PM ; [facility] Patient recently had a dexa scan 010 Last Documented On 0 4:19PM ; [facility] Family History Includes: Family History in patient's chart Description Last Updated Spouse name: [place] 08/28/2010 Last Documented On 0 4:19PM ; [facility] Family history of hypertension 0 Last Documented On 0 4:19PM ; [facility] Family history of malignant female breas t neoplasm 08/28/2010 Last Documented On 0 4:19PM ; [facility] No family history of diabetes mellitus 1 10/29/2009 Last Documented On 0 4:19PM ; [facility] No family history of hypercholesterolemi a 08/28/2010 Last Documented On 0 4:19PM ; [facility] No family history of malignant neoplasm of the large intestine 08/28/2010 Last Documented On 0 4:19PM ; [facility] No family history of malignant neoplasm of the ovary 08/28/2010 Last Documented On 0 4:19PM ; [facility] No family history of uterine cancer 08/08 Last Documented On 0 4:19PM ; [facility] No heart disease 08/28/2010 Last Documented On 0 4:19PM ; [facility] Review of Systems Review of Systems not [...] ent Last Documented On 0 4:04PM ; [facility] Influenza (Quadrivalent)36 m o.& older PF 0.5ml (SD) 1 Complete (Reported) Patient Last Documented On 0 4:04PM ; [facility] Td 1 Complete (Reported) Cally ent Last Documented On 0 4:04PM ; [facility] Allergies Includes: Active, inactive, and resolved Allergies No Known Allergies Clinical Notes Includes: Signed Clinical Notes starting from 09/26/2022 No Clinical Notes Recorded
--- OUTSIDE RECORDS SUMMARY | 2025-01-03 10:24 | XMS_ITS ---
Care Plan - [facility] Created on: January 03, 2025 LEO HIGGINS : 1950 Sex: Female Author Organization [facility] Address [address] [place] [address] Phone Care Team Providers Care Law Firm Receptionist Name Role Phone Unavailable Unavailable Unavailable
--- OUTSIDE RECORDS SUMMARY | 2025-01-03 10:24 | XMS_ITS | Clinical Summary ---
Author Organization [facility] Address [address] [place] [address] Phone Care Team Providers Care Observer [employer] Name Role Phone Unavailable Unavailable Unavailable Reason for Visit and Chief Complaint abnormal Pap smear endometrial cells, abnormal Pap smear - The Chief Complaint is: emb Problems Includes: Problems addressed during this encounter and other active Problems All Visits Onset Date Resolved Date Provider Condition S tatus HYPERLIPIDEMIA NEC/NOS 08/28/2010 BARRETT KEITH M.D. Active Last Documented On 0 3:46PM ; [facility] HYPERTENSION NOS 08/28/2010 ARMINDA KEITH M.D. Active Last Documented On 0 3:47PM ; [facility] Plan of Treatment - ABNORMAL PAP SMEAR - Last Documented On 09/16/2010 3:39PM ; [facility] Lab: TISSUE PATHOLOGY - Last Documented On 09/16/2010 3:39PM ; [facility] ? OTHERFollow-up prn - Last Documented On 09/16/2010 3:39PM ; [facility] Pending Tests Order Diagnosis Results Due Ordering P francy Lab TISSUE PATHOLOGY 10/16/10 ARMINDA KEITH M.D. Last Documented On 1 3:33PM ; [facility] Assessments Includes: Assessments from this encounter Findings - Abnormal Pap Smear - Last Documented On 09/16/2010 3:39PM ; [facility] Medical Equipment - Implanted Devices Includes: Current Devices No Medical Equipment Recorded Medications Includes: Medications discussed during this encounter and other current Medications Current Medications (continue as prescribed) Fish Oil 1000 MG OR CAPS 09/03/2011 Provider: Diagnosis: Last Documented On 1 9:09AM By EDDA XIAO MA ; [facility] Vitamin C 500 MG OR CHEW 09/03/2011 Provider: Diagnosis: Last Documented On 1 9:09AM By EDDA XIAO MA ; [facility] Calcium-Vitamin D 600-200 MG-UNIT OR CAPS 09/03/2011 Provider: Diagnosis: Last Documented On 1 9:08AM By EDDA XIAO MA ; [facility] Melatonin 3 MG OR CAPS 09/03/2011 Provider: Diagnosis: Last Documented On 1 9:07AM By EDDA XIAO MA ; [facility] Ambien 10 MG OR TABS 09/03/2011 Provider: Diagnosis: Last Documented On 1 9:06AM By EDDA XIAO MA ; [facility] Aleve 220 MG OR CAPS 09/03/2011 Provider: Diagnosis: Last Documented On 1 9:06AM By EDDA XIAO MA ; [facility] Aspir-Low 81 MG OR TBEC 09/03/2011 Provider: Diagnosis: Last Documented On 1 9:05AM By EDDA XIAO MA ; [facility] Doxycycline Hyclate 50 MG OR CAPS 08/04/2011 Provide r: TORSTEN CROOK MD Diagnosis: Last Documented On 1 9:05AM By EDDA XIAO MA ; [facility] Simvastatin 40 MG OR TABS 08/02/2011 Provider: Diagnosis: Last Documented On 1 9:05AM By EDDA XIAO MA ; [facility] Indapamide 1.25 MG OR TABS 08/02/2011 Provider: Diagnosis: Last Documented On 1 9:05AM By EDDA XIAO MA ; [facility] amLODIPine Besylate 5 MG OR TABS 07/08/2011 Provider : Diagnosis: Last Documented On 1 9:05AM By EDDA XIAO MA ; [facility] metroNIDAZOLE 0.75% EX CREA 05/14/2011 Provider: TORSTEN CROOK MD Diagnosis: Last Documented On 1 9:05AM By EDDA XIAO MA ; [facility] Simvastatin 40 MG OR TABS 08/28/2010 Provider: Diagnosis: Last Documented On 0 3:46PM By EDDA XIAO MA ; [facility] Cozaar 100 MG OR TABS 08/28/2010 Provider: Diagnosis: Last Documented On 0 3:45PM By EDDA XIAO MA ; [facility] Indapamide 1.25 MG OR TABS 08/28/2010 Provider: Diagnosis: Last Documented On 0 3:45PM By EDDA XIAO MA ; [facility] Past Medications on file miSOPROStol 200 MCG OR TABS 09/05/2010 - 09/07/2010 Provider: ARMINDA KEITH M.D. Diagnosis: Abn Glandular Pa p Smear Take one po at 8 am and 8 pm on the day prior to procedure Last Documented On 0 8:55AM By DR. ARMINDA KEITH ; [facility] Medications Administered Includes: Administered Medications from this encounter No Administered Medications Recorded Vital Signs Includes: Vital Signs from this encounter Vital Name 09/16/2010 03:45P Blood Pressure Sitting (mmHg) 130/80 Weight (lb) 227 Last Documented: On 09/16/2010 3:18PM ; [facility] Results Includes: Results discussed during this encounter No Results Recorded For Specified Dates History of Present Illness Includes: History of Present Illness from this encounter No History of Present Illness Recorded Social History Description Last Updated Age of 1st intercourse was was 21 2009 Last Documented On 1 3:11PM ; [facility] In monogamous relationship 08/28/2010 Last Documented On 1 3:11PM ; [facility] Non-smoker 08/28/2010 Last Documented On 1 3:11PM ; [facility] Not using alcohol 08/28/2010 Last Documented On 1 3:11PM ; [facility] Not using drugs 08/28/2010 Last Documented On 1 3:11PM ; [facility] Sexually active 08/28/2010 Last Documented On 1 3:11PM ; [facility] Sexually active with 1 partners in the l ast year 08/28/2010 Last Documented On 1 3:11PM ; [facility] Smoking Status Unknown Procedures and Surgical History Includes: Procedures from this encounter Procedures Code Diagnosis Performing Provider Service L ocation Service Date biopsy was performed Last Documented On 1 3:34PM ; [facility] endometrial biopsy was perfo rmed ~Procedure Note: [...] vault. The patient tolerated the procedure well [id number] Last Documented On 1 3:34PM ; [facility] pathology [id number] Last Documented On 1 3:34PM ; [facility] Surgical History Last Updated No Tonsillectomy 09/03/2011 Last Documented On 1 3:11PM ; [facility] Dilation + Curettage 08/28/2010 Last Documented On 1 3:11PM ; [facility] History of cholecystectomy 08/28/2010 Last Documented On 1 3:11PM ; [facility] No Bilateral salpingo-oophorectomy 08/28 Last Documented On 1 3:11PM ; [facility] No Breast Biopsy 08/28/2010 Last Documented On 1 3:11PM ; [facility] No Ectopic surgery 08/28/2010 Last Documented On 1 3:11PM ; [facility] No Endometrial Ablation 08/28/2010 Last Documented On 1 3:11PM ; [facility] No history of appendectomy 08/28/2010 Last Documented On 1 3:11PM ; [facility] No history of Loop electrode excision of cervix (LEEP) 08/28/2010 Last Documented On 1 3:11PM ; [facility] No history of total abdominal hysterecto my 08/28/2010 Last Documented On 1 3:11PM ; [facility] No history of vaginal hysterectomy 08/28 Last Documented On 1 3:11PM ; [facility] No Laparoscopic Hysterectomy 08/28/2010 Last Documented On 1 3:11PM ; [facility] No Ovarian Cystectomy 08/28/2010 Last Documented On 1 3:11PM ; [facility] Previous colposcopy 08/28/2010 Last Documented On 1 3:11PM ; [facility] History of tubal ligation 08/28/2010 Last Documented On 1 3:11PM ; [facility] Medical History Includes: Medical History addressed during this encounter Description Last Updated Last mammogram date: 200809/03/2011 Last Documented On 1 3:11PM ; [facility] Result: abnormal 09/16/2010 Last Documented On 1 3:39PM ; [facility] Vaginal delivery 08/28/2010 Last Documented On 1 3:11PM ; [facility] History of benign essential hypertension 08/28/2010 Last Documented On 1 3:11PM ; [facility] History of hyperlipidemia 08/28/2010 Last Documented On 1 3:11PM ; [facility] A colonoscopy was performed 08/28/2010 Last Documented On 1 3:11PM ; [facility] 2 08/28/2010 Last Documented On 1 3:11PM ; [facility] LMP: 2004 08/28/2010 Last Documented On 1 3:11PM ; [facility] Para 2 08/28/2010 Last Documented On 1 3:11PM ; [facility] Patient recently had a dexa scan 010 Last Documented On 1 3:11PM ; [facility] Family History Includes: Family History addressed during this encounter Description Last Updated Spouse name: [place] 08/28/2010 Last Documented On 1 3:11PM ; [facility] Family history of hypertension 0 Last Documented On 1 3:11PM ; [facility] Family history of malignant female breas t neoplasm 08/28/2010 Last Documented On 1 3:11PM ; [facility] No family history of diabetes mellitus 1 10/29/2009 Last Documented On 1 3:11PM ; [facility] No family history of hypercholesterolemi a 08/28/2010 Last Documented On 1 3:11PM ; [facility] No family history of malignant neoplasm of the large intestine 08/28/2010 Last Documented On 1 3:11PM ; [facility] No family history of malignant neoplasm of the ovary 08/28/2010 Last Documented On 1 3:11PM ; [facility] No family history of uterine cancer 08/08 Last Documented On 1 3:11PM ; [facility] No heart disease 08/28/2010 Last Documented On 1 3:11PM ; [facility] Review of Systems Includes: Review of Systems [...] Time Diagnosis ENDOMETRIAL BIOPSY ARMINDA KEITH M.D. 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
--- OUTSIDE RECORDS SUMMARY | 2025-01-03 10:25 | XMS_ITS | Clinical Summary ---
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 Active Last Documented On 0 3:46PM ; [facility] HYPERTENSION NOS 08/28/2010 ARMINDA KEITH M.D. Active Last Documented On 0 3:47PM ; [facility] Plan of Treatment - OTHER - Last Documented On 09/03/2011 9:47AM ; [facility] Follow-up 1 YR (SCHEDULE TODAY) - Last Documented On 09/03/2011 9:47AM ; [facility] ? Cervical Pap SmearIn office procedures/*[facility] Waived Labs: Pap Smear Taken - Last Documented On 09/03/2011 9:47AM ; [facility] ? SCREEN MAL NEOP-RECTUMIn office procedures/*[facility]ia Waived Labs: *FIT Test (Fecal Occult Test) - Last Documented On 09/03/2011 9:47AM ; [facility] Pending Tests Order Diagnosis Results Due Ordering P rovider In office procedures - *[facility] Pap Smear Taken SCREEN MAL NEOP-CERVIX 09/17/11 ARMINDA KEITH M.D. Last Documented On 1 9:46AM ; [facility] In office procedures - *[facility] *FIT Test (Fecal Occult Test) SCREEN MAL NEOP-RECTUM 09/17/11 ARMINDA KEITH M.D. Last Documented On 1 9:46AM ; [facility] Lab SUREPATH PAP AND HR HPV DNA 10/03/11 ARMINDA KEITH M.D. Last Documented On 10:06AM ; [facility] Instructions to patient Instructions for patient : B reast Self Exam discussed. Reviewed monthly self breast examination and technique Last Documented On 9:45AM ; [facility] Recommend diet and exercise at least 30 min three times per week Last Documented On 9:45AM ; [facility] Discussed Gardasil vaccinati on and recommend vaccination for HPV prevention. Handout given. Patient undertsands sexual transmission of high-risk HPV and association with abnormal pap smear and cervical cancer. recommend to decrease high risk behaviors such as: number of sexual partners, smoking, and contraceptive use Last Documented On 9:45AM ; [facility] Recommend preventative vacci nation including but not limited to influenza/flu vaccine, DTP, Rubella, Hepatitis B vaccination series Last Documented On 9:45AM ; [facility] Recommend annual pap smear e xamination or every three year if high risk hpv negative and 3 consecutive normal pap examination during preceding three years Last Documented On 9:45AM ; [facility] Recommend TSH, fasting gluco se, fasting lipid panel, CBC, BMP Last Documented On 9:45AM ; [facility] Recommend Calcium supplement ation and weight bearing exercise Last Documented On 9:45AM ; [facility] Recommended Bone Density Last Documented On 9:45AM ; [facility] Recommended Colonoscopy Pt r [...] responsibility regarding scheduling and follow up with pick and shovel man Last Documented On 9:45AM ; [facility] Assessments Includes: Assessments from this encounter Findings - MAMMOGRAM SCREENING - Last Documented On 09/03/2011 9:47AM ; [facility] - NORMAL FEMALE EXAM - Last Documented On 09/03/2011 9:47AM ; [facility] - Asymptomatic postmenopausal status - Last Documented On 09/03/2011 9:47AM ; [facility] - Screening Malig. Neoplasm Rectum - Last Documented On 09/03/2011 9:47AM ; [facility] Instructions Includes: Instructions from this encounter Instructions to patient Instructions for patient : B reast Self Exam discussed. Reviewed monthly self breast examination and technique Last Documented On 9:45AM ; [facility] Recommend diet and exercise at least 30 min three times per week Last Documented On 9:45AM ; [facility] Discussed Gardasil vaccinati on and recommend vaccination for HPV prevention. Handout given. Patient undertsands sexual transmission of high-risk HPV and association with abnormal pap smear and cervical cancer. recommend to decrease high risk behaviors such as: number of sexual partners, smoking, and contraceptive use Last Documented On 9:45AM ; [facility] Recommend preventative vacci nation including but not limited to influenza/flu vaccine, DTP, Rubella, Hepatitis B vaccination series Last Documented On 9:45AM ; [facility] Recommend annual pap smear e xamination or every three year if high risk hpv negative and 3 consecutive normal pap examination during preceding three years Last Documented On 9:45AM ; [facility] Recommend TSH, fasting gluco se, fasting lipid panel, CBC, BMP Last Documented On 9:45AM ; [facility] Recommend Calcium supplement ation and weight bearing exercise Last Documented On 9:45AM ; [facility] Recommended Bone Density Last Documented On 9:45AM ; [facility] Recommended Colonoscopy Pt r [...] responsibility regarding scheduling and follow up with pick and shovel man Last Documented On 9:45AM ; [facility] Medical Equipment - Implanted Devices Includes: Current Devices No Medical Equipment Recorded Medications Includes: Medications discussed during this encounter and other current Medications Current Medications (continue as prescribed) Fish Oil 1000 MG OR CAPS 09/03/2011 Provider: Diagnosis: Last Documented On 1 9:09AM By EDDA XIAO MA ; [facility]S Vitamin C 500 MG OR CHEW 09/03/2011 Provider: Diagnosis: Last Documented On 1 9:09AM By EDDA XIAO MA ; [facility] Calcium-Vitamin D 600-200 MG-UNIT OR CAPS 09/03/2011 Provider: Diagnosis: Last Documented On 1 9:08AM By EDDA XIAO MA ; [facility] Melatonin 3 MG OR CAPS 09/03/2011 Provider: Diagnosis: Last Documented On 1 9:07AM By EDDA XIAO MA ; [facility] Ambien 10 MG OR TABS 09/03/2011 Provider: Diagnosis: Last Documented On 1 9:06AM By EDDA XIAO MA ; [facility] Aleve 220 MG OR CAPS 09/03/2011 Provider: Diagnosis: Last Documented On 1 9:06AM By EDDA XIAO MA ; [facility] Aspir-Low 81 MG OR TBEC 09/03/2011 Provider: Diagnosis: Last Documented On 1 9:05AM By EDDA XIAO MA ; [facility] Doxycycline Hyclate 50 MG OR CAPS 08/04/2011 Provide r: TORSTEN CROOK MD Diagnosis: Last Documented On 1 9:05AM By EDDA XIAO MA ; [facility] Simvastatin 40 MG OR TABS 08/02/2011 Provider: Diagnosis: Last Documented On 1 9:05AM By EDDA XIAO MA ; [facility] Indapamide 1.25 MG OR TABS 08/02/2011 Provider: Diagnosis: Last Documented On 1 9:05AM By EDDA XIAO MA ; [facility] amLODIPine Besylate 5 MG OR TABS 07/08/2011 Provider : Diagnosis: Last Documented On 1 9:05AM By EDDA XIAO MA ; [facility] metroNIDAZOLE 0.75% EX CREA 05/14/2011 Provider: TORSTEN CROOK MD Diagnosis: Last Documented On 1 9:05AM By EDDA XIAO MA ; [facility] Simvastatin 40 MG OR TABS 08/28/2010 Provider: Diagnosis: Last Documented On 0 3:46PM By EDDA XIAO MA ; [facility] Cozaar 100 MG OR TABS 08/28/2010 Provider: Diagnosis: Last Documented On 0 3:45PM By EDDA XIAO MA ; [facility] Indapamide 1.25 MG OR TABS 08/28/2010 Provider: Diagnosis: Last Documented On 0 3:45PM By EDDA XIAO MA ; [facility] Past Medications on file miSOPROStol 200 MCG OR TABS 09/05/2010 - 09/07/2010 Provider: ARMINDA KEITH M.D. Diagnosis: Abn Glandular Pa p Smear Take one po at 8 am and 8 pm on the day prior to procedure Last Documented On 0 8:55AM By DR. ARMINDA KEITH ; [facility] Medications Administered Includes: Administered Medications from this encounter No Administered Medications Recorded Vital Signs Includes: Vital Signs from this encounter Vital Name 09/03/2011 09:00A Blood Pressure Sitting (mmHg) 130/80 Height (in) 69 Weight (lb) 216 Body Mass Index (kg/m2) 31.9 Body Surface Area (m2) 2.1 Last Documented: On 09/03/2011 9:11AM ; [facility] Results Includes: Results discussed during this encounter No Results Recorded For Specified Dates History of Present Illness Includes: History of Present Illness from this encounter SHREYAS HIGGINS is a 60 year old female. - No complaints. Social History Description Last Updated Age of 1st intercourse was was 21 2009 Last Documented On 1 9:11AM ; [facility] In monogamous relationship 08/28/2010 Last Documented On 1 9:11AM ; [facility] Non-smoker 08/28/2010 Last Documented On 1 9:11AM ; [facility] Not using alcohol 08/28/2010 Last Documented On 1 9:11AM ; [facility] Not using drugs 08/28/2010 Last Documented On 1 9:11AM ; [facility] Sexually active 08/28/2010 Last Documented On 1 9:11AM ; [facility] Sexually active with 1 partners in the l ast year 08/28/2010 Last Documented On 1 9:11AM ; [facility] Smoking Status Unknown Procedures and Surgical History Includes: Procedures from this encounter Procedures Code Diagnosis Performing Provider Service L ocation Service Date cervical Pap smear 62807 Last Documented On 1 9:45AM ; [facility] a fecal occult blood test was negative 96168 Last Documented On 1 9:45AM ; [facility] Surgical History Last Updated Tonsillectomy 09/03/2011 Last Documented On 1 9:47AM ; [facility] Dilation + Curettage 08/28/2010 Last Documented On 1 9:11AM ; [facility] History of cholecystectomy 08/28/2010 Last Documented On 1 9:11AM ; [facility] No Bilateral salpingo-oophorectomy 08/28 Last Documented On 1 9:11AM ; [facility] No Breast Biopsy 08/28/2010 Last Documented On 1 9:11AM ; [facility] No Ectopic surgery 08/28/2010 Last Documented On 1 9:11AM ; [facility] No Endometrial Ablation 08/28/2010 Last Documented On 1 9:11AM ; [facility] No history of appendectomy 08/28/2010 Last Documented On 1 9:11AM ; [facility] No history of Loop electrode excision of cervix (LEEP) 08/28/2010 Last Documented On 1 9:11AM ; [facility] No history of total abdominal hysterecto my 08/28/2010 Last Documented On 1 9:11AM ; [facility] No history of vaginal hysterectomy 08/28 Last Documented On 1 9:11AM ; [facility] No Laparoscopic Hysterectomy 08/28/2010 Last Documented On 1 9:11AM ; [facility] No Ovarian Cystectomy 08/28/2010 Last Documented On 1 9:11AM ; [facility] Previous colposcopy 08/28/2010 Last Documented On 1 9:11AM ; [facility] History of tubal ligation 08/28/2010 Last Documented On 1 9:11AM ; [facility] Medical History Includes: Medical History addressed during this encounter Description Last Updated Last mammogram date: 05/04/2011 1 Last Documented On 1 9:47AM ; [facility] Last pap smear date 09/03/2010 1 Last Documented On 1 9:47AM ; [facility] Result: abnormal 09/16/2010 Last Documented On 1 9:11AM ; [facility] Vaginal delivery 08/28/2010 Last Documented On 1 9:11AM ; [facility] History of benign essential hypertension 08/28/2010 Last Documented On 1 9:11AM ; [facility] History of hyperlipidemia 08/28/2010 Last Documented On 1 9:11AM ; [facility] A colonoscopy was performed 08/28/2010 Last Documented On 1 9:11AM ; [facility] 2 08/28/2010 Last Documented On 1 9:11AM ; [facility] LMP: 2004 08/28/2010 Last Documented On 1 9:11AM ; [facility] Para 2 08/28/2010 Last Documented On 1 9:11AM ; [facility] Patient recently had a dexa scan 010 Last Documented On 1 9:11AM ; [facility] Family History Includes: Family History addressed during this encounter Description Last Updated Spouse name: [place] 08/28/2010 Last Documented On 1 9:11AM ; [facility] Family history of hypertension 0 Last Documented On 1 9:11AM ; [facility] Family history of malignant female breas t neoplasm 08/28/2010 Last Documented On 1 9:11AM ; [facility] No family history of diabetes mellitus 1 10/29/2009 Last Documented On 1 9:11AM ; [facility] No family history of hypercholesterolemi a 08/28/2010 Last Documented On 1 9:11AM ; [facility] No family history of malignant neoplasm of the large intestine 08/28/2010 Last Documented On 1 9:11AM ; [facility] No family history of malignant neoplasm of the ovary 08/28/2010 Last Documented On 1 9:11AM ; [facility] No family history of uterine cancer 08/08 Last Documented On 1 9:11AM ; [facility] No heart disease 08/28/2010 Last Documented On 1 9:11AM ; [facility] Review of Systems Includes: Review [...] Date Check-In Time Check-Out Time Diagnosis 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 Neoplasm Rectum,Asymptomat ic Postmenopausal Status Clinical Notes Includes: Clinical Notes from this encounter No Clinical Notes Recorded
--- OUTSIDE RECORDS SUMMARY | 2025-01-03 10:25 | XMS_ITS | Data Portability ---
Author Organization [place] [facility] [place] [facility], Main Office Address [address] [place] [address] Care Team Providers Care Glue Maker Name Role Phone LEEANNA MINA Primary Care Provider [phone] LEEANNA IMNA Referring Provider Assessment Encounter Date Assessment Date Assessment LastModified by Organization Details LastModified Time 11/06/2022 11/06/2022 HPI: Patient returns. She is now 15 days out from left total knee arthroplasty. Overall she feels she is doing very well. Pain is very tolerable. She is starting to wean down off of the narcotics. She is doing outpatient therapy At our [place] office. Physical exam: Patient's incision is well [...] more than half the time spent in xozu-wa-jagi care. [email or web address] Not available 10/24/2023 13:13:24 Plan of Treatment Reminders Order Date Submit Date Provider Last Modified By Organization Details Last Modified Time Details Appointments None record ed. Lab None record ed. Referral None record ed. Procedures None record ed. Surgeries None record ed. Imaging XR, knee 024 10/22/19 24 [email or web address] s_[facility], [address], [place], [address], 4 12:29:27 XR, knee 023 12/05/19 23 [email or web address] s_gmg [facility], [address] [place] [address], [place], [address], 3 13:34:52 Medication Orders None record ed. Patient TargetsNo targets recorded. Patient InstructionsNo instructions recorded. Reason for Referral None Reported. Results Created Date Observation Date Name Description Value Unit Range Abnormal Flag Note LastModifiedBy Organization Detail LastModifiedTime 08/28/20 22 XR, pelvi s No observ ation record ed. [id number] [facility]gmc_g[facility] [address], [place], [address], 11/05/2022 10:47:53 08/28/20 22 XR, knee No observ ation record ed. [id number] [facility]_g[facility] [address], [place], [address], 11/05/2022 10:47:53 10/15/19 23 10/06/2022 katie millard am No observ ation record ed. [id number] Not Available 11/05/2022 10:47:53 10/22/19 23 10/22/2022 XR, knee No observ ation record ed. [id number] [place] [address], [place], [address], 11/05/2022 10:47:53 11/25/19 23 11/24/2022 DEXA, axial skele ton [facility] [address], [place] [address] Patien t Name: TONY ZHENG Access ion #: [id number] Sex: F : 1950 8 Locati [...] e of 0.8. Page 1 of 2 [facility] Radha gonzalez Name: TONY ZHENG Access ion #: [id number] Sex: F : 1950 8 Exam [...] 2:35 PM (CT) Page 2 of 2 [email or web address] [facility] (Imaging) [address], [place], [address], 11/25/2022 12:18:15 12/05/19 23 XR, knee No observ ation record ed. s_gmg [address], [place], [address], 12/04/2022 11:31:05 10/22/19 24 XR, knee No observ ation record ed. [email or web address] s_gmg [address], [place], [address], 10/24/2023 13:12:09 Result Notes None recorded. Problems Name Problem SNOMED Code Status Onset Date Resolution Date Notes Provider Name and Address Organization Details Recorded Time Bilateral foot drop 6819841231760 9103 Active 2021 Not Available [facility] 3 11:45:48 Radiothera py follow-up 621113996 Active Not Available [facility] 3 11:45:48 Unable to cut own toenails 444193382 Active 2021 Not Available [facility] 3 11:45:48 Neuropathy 030531290 Active 2021 Not Available [facility] 3 11:45:48 Osteoarthr itis 111331423 Active Not Available [facility] 3 11:45:48 Pain of left knee joint 5134770503906 07 Active 2021 Not Available [facility] 3 11:45:48 Dystrophia unguium 37873889 Active 2021 Not Available [facility] 3 11:45:48 Osteoarthr itis of left knee joint 5065758841314 09 Active 2022 Not Available [facility] 11:45:48 Problem Notes None recorded. Procedures Surgical History Date Name Laterality Status Provider Name and Address Organization Details Recorded Time Knee Surgery completed Not Available [facility] 11/05/2022 10:41:35 Tubal Ligation completed Not Available [facility] 11/05/2022 10:41:35 procedure on gallbladder completed Not Available [facility] 11/05/2022 10:41:35 parathyroidectomy completed Not Available [facility] 11/05/2022 10:41:35 operation on vagina completed Not Available [facility] 11/05/2022 10:41:35 decompression of lumbar spine completed Not Available [facility] 11/05/2022 10:41:35 Imaging Results Imaging Date Name Status LastModified by Organization Details LastModified Time 08/28/2022 XR, pelvis completed [id number] [facility] [address], [address], 11/05/2022 10:47:53 08/28/2022 XR, knee completed [id number] [facility] [address], [place], [address], 11/05/2022 10:47:53 10/06/2022 electrocardiogram completed [id number]. [id number] Information not available 11/05/2022 10:47:53 10/22/2022 XR, knee completed [id number] [facility] [address] [address], [place], [address], 11/05/2022 10:47:53 11/24/2022 DEXA, axial skeleton completed [email or web address] [facility] (Imaging) [address], [place], [address], 11/25/2022 12:18:15 12/04/2022 XR, knee completed [facility] [address], [place], [address], 12/04/2022 11:31:05 10/22/2023 XR, knee completed [email or web address] s[facility] [address], [place], [address], 10/24/2023 13:12:09 Procedure Notes None recorded. Medical Equipment None Reported. Allergies Allergen ID Allergen Name Allergen Category Reaction Reaction Severity Criticality Documentation Date Start Date Code Code System Note Provider Name and Address Organization Details Recorded Time 42119 watermelo n preparati on food Not available Not available Not available 11/05/2022 88658 4 RxNorm Not Available [facility] 3 10:47:35 02243 spironola ctone medicatio n Not available Not available Not available 11/05/2022 9997 RxNorm Not Available [facility] 3 10:47:35 91832 omega-3 acid ethyl esters (SKILLED NURSING) medicatio n Not available Not available Not available 11/05/2022 59828 8 RxNorm Not Available [facility] 3 10:47:35 65974 nickel environme nt Not available Not available Not available 11/05/2022 32824 29 RxNorm Not Available [facility] 3 10:47:35 42514 Mucinex medicatio n Not available Not available Not available 11/05/2022 29545 7 RxNorm Not Available [facility] 3 10:47:35 61960 lisinopri l medicatio n cough Not available Not available 11/05/2022 16282 RxNorm Not Available [facility] 3 10:47:35 93440 erythrito l Not available Not available Not available Not available 11/05/2022 62605 63 RxNorm Not Available [facility] 3 10:47:35 71373 amlodipin e medicatio n Not available Not available Not available 11/05/2022 20673 RxNorm Not Available [facility] 3 10:47:35 Medications Name Sig Start Date [...] Updated DateTime 08/28/2022 172.72 cm Not Available [facility] 10:43:54 Date Recorded Body height Provider Name an d Address Organization Details Last Updated DateTime 11/06/2022 172.72 cm YVES Guzman [facility] [employer] 11/06/2022 11:15:19 Date Recorded Body height Provider Name an d Address Organization Details Last Updated DateTime 11/20/2022 172.72 cm YVES Guzman [facility] [employer] [facility] 11/20/2022 11:58:47 Date Recorded Body height Provider Name an d Address Organization Details Last Updated DateTime 12/04/2022 172.72 cm YVES Guzman [place] [facility] [employer] 12/04/2022 10:53:01 Date Recorded Body height Body mass index (BMI) Body weight Provider Name and Address Organization Details Last Updated DateTime 10/22/2023 170.18 cm 32.3 kg/m2 95102.03 g YVES Guzman [place] [facility] [employer] 10/22/2023 11:32:44 Social History Question Answer Notes LastModified by Organizat ion Details LastModified Time Tobacco Smoking Status Never Smoker Not Available [facility] 11/05/2022 10:41:21 What Is Your Level Of Alcohol Consumption? Occasional [id number] Information not available 11/05/2022 What Is Your Level Of Caffeine Consumption? Occasional [id number] Information not available 11/05/2022 What Was The Date Of Your Most Recent Tobacco Screening? 10/21/2021 [id number] Information not available 11/05/2022 Have You Ever Been Counseled For Unhealthy Alcohol Use? No [id number] Information not available 11/05/2022 Do You Use Any Illicit Or Recreational Drugs? No [id number] 035 Information not available 11/05/2022 Has Tobacco Cessation Counseling Been Provided? No [id number] 035 Information not available 11/05/2022 Do You Or Have You Ever Used Any Other Forms Of Tobacco Or Nicotine? No [id number].[id number] 035 Information not available 11/05/2022 Sex: Unknown Functional Status None recorded. Mental Status None recorded. Family History Relationship Description Onset Age of this Age Resolved Age Notes LastModified by Organization Details LastModified Time Mother Heart disease [id number] Not available 11/05/2022 10:41:39 Mother Family history of malignant neoplasm [id number].[id number] Not available 11/05/2022 10:41:39 Father Family history of malignant neoplasm [id number].[id number] Not available 11/05/2022 10:41:39 Father Hypertensive disorder [id number] Not available 11/05/2022 10:41:39 Paternal Grandmother Family history of stroke [id number].[id number] Not available 11/05/2022 10:41:39 Paternal Grandmother Heart disease MIGRATION.504 [id number] Not available 11/05/2022 10:41:39 Medical History Condition Response BLINDNESS N KIDNEY STONES N MRSA N CARPAL TUNNEL SYNDROME N LUNG DISEASE/DISORDER N HISTORY OF DRUG ABUSE N RADIATION / CHEMOTHERAPY N COPD N SPORTS INJURY N ANKLE PAIN N BLOOD DISEASES N SCHIZOPHRENIA N SHINGLES N SHOULDER PAIN N DEPRESSION (INCLUDING POST ) N BOWEL PROBLEMS N STROKE/TIA N ULCERS N KNEE PAIN N BENIGN PROSTATIC HYPERPLASIA N OBESITY Y GERD/NAUSEA N ANEURYSM N URINARY/BLADDER/KIDNEY PROBLEMS N CORONARY ARTERY DISEASE (CAD) N ADDICTION CONCERNS N USE OF BLOOD THINNERS N SKIN PROBLEMS Y EMPHYSEMA N MUSCLE,JOINT OR BONE PROBLEMS N DVT N STOMACH ULCERS N BLOOD CLOTS N USE OF NSAIDS N CONCUSSION OR SPINAL TRAUMA Y NEUROPATHY N AIDS/HIV N FRACTURES N HYPERTENSION Y ELBOW PAIN N TOURETTE'S N Metal allergy N ANXIETY DISORDER N BLOOD TRANSFUSION N ANEMIA/BLOOD DISORDER N BIPOLAR DISORDER N BRONCHITIS N OSTEOARTHRITIS N TUBERCULOSIS N FOOT PROBLEM N HEART VALVE DISORDERS N ALLERGIES/HAYFEVER Y SOFT TISSUE INJURY N INFECTIOUS DISEASE N HEART ARRHYTHMIA N INSOMNIA N HIGH CHOLESTEROL / HYPERLIPIDEMIA Y RHEUMATOID ARTHRITIS N EDEMA N CHRONIC PAIN SYNDROME N CAROTID BLOCKAGE N BACK / NECK PROBLEMS Y HAVE YOU BEEN HOSPITALIZED OR SEEN IN [facility] IN THE PAST YEAR ? N BURSITIS N HERNIATED DISC N DIALYSIS N FIBROMYALGIA N OSTEOPOROSIS N ARTHRITIS Y NO SIGNIFICANT PAST MEDICAL HISTORY N PERIPHERAL NEUROPATHY N DIABETES, TYPE N HEARTBURN / REFLUX N HEPATITIS / LIVER DISEASE N GOUT N ALZHEIMER'S DISEASE N SLEEP DISORDER N HERPES N HEADACHES/MIGRAINES Y SEIZURES/EPILEPSY N VASCULAR DISEASE N Blood Disorder N HIP PAIN N DIZZINESS N HEAD TRAUMA OR INJURY N HEART DISEASE/HEART PROBLEMS N MULTIPLE SCLEROSIS N CANCER: SPECIFY N CARDIAC ARRHYTHMIA N ANESTHESIA COMPLICATIONS N ATRIAL FIBRILLATION N AUTOIMMUNE DISEASE N Gynecological HistoryNo gynecological history recorded. Obstetrics History GPAL:G 0 P 0 0 0 0 Past Encounters Encounter ID Performer Location Encounter Start Date Encounter Closed Date Diagnosis/Indication Diagnosis SNOMED-CT Code Diagnosis ICD10 Code Diagnosis Note [id number] [facility] [address] [address] 04/25/2021 00:00:00 05/05/2021 20:23:20 [id number] [facility] [address] [address] 05/02/2021 00:00:00 05/18/2021 14:30:01 [id number] [facility] [place] [address] [facility] [address] [facility] [address] [place] [address] 10/21/2021 00:00:00 10/21/2021 13:13:14 [id number] [facility] [place] [address] [place] [address] 11/21/2021 00:00:00 11/21/2021 17:04:01 [id number] [facility] [place] [address] [facility] [address] [facility] [address] [place] [address] 01/27/2022 00:00:00 01/27/2022 10:08:03 [id number] [facility] [place] [address] [facility] [address] [facility] [address] [place] [address] 04/28/2022 00:00:00 04/28/2022 10:13:52 [id number] [facility] [address] [place] [address] 08/28/2022 00:00:00 08/28/2022 16:39:59 [id number] IWONA Matias [facility] [address] [place] [address] 11/06/2022 11:13:13 11/06/2022 12:05:42 Osteoarthritis of left knee joint 4255656287 09653 M17.12 [id number] IWONA Matias [facility] [address] [place] [address] 11/20/2022 11:54:48 11/20/2022 12:58:24 Osteoarthritis of left knee joint 5704043591 53273 M17.12 [id number] IWONA Matias [facility] [address] [place] [address] 12/04/2022 10:50:10 12/04/2022 11:45:56 Osteoarthritis of left knee joint 4152164369 90985 M17.12 [id number] Anand Sims MD [facility] [address] [place] [address] 10/22/2023 10:43:17 10/26/2023 12:29:27 History of left total knee replacement 5981560961 751505 Z96.652 Health Concerns Section Related Observation LastModified by Organization Detai ls LastModified Time None Recorded Concern Status LastModified by Organization Details LastModified Time None Recorded Advance Directives Directive None Recorded Payers Encounter Date Sequence Insurance Name Policy Number Policy Hays Covered Member ID Hays Member ID Guarantor Name 11/06/2022 1 [place] Terri Zheng [id number] Terri Marce 11/06/2022 2 [facility] HEALTH BENEFIT PLAN 32 Em Zheng [id number] Terri Marce 11/20/2022 1 [place] Terri Winter [place] [id number] Terri Marce 11/20/2022 2 [facility] HEALTH BENEFIT PLAN 32 Em Zheng [id number] Terri Marce 12/04/2022 1 [place] Terri Zheng [id number] Terri Marce 12/04/2022 2 [facility] HEALTH BENEFIT PLAN 32 Em Zheng [id number] Terri Marce 10/22/2023 1 [place] Terri Zheng [id number] Terri Marce 10/22/2023 2 [facility] HEALTH BENEFIT PLAN 32 Em Zheng [id number] Terri Marce Notes Date Note Type Note Provider Name [...] of discomfort left knee. Anand Sims MD [address] [place] [address], [place] [address], [place], [address], [place] [facility] 10/24/2023 13:13:39 OBGyn Episode No OBEpisode recorded.
--- OUTSIDE RECORDS SUMMARY | 2025-01-03 10:25 | XMS_ITS | Clinical Summary ---
Author Organization [facility] al Address [address] [place] [address] Care Team Providers Care Sales Operations Consultant Name Role Phone Skinny Zarate MD Primary Care Provider [phone] Allergies Active Allergy Reactions Criticality Noted Date Comments Amlodipine Headache,Palpitatio ns Low 09/18/2023 Enalapril Other (See comments) Reaction: Unknown, Guaifenesin Other (See comments) Reaction: OTHER, Lisinopril Cough Low 09/18/2023 Losartan Nickel Rash Medium 09/18/2023 [place] 1-Ibl-Fts-Fish Oil Headache Low 09/18/2023 Spironolactone Joint pain Low 09/18/2023 Watermelon Headache Low 09/18/2023 Medications naproxen (ALEVE) 220 mg tablet TAKE 1 TABLET 3 TIMES DAILY NEEDED. 7 Active diphenhydrAMINE (BENADRYL) 25 mg capsule TAKE 1 TABLET EVERY 4 HOURS NEEDED. 7 Active coenzyme Q10 (CO Q-10) 200 mg capsule TAKE ONE CAPSULE DAILY 7 Active valsartan (DIOVAN) 40 mg tablet daily. 7 Active omega 6-yxa-tit-fish oil 300-1,000 mg capsule TAKE ONE CAPSULE DAILY 7 Active indapamide (LOZOL) 1.25 mg tablet daily. 7 Active SOOLANTRA 1 % cream APPLY 1 APPLICATION TO THE AFFECTED AREA(S) ON THE FACE DAILY 5 9 Active melatonin tablet TAKE DIRECTED. 7 Active neomycin-polymy jeremiah B-dexameth (POLYDEX) 3.5 mg/g-10,000 unit/g-0.1 % ointment APPLY A THIN LAYER ON THE EYELID TWICE A DAY 4 8 Active glucosamine-D3- [place]well[place] serr (OSTEO BI-FLEX, 5-LOXIN,) 1,500-400-100 mg-unit-mg tablet daily. 7 Active simvastatin (ZOCOR) 40 mg tablet daily. 7 Active spironolactone (ALDACTONE) 100 mg tablet Take 1 tablet (100 mg total) by mouth daily 3 9 Active calcium carbonate (OS-GABINO) 750 mg (300 mg of elemental calcium) tablet,chewable CHEW AND SWALLOW 2 TABLETS 3 TIMES A DAY. 7 Active ascorbic acid (VITAMIN C) 1,000 mg tablet daily. 7 Active cholecalciferol (VITAMIN D-3) 50,000 unit capsule TAKE ONE CAPSULE ONCE A WEEK 7 Active acetaminophen (TYLENOL) 325 mg tablet 2 tablets (650 mg total) 1 Active docusate sodium (Colace) 100 mg capsule 1 capsule (100 mg total) 1 Active ergocalciferol (VITAMIN D) 50,000 unit capsule 50,000 unit(s), 1 capsule(s), Oral, q7days, Capsule(s) 1 Active olmesartan (BENICAR) 20 mg tablet Take 1 tablet (20 mg total) by mouth daily Active traMADoL (Ultram) 50 mg tablet 1 tablet (50 mg total) 1 Active Active Problems Problem Noted Date Diagnosed Date Hyperparathyroidism 01/01/2017 Hypertension 01/26/2012 Overview (12/12/2016): HYPERTENSION NOS Hyperlipidemia 04/14/2011 Overview (12/10/2016): HYPERLIPIDEMIA NEC/NOS Anxiety state 04/14/2011 Overview (12/11/2016): ANXIETY STATE NOS Insomnia 04/14/2011 Overview (12/11/2016): INSOMNIA NEC Osteoarthritis 04/14/2011 Overview (12/11/2016): OSTEOARTHROS NOS-UNSPEC Immunizations Immunization Administration Dates Next Due Influenza, Split 07/17/2011,06/07/2010 Influenza, Trivalent, Split, Preservative Free, Intradermal 07/30/2013,05/29/2012 Td, adsorbed 09/07/1996 Tdap 09/07/2005 ZOSTER LIVE 03/14/2011 Surgical History Surgery Date Site/Laterality Comments KNEE ARTHROSCOPY Arthroscopy knee TUBAL LIGATION Bilateral tubal ligation Medical History Medical History Date Comments Hx Other Medical Fracture Left C lavicle Family History Medical History Relation Name Comments Alcohol abuse Brother Alcoholism; Cancer Father 2 Family history of malignant neoplasm - (Added by TW Conv) Hyperlipidemia Father 2 Hyperlipidemi a; Hypertension Father 2 Family history of hypertension - (Added by TW Conv) Other Father 2 Chronic lymphoc ytic leukemia; Cause of : Chronic lymphocytic leukemia Atrial fibrillation Mother 2 Atrial F ibrillation; Cancer Mother 2 Family history of malignant neoplasm - (Added by TW Conv) Hyperlipidemia Mother 2 Hyperlipidemi a; Hypertension Mother 2 Family history of hypertension - (Added by TW Conv) Mitral valve prolapse Mother 2 Multip le Myeloma; Cause of : Multiple Myeloma Osteoporosis Mother 2 Osteoporosis; Other Sister 2 Alive and well; Relation Name Status Comments Brother Father 1 Father 2 Mother 1 Mother 2 Sister 1 Alive Sister 2 Social History Tobacco Use Types Packs/Day Years Used Date Smoking Tobacco: Never Smokeless Tobacco: Never Tobacco Cessation:Counseling Given: Not Answered Alcohol Use Standard Drinks/Week Comments Yes 0 (1 standard drink = 0.6 oz pur e alcohol) Comments Unknown Sex and Gender Information Value Date Recorded Sex Assigned at Not on file Legal Sex Female 4:59 PM [employer] Gender Identity Not on file Sexual Orientation Not on file Obstetrics History Last Filed Vital Signs Vital Sign Reading Time Taken Comments Blood Pressure 144/82 09/18/2023 8:46 AM [employer] Pulse 104 09/18/2023 8:46 AM [employer] Temperature - - Respiratory Rate - - Oxygen Saturation 97% 09/18/2023 8:46 AM [employer] Inhaled Oxygen Concentration - - Weight 89.4 kg (197 lb) 09/18/2023 8:46 AM [employer] Height 172.7 cm (5' 8 ) 09/18/2023 8:46 AM [employer] Body Mass Index 29.95 09/18/2023 8:46 AM [employer] Plan of Treatment Health Maintenance Due Date Last Done Comments Breast Cancer Screening-Mammogram 1950 Colon Cancer Screening-Colonoscopy 1950 Depression Screening 1950 Fall Risk Assessment 1950 Hepatitis C Screening 1950 Osteoporosis Screening-Bone Density Scan 1950 Hepatitis B Screening 1968 Pneumococcal vaccine 65+ (1 of 1 - PCV) 2000 Zoster Vaccine (2 of 3) 05/09/2011 03/14/2011 DTaP/Tdap/Td Vaccine (2 - Td or Tdap) 09/07/2015 09/07/2005, 09/07/1996 Well Visit 65+ 11/24/2015 Influenza Vaccine (Season Ended) 2025 07/30/2013, 05/29/2012, 07/17/2011, Additional history exists Insurance MEDICARE [facility] HEALTH BENEFIT PLAN MEDICARE [facility] Address: [place] [phone] HEALTH BENEFIT PLAN Care Teams Sales Operations Consultant Relationship Specialty Start Date End Date Skinny Zarate MD [address] [facility] [address] [place] [address] PCP - General 03/12/17
--- OUTSIDE RECORDS SUMMARY | 2025-01-03 10:25 | XMS_ITS | Clinical Summary ---
Author Organization [facility] Address [address] [place] [address] Phone Care Team Providers Care Credit Reporting Clerk Name Role Phone Unavailable Unavailable Unavailable Reason for Visit and Chief Complaint GENERAL OFFICE VISIT Problems Includes: Problems addressed during this encounter and other active Problems All Visits Onset Date Resolved Date Provider Condition S tatus HYPERLIPIDEMIA NEC/NOS 08/28/2010 BARRETT KEITH M.D. Active Last Documented On 0 3:46PM ; [facility] HYPERTENSION NOS 08/28/2010 ARMINDA KEITH M.D. Active Last Documented On 0 3:47PM ; [facility] Plan of Treatment No Plan of Treatment Recorded Assessments Includes: Assessments from this encounter No Assessments Recorded Medical Equipment - Implanted Devices Includes: Current Devices No Medical Equipment Recorded Medications Includes: Medications discussed during this encounter and other current Medications Current Medications (continue as prescribed) Fish Oil 1000 MG OR CAPS 09/03/2011 Provider: Diagnosis: Last Documented On 1 9:09AM By EDDA XIAO MA ; [facility] Vitamin C 500 MG OR CHEW 09/03/2011 Provider: Diagnosis: Last Documented On 1 9:09AM By EDDA XIAO MA ; [facility] Calcium-Vitamin D 600-200 MG-UNIT OR CAPS 09/03/2011 Provider: Diagnosis: Last Documented On 1 9:08AM By EDDA XIAO MA ; [facility] Melatonin 3 MG OR CAPS 09/03/2011 Provider: Diagnosis: Last Documented On 1 9:07AM By EDDA XIAO MA ; [facility] Ambien 10 MG OR TABS 09/03/2011 Provider: Diagnosis: Last Documented On 1 9:06AM By EDDA XIAO MA ; [facility] Aleve 220 MG OR CAPS 09/03/2011 Provider: Diagnosis: Last Documented On 1 9:06AM By EDDA XIAO MA ; [facility] Aspir-Low 81 MG OR TBEC 09/03/2011 Provider: Diagnosis: Last Documented On 1 9:05AM By EDDA XIAO MA ; [facility] Doxycycline Hyclate 50 MG OR CAPS 08/04/2011 Provide r: TORSTEN CROOK MD Diagnosis: Last Documented On 1 9:05AM By EDDA XIAO MA ; [facility] Simvastatin 40 MG OR TABS 08/02/2011 Provider: Diagnosis: Last Documented On 1 9:05AM By EDDA XIAO MA ; [facility] Indapamide 1.25 MG OR TABS 08/02/2011 Provider: Diagnosis: Last Documented On 1 9:05AM By EDDA XIAO MA ; [facility] amLODIPine Besylate 5 MG OR TABS 07/08/2011 Provider : Diagnosis: Last Documented On 1 9:05AM By EDDA XIAO MA ; [facility] metroNIDAZOLE 0.75% EX CREA 05/14/2011 Provider: TORSTEN CROOK MD Diagnosis: Last Documented On 1 9:05AM By EDDA XIAO MA ; [facility] Simvastatin 40 MG OR TABS 08/28/2010 Provider: Diagnosis: Last Documented On 0 3:46PM By EDDA XIAO MA ; [facility] Cozaar 100 MG OR TABS 08/28/2010 Provider: Diagnosis: Last Documented On 0 3:45PM By EDDA XIAO MA ; [facility] Indapamide 1.25 MG OR TABS 08/28/2010 Provider: Diagnosis: Last Documented On 0 3:45PM By EDDA XIAO MA ; [facility] Medications Administered Includes: Administered Medications from this encounter No Administered Medications Recorded Results Includes: Results discussed during this encounter No Results Recorded For Specified Dates History of Present Illness Includes: History of Present Illness from this encounter No History of Present Illness Recorded Social History No Social History Recorded - Smoking Status Unknown Medical History Includes: Medical History addressed during this encounter No Medical History Recorded Family History Includes: Family History addressed during this encounter No Family History Recorded Review of Systems Includes: Review of Systems from this encounter No Review of Systems Recorded Mental Status Includes: Mental Status from this encounter No Mental Status Recorded Functional Status Includes: Functional Status from this encounter No Functional Status Recorded Physical Exam Includes: Physical Exam from this encounter No Physical Exam Recorded Allergies Includes: Active Allergies No Known Allergies Clinical Notes Includes: Clinical Notes from this encounter No Clinical Notes Recorded
--- OUTSIDE RECORDS SUMMARY | 2025-01-03 10:25 | XMS_ITS | Clinical Summary ---
Author Organization [facility] Address [address] [place] [address] Phone Care Team Providers Care Restaurant Crew Name Role Phone Nii Mccollum DO Primary Care Provider [phone] Allergies Active Allergy Reactions Criticality Noted Date Comments Amlodipine Headache,Other (See Comments),Rash,Palp itations Low 09/18/2023 Spenser Seed Oil-[place] 3-6-9 Headache Low 09/13/2024 Enalapril Other (See Comments) 09/15/2024 Reaction: Unknown, Erythritol Diarrhea,Other (See Comments) Low 09/15/2024 Severe major depression, single episode, without psychotic features Guaifenesin Other (See Comments),Delirium Medium 09/15/2024 Reaction: OTHER, Losartan Unknown 09/15/2024 Nickel Rash Medium 09/18/2023 Spironolactone Muscle Pain,Other (See Comments) Low 09/18/2023 Watermelon Headache,Unknown Low 09/13/2015 Medications magnesium aspart,citrate, oxide 400 mg magnesium Capsule 5 Active ascorbic acid, vitamin C, (Vitamin C With Trena Hips) 1,000 mg Tablet Sustained Release 5 Active famotidine/Ca carb/mag hydrox (PEPCID COMPLETE ORAL) 5 Active alpha lipoic acid 600 mg Tablet 5 Active olmesartan (BENICAR) 20 mg tablet Take 20 mg by mouth daily. Active OTHER OLMESARTAN MEDOXOMIL 20 MG daily Active Active Problems Problem Noted Date Diagnosed Date Arthralgia of left knee 08/27/2022 Dystrophia unguium 10/20/2021 Encounter for other specified special examinatio ns 07/27/2021 Foot drop 03/13/2021 Overview (09/15/2024): Unable to drive a car without hand held equipment Anxiety state 04/14/2011 Overview (09/15/2024): ANXIETY STATE NOS High cholesterol 11/12/1999 Encounters Date Type Department Care Team Description 2024 External Device Data STL ABSTRACTION Provider, Abstract 11/12/2024 External Device Data STL ABSTRACTION Provider, Abstract 11/11/2024 External Device Data STL ABSTRACTION Provider, Abstract 11/08/2024 External Device Data STL ABSTRACTION Provider, Abstract 10/25/2024 External Device Data STL ABSTRACTION Provider, Abstract 10/13/2024 2:30 PM 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 Office Visit [facility] [place] [address] [place] [address] Sadiq Yun MD Chronic anemia (Primary Dx) from Last 3 Months Family History Medical History Relation Name Comments No Known Problems Brother 1 Blood Disorder Father Chronic [facility] High Cholesterol Father Hypertension Father Other Father Breast Cancer Maternal Grandmother Blood Disorder Mother Multiple mylo ma Depression Mother High Cholesterol Mother Other Mother No Known Problems Sister Relation Name Status Comments Brother 1 Brother 2 Father Maternal Grandmother Mother Sister Social History Tobacco Use Types Packs/Day Years Used Date Smoking Tobacco: Former Cigarettes 0 09/15/1970 - 09/15/1971 Tobacco Cessation:Counseling Given: Not Answered Comments:Occasional smoker for 2 yrs Alcohol Use Standard Drinks/Week Comments Not Currently 1 (1 standard drink = 0.6 oz pure alcohol) 1 glass of wine at [place] [facility] Feeling Safe Answer Date Recorded Are you in a relationship wi th someone who hurts you emotionally and/or physically? 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 Oxygen Saturation 97% 10/13/2024 2:01 PM 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 Inhaled Oxygen Concentration - - Weight 91.9 kg (202 lb 9.6 oz) 10/13/2024 2:01 P M 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 Height 172.7 cm (5' 8 ) 09/15/2024 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 Body Mass Index 30.81 09/15/2024 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 Plan of Treatment Upcoming Encounters Date Type Department Care Team (Late st Contact Info) Description 01/13/2025 11:15 AM CDT Office Visit [facility] [place] [address] [facility] [address] [place] [address] Sadiq Yun MD [address] [facility] [address] [place] [address] Health Maintenance Due Date Last Done Comments Traditional Medicare (ACO) A nnual Wellness Visit 1969 BREAST CANCER SCREENING 1990 COLORECTAL SCREENING 11/24/1995 Colorectal Cancer Screening 11/24/1995 FIT-DNA Q 3 years 11/24/1995 FIT/FOBT Q 1 year 11/24/1995 Flex Sig/CT Colonography Q 5 years 11/24/1995 PNEUMOCOCCAL VACCINE 50+ YEA RS (1 of 1 - PCV) 2000 ZOSTER VACCINE (2 of 3) 05/09/2011 03/14/2011 DTAP/TDAP/TD VACCINES (2 - Td or Tdap) 09/07/2015 INFLUENZA VACCINE (#1) 2024 07/30/2013, 2011 RSV VACCINE (60+ or ) (1 - 1-dose 75+ series) 2025 OSTEOPOROSIS SCREENING 11/25/2027 11/24/2022 Insurance MEDICARE PART A AND B MEDICARE PART A AND B [employer] P[employer] Care Teams Restaurant Crew Relationship Specialty Start Date End Date Nii Mccollum DO [address] [facility] [address] [place] [address] PCP - General Internal Medicine 11/16/23
--- OUTSIDE RECORDS SUMMARY | 2025-01-03 10:25 | XMS_ITS | Clinical Summary ---
Author Organization [facility] Address [address] [place] [address] Phone Care Team Providers Care Captain Of Guards Name Role Phone Unavailable Unavailable Unavailable Reason for Visit and Chief Complaint gynecologic annual exam - The Chief Complaint is: WWE Problems Includes: Problems addressed during this encounter and other active Problems Current Visit Onset Date Resolved Date Provider Ebony walden Status HYPERLIPIDEMIA NEC/NOS 08/28/2010 BARRETT KEITH M.D. Active Last Documented On 0 3:46PM ; [facility] HYPERTENSION NOS 08/28/2010 ARMINDA KEITH M.D. Active Last Documented On 0 3:47PM ; [facility] Plan of Treatment - OTHER - Last Documented On 08/28/2010 4:19PM ; [facility] Follow-up 1 yr - Last Documented On 08/28/2010 4:19PM ; [facility] ? 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 SCREEN MAMMOGRAM NECRadiology/*MAMMOGRAM: Mammogram - Last Documented On 08/28/2010 4:19PM ; [facility] ? Cervical Pap SmearIn office procedures/*Clia Waived Labs: Pap Smear Taken - Last Documented On 08/28/2010 4:19PM ; [facility] ? SCREEN MAL NEOP-RECTUMIn office procedures/*Clia Waived Labs: *FIT Test (Fecal Occult Test) - Last Documented On 08/28/2010 4:19PM ; [facility] Pending Tests Order Diagnosis Results Due Ordering P rovider Radiology @ other - *MAMMOGRAPHY Mammogram SCREEN MAMMOGRAM NEC 09/11/10 ARMINDA LOZADA M.D. Last Documented On 0 4:18PM ; [facility] In office procedures - *Clia Waived Labs *FIT Test (Fecal Occult Test) SCREEN MAL NEOP-RECTUM 09/11/10 ARMINDA KEITH M.D. Last Documented On 0 4:18PM ; [facility] In office procedures - *Clia Waived Labs Pap Smear Taken SCREEN MAL NEOP-CERVIX 09/11/10 ARMINDA KEITH M.D. Last Documented On 0 4:18PM ; [facility] Lab SUREPATH PAP RFX HR HPV 09/27/10 S SHIRA KEITH M.D. Last Documented On 0 3:38PM ; [facility] Instructions to patient Instructions for patient : B reast Self Exam discussed. Reviewed monthly self breast examination and technique Last Documented On 0 4:06PM ; [facility] Recommend diet and exercise at least 30 min three times per week Last Documented On 0 4:06PM ; [facility] Discussed Gardasil vaccinati on and recommend vaccination for HPV prevention. Handout given. Patient undertsands sexual transmission of high-risk HPV and association with abnormal pap smear and cervical cancer. recommend to decrease high risk behaviors such as: number of sexual partners, smoking, and contraceptive use Last Documented On 0 4:06PM ; [facility] Recommend preventative vacci nation including but not limited to influenza/flu vaccine, DTP, Rubella, Hepatitis B vaccination series Last Documented On 0 4:06PM ; [facility] Recommend annual pap smear e xamination or every three year if high risk hpv negative and 3 consecutive normal pap examination during preceding three years Last Documented On 0 4:06PM ; [facility] Recommend TSH, fasting gluco se, fasting lipid panel, CBC, BMP Last Documented On 0 4:06PM ; [facility] Recommend Calcium supplement ation and weight bearing exercise Last Documented On 0 4:06PM ; [facility] Recommended Bone Density Last Documented On 0 4:06PM ; [facility] Recommended Colonoscopy Pt r [...] responsibility regarding scheduling and follow up with professor of communication Last Documented On 0 4:06PM ; [facility] Assessments Includes: Assessments from this encounter Findings - MAMMOGRAM SCREENING - Last Documented On 08/28/2010 4:19PM ; [facility] - NORMAL FEMALE EXAM - Last Documented On 08/28/2010 4:19PM ; [facility] - Asymptomatic postmenopausal status - Last Documented On 08/28/2010 4:19PM ; [facility] - Screening Malig. Neoplasm Rectum - Last Documented On 08/28/2010 4:19PM ; [facility] Instructions Includes: Instructions from this encounter Instructions to patient Instructions for patient : B reast Self Exam discussed. Reviewed monthly self breast examination and technique Last Documented On 0 4:06PM ; [facility] Recommend diet and exercise at least 30 min three times per week Last Documented On 0 4:06PM ; [facility] Discussed Gardasil vaccinati on and recommend vaccination for HPV prevention. Handout given. Patient undertsands sexual transmission of high-risk HPV and association with abnormal pap smear and cervical cancer. recommend to decrease high risk behaviors such as: number of sexual partners, smoking, and contraceptive use Last Documented On 0 4:06PM ; [facility] Recommend preventative vacci nation including but not limited to influenza/flu vaccine, DTP, Rubella, Hepatitis B vaccination series Last Documented On 0 4:06PM ; [facility] Recommend annual pap smear e xamination or every three year if high risk hpv negative and 3 consecutive normal pap examination during preceding three years Last Documented On 0 4:06PM ; [facility] Recommend TSH, fasting gluco se, fasting lipid panel, CBC, BMP Last Documented On 0 4:06PM ; [facility] Recommend Calcium supplement ation and weight bearing exercise Last Documented On 0 4:06PM ; [facility] Recommended Bone Density Last Documented On 0 4:06PM ; [facility] Recommended Colonoscopy Pt r [...] responsibility regarding scheduling and follow up with professor of communication Last Documented On 0 4:06PM ; [facility] Medical Equipment - Implanted Devices Includes: Current Devices No Medical Equipment Recorded Medications Includes: Medications discussed during this encounter and other current Medications Current Medications (continue as prescribed) Fish Oil 1000 MG OR CAPS 09/03/2011 Provider: Diagnosis: Last Documented On 1 9:09AM By EDDA XIAO MA ; [facility] Vitamin C 500 MG OR CHEW 09/03/2011 Provider: Diagnosis: Last Documented On 1 9:09AM By EDDA XIAO MA ; [facility] Calcium-Vitamin D 600-200 MG-UNIT OR CAPS 09/03/2011 Provider: Diagnosis: Last Documented On 1 9:08AM By EDDA XIAO MA ; [facility] Melatonin 3 MG OR CAPS 09/03/2011 Provider: Diagnosis: Last Documented On 1 9:07AM By EDDA XIAO MA ; [facility] Ambien 10 MG OR TABS 09/03/2011 Provider: Diagnosis: Last Documented On 1 9:06AM By EDDA XIAO MA ; [facility] Aleve 220 MG OR CAPS 09/03/2011 Provider: Diagnosis: Last Documented On 1 9:06AM By EDDA XIAO MA ; [facility] Aspir-Low 81 MG OR TBEC 09/03/2011 Provider: Diagnosis: Last Documented On 1 9:05AM By EDDA XIAO MA ; [facility] Doxycycline Hyclate 50 MG OR CAPS 08/04/2011 Provide r: TORSTEN CROOK MD Diagnosis: Last Documented On 1 9:05AM By EDDA XIAO MA ; [facility] Simvastatin 40 MG OR TABS 08/02/2011 Provider: Diagnosis: Last Documented On 1 9:05AM By EDDA XIAO MA ; [facility] Indapamide 1.25 MG OR TABS 08/02/2011 Provider: Diagnosis: Last Documented On 1 9:05AM By EDDA XIAO MA ; [facility] amLODIPine Besylate 5 MG OR TABS 07/08/2011 Provider : Diagnosis: Last Documented On 1 9:05AM By EDDA XIAO MA ; [facility] metroNIDAZOLE 0.75% EX CREA 05/14/2011 Provider: TORSTEN CROOK MD Diagnosis: Last Documented On 1 9:05AM By EDDA XIAO MA ; [facility] Simvastatin 40 MG OR TABS 08/28/2010 Provider: Diagnosis: Last Documented On 0 3:46PM By EDDA XIAO MA ; [facility] Cozaar 100 MG OR TABS 08/28/2010 Provider: Diagnosis: Last Documented On 0 3:45PM By EDDA XIAO MA ; [facility] Indapamide 1.25 MG OR TABS 08/28/2010 Provider: Diagnosis: Last Documented On 0 3:45PM By EDDA XIAO MA ; [facility] Past Medications on file miSOPROStol 200 MCG OR TABS 09/05/2010 - 09/07/2010 Provider: ARMINDA KEITH M.D. Diagnosis: Abn Glandular Pa p Smear Take one po at 8 am and 8 pm on the day prior to procedure Last Documented On 0 8:55AM By DR. ARMINDA KEITH ; [facility] Medications Administered Includes: Administered Medications from this encounter No Administered Medications Recorded Vital Signs Includes: Vital Signs from this encounter Vital Name 08/28/2010 04:00P Blood Pressure Sitting (mmHg) 140/80 Height (in) 69 Weight (lb) 230 Body Mass Index (kg/m2) 34.0 Body Surface Area (m2) 2.2 Last Documented: On 08/28/2010 3:51PM ; [facility] Results Includes: Results discussed during this encounter No Results Recorded For Specified Dates History of Present Illness Includes: History of Present Illness from this encounter HPI LEO HIGGINS is a 59 year old female. - No complaints. Social History Description Last Updated Age of 1st intercourse was was 21 2009 Last Documented On 0 4:19PM ; [facility] In monogamous relationship 08/28/2010 Last Documented On 0 4:19PM ; [facility] Non-smoker 08/28/2010 Last Documented On 0 4:19PM ; [facility] Not using alcohol 08/28/2010 Last Documented On 0 4:19PM ; [facility] Not using drugs 08/28/2010 Last Documented On 0 4:19PM ; [facility] Sexually active 08/28/2010 Last Documented On 0 4:19PM ; [facility] Sexually active with 1 partners in the l ast year 08/28/2010 Last Documented On 0 4:19PM ; [facility] Smoking Status Unknown Procedures and Surgical History Includes: Procedures from this encounter Procedures Code Diagnosis Performing Provider Service L ocation Service Date cervical Pap smear 54067 Last Documented On 0 4:06PM ; [facility] a fecal occult blood test was negative 37180 Last Documented On 0 4:06PM ; [facility] Surgical History Last Updated Dilation + Curettage 08/28/2010 Last Documented On 0 4:19PM ; [facility] History of cholecystectomy 08/28/2010 Last Documented On 0 4:19PM ; [facility] No Bilateral salpingo-oophorectomy 08/28 Last Documented On 0 4:19PM ; [facility] No Breast Biopsy 08/28/2010 Last Documented On 0 4:19PM ; [facility] No Ectopic surgery 08/28/2010 Last Documented On 0 4:19PM ; [facility] No Endometrial Ablation 08/28/2010 Last Documented On 0 4:19PM ; [facility] No history of appendectomy 08/28/2010 Last Documented On 0 4:19PM ; [facility] No history of Loop electrode excision of cervix (LEEP) 08/28/2010 Last Documented On 0 4:19PM ; [facility] No history of total abdominal hysterecto my 08/28/2010 Last Documented On 0 4:19PM ; [facility] No history of vaginal hysterectomy 08/28 Last Documented On 0 4:19PM ; [facility] No Laparoscopic Hysterectomy 08/28/2010 Last Documented On 0 4:19PM ; [facility] No Ovarian Cystectomy 08/28/2010 Last Documented On 0 4:19PM ; [facility] No Tonsillectomy 08/28/2010 Last Documented On 0 4:19PM ; [facility] Previous colposcopy 08/28/2010 Last Documented On 0 4:19PM ; [facility] History of tubal ligation 08/28/2010 Last Documented On 0 4:19PM ; [facility] Medical History Includes: Medical History addressed during this encounter Description Last Updated Vaginal delivery 08/28/2010 Last Documented On 0 4:19PM ; [facility] History of benign essential hypertension 08/28/2010 Last Documented On 0 4:19PM ; [facility] History of hyperlipidemia 08/28/2010 Last Documented On 0 4:19PM ; [facility] A colonoscopy was performed 08/28/2010 Last Documented On 0 4:19PM ; [facility] 2 08/28/2010 Last Documented On 0 4:19PM ; [facility] Last mammogram date: 200808/28/2010 Last Documented On 0 4:19PM ; [facility] LMP: 200308/28/2010 Last Documented On 0 4:19PM ; [facility] Para 2 08/28/2010 Last Documented On 0 4:19PM ; [facility] Patient recently had a dexa scan 010 Last Documented On 0 4:19PM ; [facility] Family History Includes: Family History addressed during this encounter Description Last Updated Spouse name: [place] 08/28/2010 Last Documented On 0 4:19PM ; [facility] Family history of hypertension 0 Last Documented On 0 4:19PM ; [facility] Family history of malignant female breas t neoplasm 08/28/2010 Last Documented On 0 4:19PM ; [facility] No family history of diabetes mellitus 1 10/29/2009 Last Documented On 0 4:19PM ; [facility] No family history of hypercholesterolemi a 08/28/2010 Last Documented On 0 4:19PM ; [facility] No family history of malignant neoplasm of the large intestine 08/28/2010 Last Documented On 0 4:19PM ; [facility] No family history of malignant neoplasm of the ovary 08/28/2010 Last Documented On 0 4:19PM ; [facility] No family history of uterine cancer 08/08 Last Documented On 0 4:19PM ; [facility] No heart disease 08/28/2010 Last Documented On 0 4:19PM ; [facility] Review of Systems Includes: Review of [...] ent Last Documented On 0 4:04PM ; [facility] Influenza (Quadrivalent)36 m o.& older PF 0.5ml (SD) 1 Complete (Reported) Patient Last Documented On 0 4:04PM ; [facility] Td 1 Complete (Reported) Cally ent Last Documented On 0 4:04PM ; [facility] Allergies Includes: Active Allergies No Known Allergies Encounters Encounter Provider Location Date Check-In Time Check-Out Time Diagnosis 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 [facility] [employer] 08/28/20 10 3:17PM 4:17PM Normal Female Exam,Other Screening For Malignant Neoplasm of Breast Z12.39,Screening Malig. Neoplasm Rectum,Asymptomat ic Postmenopausal Status Clinical Notes Includes: Clinical Notes from this encounter No Clinical Notes Recorded
--- OUTSIDE RECORDS SUMMARY | 2025-01-03 10:25 | XMS_ITS | Clinical Summary ---
Author Organization [facility] Address [address] [place] [address] Phone Care Team Providers Care Rag Baler Name Role Phone Unavailable Unavailable Unavailable Reason for Visit and Chief Complaint CHART UPDATE Problems Includes: Problems addressed during this encounter and other active Problems All Visits Onset Date Resolved Date Provider Condition S tatus HYPERLIPIDEMIA NEC/NOS 08/28/2010 BARRETT KEITH M.D. Active Last Documented On 0 3:46PM ; [facility] HYPERTENSION NOS 08/28/2010 ARMINDA KEITH M.D. Active Last Documented On 0 3:47PM ; [facility] Plan of Treatment - ABNORMAL PAP SMEAR - Last Documented On 09/05/2010 8:55AM ; [facility] Misoprostol 200 MCG TABS, as directed, 2 days, 0 refills, Take one po at 8 am and 8 pm on the day prior to procedure - Last Documented On 09/05/2010 8:55AM ; [facility] ? OTHERFollow-up PLEASE PHONE IN [place] TO PHARMACY - Last Documented On 09/05/2010 8:55AM ; [facility] Assessments Includes: Assessments from this encounter No [...] By DR. ARMINDA KEITH ; [facility] Current Medications (continue as prescribed) Fish Oil 1000 MG OR CAPS 09/03/2011 Provider: Diagnosis: Last Documented On 1 9:09AM By EDDA XIAO MA ; [facility] Vitamin C 500 MG OR CHEW 09/03/2011 Provider: Diagnosis: Last Documented On 1 9:09AM By EDDA XIAO MA ; [facility] Calcium-Vitamin D 600-200 MG-UNIT OR CAPS 09/03/2011 Provider: Diagnosis: Last Documented On 1 9:08AM By EDDA XIAO MA ; [facility] Melatonin 3 MG OR CAPS 09/03/2011 Provider: Diagnosis: Last Documented On 1 9:07AM By EDDA XIAO MA ; [facility] Ambien 10 MG OR TABS 09/03/2011 Provider: Diagnosis: Last Documented On 1 9:06AM By EDDA XIAO MA ; [facility] Aleve 220 MG OR CAPS 09/03/2011 Provider: Diagnosis: Last Documented On 1 9:06AM By EDDA XIAO MA ; [facility] Aspir-Low 81 MG OR TBEC 09/03/2011 Provider: Diagnosis: Last Documented On 1 9:05AM By EDDA XIAO MA ; [facility] Doxycycline Hyclate 50 MG OR CAPS 08/04/2011 Provide r: TORSTEN CROOK MD Diagnosis: Last Documented On 1 9:05AM By EDDA XIAO MA ; [facility] Simvastatin 40 MG OR TABS 08/02/2011 Provider: Diagnosis: Last Documented On 1 9:05AM By EDDA XIAO MA ; [facility] Indapamide 1.25 MG OR TABS 08/02/2011 Provider: Diagnosis: Last Documented On 1 9:05AM By EDDA XIAO MA ; [facility] amLODIPine Besylate 5 MG OR TABS 07/08/2011 Provider : Diagnosis: Last Documented On 1 9:05AM By EDDA XIAO MA ; [facility] metroNIDAZOLE 0.75% EX CREA 05/14/2011 Provider: TORSTEN CROOK MD Diagnosis: Last Documented On 1 9:05AM By EDDA XIAO MA ; [facility] Simvastatin 40 MG OR TABS 08/28/2010 Provider: Diagnosis: Last Documented On 0 3:46PM By EDDA XIAO MA ; [facility] Cozaar 100 MG OR TABS 08/28/2010 Provider: Diagnosis: Last Documented On 0 3:45PM By EDDA XIAO MA ; [facility] Indapamide 1.25 MG OR TABS 08/28/2010 Provider: Diagnosis: Last Documented On 0 3:45PM By EDDA XIAO MA ; [facility] Medications Administered Includes: Administered Medications [...] 2009 Last Documented On 0 8:55AM ; [facility] In monogamous relationship 08/28/2010 Last Documented On 0 8:55AM ; [facility] Non-smoker 08/28/2010 Last Documented On 0 8:55AM ; [facility] Not using alcohol 08/28/2010 Last Documented On 0 8:55AM ; [facility] Not using drugs 08/28/2010 Last Documented On 0 8:55AM ; [facility] Sexually active 08/28/2010 Last Documented On 0 8:55AM ; [facility] Sexually active with 1 partners in the l ast year 08/28/2010 Last Documented On 0 8:55AM ; [facility] Smoking Status Unknown Procedures and Surgical History Surgical History Last Updated No Tonsillectomy 09/03/2011 Last Documented On 0 8:55AM ; [facility] Dilation + Curettage 08/28/2010 Last Documented On 0 8:55AM ; [facility] History of cholecystectomy 08/28/2010 Last Documented On 0 8:55AM ; [facility] No Bilateral salpingo-oophorectomy 08/28 Last Documented On 0 8:55AM ; [facility] No Breast Biopsy 08/28/2010 Last Documented On 0 8:55AM ; [facility] No Ectopic surgery 08/28/2010 Last Documented On 0 8:55AM ; [facility] No Endometrial Ablation 08/28/2010 Last Documented On 0 8:55AM ; [facility] No history of appendectomy 08/28/2010 Last Documented On 0 8:55AM ; [facility] No history of Loop electrode excision of cervix (LEEP) 08/28/2010 Last Documented On 0 8:55AM ; [facility] No history of total abdominal hysterecto my 08/28/2010 Last Documented On 0 8:55AM ; [facility] No history of vaginal hysterectomy 08/28 Last Documented On 0 8:55AM ; [facility] No Laparoscopic Hysterectomy 08/28/2010 Last Documented On 0 8:55AM ; [facility] No Ovarian Cystectomy 08/28/2010 Last Documented On 0 8:55AM ; [facility] Previous colposcopy 08/28/2010 Last Documented On 0 8:55AM ; [facility] History of tubal ligation 08/28/2010 Last Documented On 0 8:55AM ; [facility] Medical History Includes: Medical History addressed during this encounter Description Last Updated Last mammogram date: 200809/03/2011 Last Documented On 0 8:55AM ; [facility] Vaginal delivery 08/28/2010 Last Documented On 0 8:55AM ; [facility] History of benign essential hypertension 08/28/2010 Last Documented On 0 8:55AM ; [facility] History of hyperlipidemia 08/28/2010 Last Documented On 0 8:55AM ; [facility] A colonoscopy was performed 08/28/2010 Last Documented On 0 8:55AM ; [facility] 2 08/28/2010 Last Documented On 0 8:55AM ; [facility] LMP: 2004 08/28/2010 Last Documented On 0 8:55AM ; [facility] Para 2 08/28/2010 Last Documented On 0 8:55AM ; [facility] Patient recently had a dexa scan 010 Last Documented On 0 8:55AM ; [facility] Family History Includes: Family History addressed during this encounter Description Last Updated Spouse name: AL 08/28/2010 Last Documented On 0 8:55AM ; [facility] Family history of hypertension 0 Last Documented On 0 8:55AM ; [facility] Family history of malignant female breas t neoplasm 08/28/2010 Last Documented On 0 8:55AM ; [facility] No family history of diabetes mellitus 1 10/29/2009 Last Documented On 0 8:55AM ; [facility] No family history of hypercholesterolemi a 08/28/2010 Last Documented On 0 8:55AM ; [facility] No family history of malignant neoplasm of the large intestine 08/28/2010 Last Documented On 0 8:55AM ; [facility] No family history of malignant neoplasm of the ovary 08/28/2010 Last Documented On 0 8:55AM ; [facility] No family history of uterine cancer 08/08 Last Documented On 0 8:55AM ; [facility] No heart disease 08/28/2010 Last Documented On 0 8:55AM ; [facility] Review of Systems Includes: Review of Systems [...]
--- OUTSIDE RECORDS SUMMARY | 2025-01-03 10:25 | XMS_ITS | Referral Summary ---
Author Organization [facility] al Address [address] [place] [address] Care Team Providers Care Dormitory Counselor Name Role Phone Skinny Zarate MD Primary Care Provider [phone] Allergies Active Allergy Reactions Criticality Noted Date Comments Amlodipine Headache,Palpitatio ns Low 09/18/2023 Enalapril Other (See comments) Reaction: Unknown, Guaifenesin Other (See comments) Reaction: OTHER, Lisinopril Cough Low 09/18/2023 Losartan Nickel Rash Medium 09/18/2023 Bally 0-Cba-Fis-Fish Oil Headache Low 09/18/2023 Spironolactone Joint pain [...] 40 mg tablet daily. 7 Active omega 4-wup-yuw-fish oil 300-1,000 mg capsule TAKE ONE CAPSULE [...] adsorbed 09/07/1996 Tdap 09/07/2005 ZOSTER LIVE 03/14/2011 Social History Tobacco Use Types Packs/Day Years Used Date Smoking Tobacco: Never Smokeless Tobacco: Never Tobacco Cessation:Counseling Given: Not Answered Alcohol Use Standard Drinks/Week Comments Yes 0 (1 standard drink = 0.6 oz pur e alcohol) Comments Unknown Sex and Gender Information Value Date Recorded Sex Assigned at Not on file Legal Sex Female 4:59 PM RECORDIST CHIEF Gender Identity Not on file Sexual Orientation Not on file Last Filed Vital Signs Vital Sign Reading Time Taken Comments Blood Pressure 144/82 09/18/2023 8:46 AM RECORDIST CHIEF Pulse 104 09/18/2023 8:46 AM RECORDIST CHIEF Temperature - - Respiratory Rate - - Oxygen Saturation 97% 09/18/2023 8:46 AM RECORDIST CHIEF Inhaled Oxygen Concentration - - Weight 89.4 kg (197 lb) 09/18/2023 8:46 AM RECORDIST CHIEF Height 172.7 cm (5' 8 ) 09/18/2023 8:46 AM RECORDIST CHIEF Body Mass Index 29.95 09/18/2023 8:46 AM RECORDIST CHIEF Plan of Treatment Not on file Insurance MEDICARE [facility] BENEFIT PLAN MEDICARE [facility] BENEFIT PLAN Care Teams Dormitory Counselor Relationship Specialty Start Date End Date Skinny Zarate MD [address] [facility] [address] [place] [address] PCP - General 03/12/17
[2025-01-03 12:58] LABS: Folic Acid > 20.0 ng/mL (2.76->20)
== END 2025-01-03 09:30 | disposition home or self-care (01) ==
LOC: ANHLAB 09:31
PROVIDERS: Visit Provider Internal Medicine Hematology & Oncology
DX: D64.9 Anemia, unspecified (principal)
CPT/HCPCS: 36415; 82607; 82746; 85027; 85055

== ENCOUNTER 2025-02-23 09:12 | Emergency (ER) | payer MEDICARE, OTHER, SELFPAY ==
[2025-02-23 09:28] VITALS: BP 162/88; PULSE 76; RESP 14; TEMP 36.9; O2SAT 100
--- NOTE | 2025-02-23 09:45 | ECG_ITS ---
Test Date: 2025-02-23 09:57:54 Measurements Intervals [place] Rate: 66 P: 57 WI: 151 QRS: 18 QRSD: 94 T: 37 QT: 385 QTc: 405 Interpretive Statements SINUS RHYTHM BASELINE ARTIFACT- II, III, AVR, AVL ,AVF NORMAL ECG No previous ECG available for comparison Electronically Signed On 02-23-2025 10:00:37 CDT by Turner Tomlinson D.O.
--- NOTE | 2025-02-23 09:48 | ED.DIZZY ---
HPI - Dizziness General Chief Complaint: Dizziness Stated Complaint: Dizzy spells since Thursday, nausea Time Seen by Provider: 02/23/25 09:35 Source: patient, family and RN notes reviewed Mode of arrival: ambulatory Limitations: no limitations History of Present Illness HPI Narrative: 74-year-old female presents Express Care complaining of dizziness proximally 1 week. Patient reports she feels dizzy along with nausea when she is lying flat to feels like the room is spinning. Patient says it is better when she sits up. Patient denies any headaches, blurry vision, vision changes, vomiting, chest pain, shortness of breath, focal weakness, slurred speech, facial droop, confusion, or any falls. Patient is not draining nxmj-eqi-wmlovsm help with symptoms. Patient is also reported that her right ear has been hurting as well. Patient states he uses a walker due to her history drop foot. Related Data Home Medications ?Medication ?Instructions ?Recorded ?Confirmed ?Last Taken ?Type ascorbic acid (vitamin C) 1,000 mg 1 gm PO DAILY 12/20/19 02/23/25 10/14/22 History tablet diphenhydramine HCl 25 mg tablet 25 mg PO QID PRN Allergy Symptoms 06/20/20 02/23/25 09/21/22 History (Benadryl Allergy) alpha lipoic acid 600 mg tablet 1,200 mg PO DAILY 07/21/23 02/23/25 Unknown History cyanocobalamin (vitamin B-12) 1,000 mcg PO DAILY 11/10/24 02/23/25 Unknown History 1,000 mcg tablet (Vitamin B-12) loratadine 10 mg tablet (Claritin) 10 mg PO DAILY 01/17/25 02/23/25 Unknown History [id number] fum 65 mg pkg PO 01/17/25 01/17/25 Unknown History iron-folic acid 1 mg-dha 250 mg oral declan Allergies Allergy/AdvReac Type Severity Reaction Status Date / Time amlodipine Allergy Mild headache Verified 02/23/25 09:28 and tachycardia lisinopril Allergy Mild Cough Verified 02/23/25 09:28 nickel AdvReac Severe RASH Verified 02/23/25 09:28 omega-3 acid ethyl esters AdvReac Severe HEADACHES Verified 02/23/25 09:28 watermelon AdvReac Severe HEADACHES Verified 02/23/25 09:28 guaifenesin AdvReac Intermediate GETS Verified 02/23/25 09:28 SEVERELY DEPRESSED hydrocodone AdvReac Intermediate Hallucinati Verified 02/23/25 09:28 ng morphine AdvReac Intermediate Hallucinati Verified 02/23/25 09:28 ng erythritol AdvReac Mild Diarrhea Verified 02/23/25 09:28 spironolactone AdvReac Mild Leg pain Verified 02/23/25 09:28 CARDAMOM Allergy Severe THROAT Uncoded 02/23/25 09:28 SWELLING. Review of Systems Review of Systems: CONSTITUTIONAL: Denies fever, chills, or sweats. EYES: Denies visual changes, blurry vision, redness, or discharge. ENT: Denies rhinorrhea, congestion, sore throat, Positive or otalgia. CARDIOVASCULAR: Denies chest pain, palpitations, lightheadedness, syncope, presyncope, or edema. Positive for dizziness RESPIRATORY: Denies cough or dyspnea. GASTROINTESTINAL: Denies abdominal pain, nausea, vomiting, or diarrhea. GENITOURINARY: Denies dysuria or hematuria. SKIN: Denies rash or itching. MUSCULOSKELETAL: Denies back pain, joint pain, or myalgia. NEUROLOGIC: Denies headache, numbness, seizures, or weakness. PSYCHIATRIC: Denies anxiety or depression. All other systems reviewed are negative, except as documented in HPI. [facility] Past Medical History Medical History Drop foot gait Neuropathy Surgical History Surgical History History of total knee arthroplasty Family History Family History Father Family history of malignant neoplasm Patient's father is Mother Family history of malignant neoplasm Patient's mother is Other Depression Family history of alcoholism Family history of atrial fibrillation Family history of chronic obstructive pulmonary disease Family history of congestive heart failure Family history of elevated blood lipids Family history of lung disease Family history of malignant neoplasm of breast in first degree relative Family history of mental disorder Family history of obesity Hypertension Social History Social History Years smoked: 2 Smoking status: Former smoker Tobacco type: cigarettes Second hand tobacco smoke exposure: No Smoking end date: 09/07/74 Additional smoking assessment comments: DENIES ANY FORM OF TOBACCO USE Alcohol intake: current Substance use: never Substance use type: does not use Lack of Transportation: No Lack of Food: Never True Current Housing: I Have Housing Concerned About Future Housing: No Difficulty Paying Gas/Electric Bills: No Difficulty Paying for Meds: No Currently Unemployed: No Education: Master's Degree or Higher Difficulty w/ Childcare or Family Care: No Living arrangements: with family Spiritual care concerns: No Comments At the time of my signature, I reviewed and agree with the nursing past medical, surgical, social, and family history. There is no relevant family history pertinent to the patient complaint. Exam Narrative: GENERAL: This is a well-nourished, well-developed adult, in no apparent distress. They are non ill-appearing, nontoxic appearing. Patient uses a walker. HEAD: normocephalic, atraumatic. EYES: Sclera clear/white. Conjunctiva normal. Vision is grossly intact. Extraocular movements intact. Pupils PERRLA. No nystagmus. Negative Nithya-Hallpike maneuver EARS: External ears normal, right auditory canal with impacted cerumen. Left auditory canal clear without redness or swelling, TMs normal without perforation. Hearing grossly intact. NOSE: External nose normal with no obvious nasal discharge, nasal turbinates without redness, no rhinorrhea. THROAT: Mucous membranes moist, posterior pharynx clear, without erythema or swelling. Uvula midline. NECK: Neck supple, non-tender without lymphadenopathy, masses or thyromegaly. CARDIOVASCULAR: Regular rate and rhythm without murmurs, gallops, or rubs. RESPIRATORY: Clear to auscultation. Breath sounds equal bilaterally. No wheezes, rales, or rhonchi. SKIN: warm, Dry, intact with no suspicious lesions or rash, good texture and turgor. NEURO: awake, alert, and oriented to person, place and time. There were no obvious focal neurologic abnormalities. Insulation Board Calender Operator strength equal bilaterally, no pronator drift no facial droop, speech is clear. Leg strength strong and equal bilaterally. Patient is ambulatory with a steady gait. EXTREMITIES: No joint tenderness, effusion, or edema noted. BACK: Nontender without deformity. Course Course Emergency Course: Portions of this record may have been created with voice recognition software Level of Care: Express Care Visit Vital Signs Vital signs: Vital Signs Temperature 98.4 F 02/23/25 09:28 Pulse Rate 76 02/23/25 09:28 Respiratory Rate 14 02/23/25 09:28 Blood Pressure 162/88 H 02/23/25 09:28 Pulse Oximetry 100 02/23/25 09:28 Oxygen Delivery Room Air 02/23/25 09:28 Temperature 98.4 F 02/23/25 09:28 Pulse Rate 76 02/23/25 09:28 Respiratory Rate 14 02/23/25 09:28 Blood Pressure 162/88 H 02/23/25 09:28 Pulse Oximetry 100 02/23/25 09:28 Oxygen Delivery Room Air 02/23/25 09:28 Reviewed Procedures Ear Wax Removal Right Ear: Ear Wax Removal Date: 02/23/25 Ear Wax Removal Time: 09:50 Results: Re-examined: cerumen removed completely TM Examination: TM(s) intact, normal appearance Ear Canal Exam: atraumatic Patient Tolerated Procedure: well Complications: no problems Technique: ear canal curetted MDM - Dizziness MDM Narrative Medical decision making narrative: Circle-Hallpike maneuver was negative. NIH score 0. Patient did have impacted cerumen to right auditory canal, which could be contributed to her vertigo. Earwax successfully removed. EKG normal sinus rhythm without ischemic findings. Will prescribe meclizine. Discussed physical exam findings. Advised supportive measures and signs/symptoms to go to the ER. Pt is appropriate for outpt treatment and f/u. Differential Diagnosis Differential diagnosis: Likely other (CVA, vestibular disorder, BPPV, vertigo) ECG Data EKG #1: ECG completion date: 02/23/25 ECG completion time: 09:57 Prior ECG tracings: available for review EKG Interpretation: normal rate, sinus rhythm, normal QRS and no acute changes Critical Care Time Critical Care Time Critical Care Time: No Discharge Plan Discharge Clinical Impression: Dizziness Cerumen impaction Qualifiers: Laterality: right Qualified Code(s): H61.21 - Impacted cerumen, right ear Patient Disposition: Home Condition: Stable Instructions: Dizziness (ED) Additional Instructions: Ear wax was removed from her right auditory canal today. EKG is normal. Please take the meclizine as directed. Do not drive or operate machinery while taking meclizine as it may make you drowsy. Please follow-up with PCP in 3-5 days. If he develops any slurred speech, facial droop, vision changes, blurry vision, one-sided weakness, projectile vomiting, uncontrollable dizziness, or any other concerns please go to the ER immediately. Patient Language: Guyanese Prescriptions: New meclizine 25 mg tablet 25 mg PO TID PRN (Reason: dizziness) 3 Days Qty: 9 0RF No Action diphenhydramine HCl [Benadryl Allergy] 25 mg tablet 25 mg PO QID PRN (Reason: Allergy Symptoms) Patient Comments: TAKES PRN cyanocobalamin (vitamin B-12) [Vitamin B-12] 1,000 mcg tablet 1,000 mcg PO DAILY loratadine [Claritin] 10 mg tablet 10 mg PO DAILY vit [id number]-[id number] 65-1-250 mg combo pack PO ascorbic acid (vitamin C) 1,000 mg tablet 1 gm PO DAILY simvastatin 40 mg tablet 40 mg PO DAILY Qty: 90 1RF Patient Comments: THURSDAY,THURSDAY,THURSDAY AND THURSDAY Rx Instructions: Take 4 times a week acetaminophen 500 mg Tablet 1,000 mg PO Q6HR Qty: 90 0RF alpha lipoic acid 600 mg tablet 1,200 mg PO DAILY Rx Instructions: 600 mg ergocalciferol (vitamin D2) [Vitamin D2] 1,250 mcg (50,000 unit) capsule 1,250 mcg PO WEEKLY Qty: 13 1RF Patient Comments: TAKES ON SUNDAYS olmesartan 20 mg tablet See Rx Instructions .ROUTE .COMPLEX Qty: 90 3RF Dose Instruction: TAKE 1 TABLET BY MOUTH EVERY DAY Rx Instructions: TAKE 1 TABLET BY MOUTH EVERY DAY Follow-up/Referrals: Nii Mccollum DO [Primary Care Provider] - Time of Disposition: 10:14
== END 2025-02-23 10:33 | disposition home or self-care (01) ==
PROVIDERS: PCP Internal Medicine
DX: R42 Dizziness and giddiness (principal); H61.21 Impacted cerumen, right ear; Z87.891 Personal history of nicotine dependence; G62.9 Polyneuropathy, unspecified
CPT/HCPCS: 69210; 93005; 99213; G0463